=== PATIENT | female | born 1960 | race Caucasian/White ===

== ENCOUNTER 2017-10-30 13:15 | Emergency (ER) | payer SELFPAY ==
--- NOTE | 2017-10-30 13:58 | UC ---
Lower Extremity/Ankle HPI - HPI Summary HPI Summary: Patient fell about 2 weeks ago and several days later noticed left lower extremity pain and swelling. Since then pain, swelling and redness of the skin have worsened. She is no longer able to walk without significant pain. She denies fever, chest pain, shortness of breath, dizziness. 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 - History of Current Complaint Chief Complaint: UCLowerExtremity Stated Complaint: LEG SWELLING Time Seen by Provider: 10/30/17 13:43 Hx Obtained From: Patient Onset/Duration: Gradual Onset, Lasting Weeks, Still Present Severity Initially: Moderate Severity Currently: Moderate Pain Intensity: 5 Pain Scale Used: 0-10 Numeric Aggravating Factor(s): Standing, Ambulation Alleviating Factor(s): Rest Able to Bear Weight: Yes - with pain - Allergies/Home Medications Allergies/Adverse Reactions: Allergies Allergy/AdvReac Type Severity Reaction Status Date / Time shellfish derived Allergy Vomiting Verified 10/30/17 13:33 Home Medications: Home Medications NK [No Home Medications Reported] 10/30/17 [History Confirmed 10/30/17] PMH/Surg Hx/FS Hx/Imm Hx Previously Healthy: Yes - 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 None have received medical evaluations - Social History Alcohol Use: None Substance Use Type: None Smoking Status (MU): Never Smoked Tobacco Review of Systems Constitutional: Negative Skin: Other - Left lower extremity erythema Respiratory: Negative Cardiovascular: Negative Gastrointestinal: Negative Genitourinary: Negative Musculoskeletal: Calf Tenderness, Decreased ROM, Edema All Other Systems Reviewed And Are Negative: Yes Physical Exam Triage Information Reviewed: Yes Appearance: Well-Appearing, No Pain Distress, Obese Vital Signs: Initial Vital Signs Temp 96.6 F 10/30/17 13:27 Pulse 102 10/30/17 13:27 Resp 18 10/30/17 13:27 BP 210/113 10/30/17 13:27 Pulse Ox 98 10/30/17 13:27 Vital Signs Reviewed: Yes Eyes: Positive: Conjunctiva Clear ENT: Positive: Hearing grossly normal Neck: Positive: Supple Respiratory Exam: Normal Cardiovascular: Positive: Tachycardia Abdomen Description: Positive: Soft Musculoskeletal: Positive: ROM Limited @ - Left foot and ankle, Edema @ - 3+ pitting edema mid calf to left foot Neurological: Positive: Alert Psychological: Positive: Age Appropriate Behavior Skin: Positive: Other - Left lower extremity erythema from below the knee to foot Lower Extremity Course/Dx - Course Course Of Treatment: Patient advised to go to the [facility] for further evaluation of her left lower extremity redness and swelling. Concern for blood clot vs cellulitis vs fracture. Patient also has dangerously elevated blood pressure. 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 Unknown for how long her pressure has been this elevated. PT OFFERED TRANSPORT BY AMBULANCE BUT DECLINES. ADVISED THAT BY NOT TRAVELING IN A MONITORED SETTING SHE COULD BE RISKING WORSENING OF HER CONDITION THAT COULD POSE A THREAT TO HER LIFE, HEALTH AND MEDICAL SAFETY. SHE VERBALIZES UNDERSTANDING AND CONTINUES TO DECLINE AMBULANCE TRANSFER. - Differential Dx/Diagnosis Provider Diagnoses: 1. LLE EDEMA/ERYTHEMA. 2. UNCONTROLLED HYPERTENSION Discharge - Sign-Out/Discharge Documenting (check all that apply): Discharge - Discharge Plan Condition: Stable Disposition: HOME Patient Education Materials: Leg Edema (ED), Hypertension (ED) Referrals: No Primary Care Phys,NOPCP [Primary Care Provider] - Additional Instructions: Go directly to the [facility] from here for further evaluation of your left lower extremity redness/swelling and your significantly elevated blood pressure. YOU HAVE DECLINED AMBULANCE TRANSFER. BE ADVISED THAT BY NOT TRAVELING IN A MONITORED SETTING YOU COULD BE RISKING WORSENING OF YOUR CONDITION THAT COULD POSE A THREAT TO YOUR LIFE, HEALTH AND MEDICAL SAFETY. CALL THE NUMBER BELOW FOR ASSISTANCE IN ESTABLISHING WITH A PCP An additional resource available to assist in finding the appropriate physician for your health care needs is the [facility] ([facility]). You may contact them by calling [phone]. - Billing Disposition and Condition Condition: STABLE Disposition: HOME
[2017-10-30 14:16] VITALS: BP 210/90
== END 2017-10-30 14:10 | disposition home or self-care (01) ==
LOC: UCEAST 13:15
DX: R60.0 Localized edema (principal); I10 Essential (primary) hypertension; M79.605 Pain in left leg; R00.0 Tachycardia, unspecified
CPT/HCPCS: 99202; G0463

== ENCOUNTER 2017-10-30 14:39 | Inpatient (IN) | payer MEDICAID ==
[2017-10-30 16:47] LABS: EGFR Non-African American 73.4 (>60)
[2017-10-30 16:50] LABS: Hematocrit 38 % (35-47); Hemoglobin 12.8 g/dl (12.0-16.0); Mean Corpuscular HGB Conc 34 g/dl (31-36); Mean Corpuscular Hemoglobin 29 pg (27-31); Mean Corpuscular Volume 87 fL (80-97); Mean Platelet Volume 9.5 um3 (7.4-10.4); Platelet Count 442 10^3/ul (150-450); Red Blood Count 4.35 10^6/ul (4.0-5.4); Red Cell Distribution Width 14 % (10.5-15); White Blood Count 15.9 10^3/ul (3.5-10.8)
--- NOTE | 2017-10-30 16:52 | ED ---
Skin Complaint - HPI Summary HPI Summary: C/O LLE PAIN, SWELLING, REDNESS X 11 DAYS, WORSE IN PAST 3-4 DAYS. ALSO C/O "INCONTINENCE BECAUSE I CANT GET TO BATHROOM FAST ENOUGH BECAUSE OF LEG PAIN". HX OF FALL 2 WEEKS AGO, WITH NO APPARENT WOUNDS. DENIES PURULENT D/C, FEVER, CP , SOB, LOSS OF SENSATION OF FUNCTION IN LLE, N/V/D, ABDO PAIN, URINARY PAIN. MED HX UNKNOWN. 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 - History of Current Complaint Chief Complaint: EDRashSkinAbscess Time Seen by Provider: 10/30/17 15:11 Stated Complaint: LT LEG PROBLEM Hx Obtained From: Patient Onset/Duration: Started Days Ago, Started Weeks Ago Skin Exposure Onset/Duration: Days Ago Timing: Constant Onset Severity: Moderate Current Severity: Moderate Pain Intensity: 6 Pain Scale Used: 0-10 Numeric Skin Location: Discrete, Leg Character: Swelling, Pain, Redness, Painful Aggravating Symptom(s): Touch, Other: - WEIGHT BEARING Alleviating Symptom(s): Nothing Related History: Trauma - Allergy/Home Medications Allergies/Adverse Reactions: Allergies Allergy/AdvReac Type Severity Reaction Status Date / Time shellfish derived Allergy Vomiting Verified 10/30/17 13:33 PMH/Surg Hx/FS Hx/Imm Hx Endocrine/Hematology History: Denies: Hx Anticoagulant Therapy Infectious Disease History: No Infectious Disease History: Denies: Traveled Outside the [place] in Last 30 Days - Family History Known Family History: Positive: Unknown - [employer] scientists. None have received medical evaluations - Social History Alcohol Use: None Substance Use Type: Reports: None Smoking Status (MU): Never Smoked Tobacco Review of Systems Constitutional: Negative Eyes: Negative ENT: Negative Cardiovascular: Negative Respiratory: Negative Gastrointestinal: Negative Positive: incontinence Musculoskeletal: Negative Positive: Other Neurological: Negative Psychological: Normal All Other Systems Reviewed And Are Negative: No Physical Exam Triage Information Reviewed: Yes Vital Signs On Initial Exam: Initial Vitals Temp Pulse Resp BP Pulse Ox 98.7 F 104 16 197/99 99 10/30/17 14:40 10/30/17 14:40 10/30/17 14:40 10/30/17 14:40 10/30/17 14:40 Vital Signs Reviewed: Yes Appearance: Positive: Well-Appearing Skin: Positive: Warm, Tender, Erythema @. Negative: Weeping Skin/Lesions, Lymphangitis Head/Face: Positive: Normal Head/Face Inspection Eyes: Positive: Normal ENT: Positive: Normal ENT inspection Neck: Positive: Supple Respiratory/Lung Sounds: Positive: Clear to Auscultation Cardiovascular: Positive: Normal Abdomen Description: Positive: Nontender Musculoskeletal: Positive: Edema Left Neurological: Positive: Normal Psychiatric: Positive: Normal AVPU Assessment: Alert - Nahid Coma Scale Best Eye Response: 4 - Spontaneous Best Motor Response: 6 - Obeys Commands Best Verbal Response: 5 - Oriented Coma Scale Total: 15 Procedures - Incision and Drainage Site: left medial ankle Anesthesia: Other - none. pt opted for simple incision w/o anesthesia Instrument(s): Scalpel - superficial lancing. no purulent drainage. no indication of abscess per local US by dr salmeron Packing: Gauze Diagnostics - Vital Signs Vital Signs Temp Pulse Resp BP Pulse Ox 10/30/17 14:40 98.7 F 104 16 197/99 99 - Laboratory Result Diagrams: 10/30/17 16:18 10/30/17 16:18 Lab Statement: Any lab studies that have been ordered have been reviewed, and results considered in the medical decision making process. - Ultrasound No standard instances Ultrasound Interpretation: No Acute Changes Ultrasound Interpretation Completed By: Radiologist - EKG 1 Cardiac Rate: Tachycardia EKG Rhythm: Sinus Tachycardia ST Segment: Non-Specific Ectopy: None - Additional Comments Diagnostic Additional Comments: PT REFUSED PAIN MEDICATION. Course/Dx - Differential Diagnoses - Skin Complaint Differential Diagnoses: Cellulitis - Diagnoses Provider Diagnoses: Cellulitis, Hypertension, Diabetes mellitus, new onset, Inadequate healthcare resources, UTI (urinary tract infection) - Physician Notifications Instructed by Provider To: Admit As Inpatient Discharge - Sign-Out/Discharge Documenting (check all that apply): Discharge - ADMIT - Discharge Plan Condition: Stable Disposition: ADMITTED TO [facility] Billing Disposition and Condition Condition: STABLE Disposition: [facility]
--- NOTE | 2017-10-30 17:03 | RAD ---
INDICATION: Right wrist swelling left lower extremity. COMPARISON: There are no prior studies available for comparison. TECHNIQUE: Multiple real-time, color flow and Doppler tracings of the left lower extremity were obtained. FINDINGS: The common femoral, femoral, profunda femoral and popliteal veins all demonstrate normal compressibility, augmentation with compression and phasic response with respiration. The posterior tibial and peroneal veins demonstrate normal compressibility and augmentation with compression. IMPRESSION: NO EVIDENCE FOR DEEP VENOUS THROMBOSIS.
[2017-10-30] MEDS ORDERED: Insulin REGULAR(*) 1 UNITS UNIT SUBCUT ONE (18:14)
[2017-10-30] MEDS ORDERED: NS 0.9% 1000 ML* 1,000 ML IV ONE (18:15)
[2017-10-30] MEDS ORDERED: cefTRIAXone(*) 2 GM in NS 0.9% 100 ML* 100 ML IVPB ONE (19:58)
[2017-10-30] MEDS ORDERED: Vancomycin(*) 1,000 MG in NS 0.9% 250 ML* 250 ML IVPB ONE (19:58)
[2017-10-30] MEDS ORDERED: Al Hydrox/Mg Hydrox/Simet LIQ* 30 ML UDC PO PRN (19:59)
[2017-10-30] MEDS ORDERED: Docusate CAP* 100 MG PO PRN (19:59)
[2017-10-30] MEDS ORDERED: Senna TAB PO PRN (19:59)
[2017-10-30] MEDS ORDERED: Morphine VIAL* 4 MG/ML VIAL (1 ml vial) IV PRN (19:59)
[2017-10-30] MEDS ORDERED: Ondansetron INJ* 2 MG/ML VIAL IV PRN (19:59)
[2017-10-30] MEDS ORDERED: Vancomycin(*) 0 MG in NS 0.9% 250 ML* 250 ML IVPB SCH (20:00)
[2017-10-30] MEDS ORDERED: Iodixanol* (CONTRAST) 320 MG/ML 100 ML SDV IV ONE (20:07)
[2017-10-30] MEDS ORDERED: Dextrose 50% Syringe 50 ML* 25 GM/50 ML SYRINGE IV PUSH PRN ×2 (20:12→20:13)
[2017-10-30] MEDS ORDERED: Vancomycin(*) 1,500 MG in NS 0.9% 250 ML* 250 ML IVPB ONE (20:15)
[2017-10-30 20:19] LABS: Urine Appearance Cloudy; Urine Blood 2+ (Negative); Urine Color Yellow; Urine Ketones 1+ (Negative); Urine Protein 1+(30 mg/dL) (Negative); Urine Specific Gravity 1.032 (1.010-1.030); Urine Urobilinogen Negative (Negative)
[2017-10-30] MEDS ORDERED: Vancomycin per Pharmacy* NOTE FOLLOW UP PRN (20:45)
--- NOTE | 2017-10-30 20:52 | RAD ---
INDICATION: Left lower leg infection evaluate for abscess, concern for septic joint. COMPARISON: There are no prior studies available for comparison. TECHNIQUE: Contiguous axial sections were obtained of the left lower leg. Images were reconstructed in the sagittal and coronal planes. The exam was performed following intravenous injection of 100 mL of Visipaque 320 nonionic contrast. FINDINGS: There is diffuse soft tissue swelling present throughout the lower leg and extending into the ankle and foot. There is fluid tracking in the subcutaneous tissues which is more localized along the posterior medial aspect of the lower leg and most prominent approximately at the level of the medial malleolus. No discrete abscess or walled off collection is noted. No joint effusion is noted within the knee or ankle. No focal osseous abnormality, periosteal reaction or erosive changes are seen. IMPRESSION: FINDINGS MOST CONSISTENT WITH CELLULITIS DESCRIBED. THERE IS MORE LOCALIZED FLUID COLLECTING ALONG THE MEDIAL POSTERIOR ASPECT OF THE DISTAL LOWER LEG WHICH IS MOST PROMINENT AROUND THE LEVEL OF THE MEDIAL MALLEOLUS. NO DISCRETE WALLED OFF COLLECTION OR ABSCESS IS SEEN. IF THE PATIENT'S SYMPTOMS PERSIST AND THE SWELLING REMAINS IN THIS AREA RECOMMEND A ULTRASOUND FOLLOW-UP TO EXCLUDE A DEVELOPING ABSCESS.
[2017-10-30 21:49] LABS: Monocytes % 2 % (0-7)
[2017-10-30] MEDS ORDERED: Heparin VIAL(*) 5000 UNITS/ML VIAL (FIVE THOUSAND) SUBCUT SCH (22:00)
[2017-10-30] MEDS ORDERED: Insulin GLARGINE(*) 1 UNITS UNIT SUBCUT SCH (22:00)
--- NOTE | 2017-10-30 22:53 | HP ---
HISTORY AND PHYSICAL: DATE OF ADMISSION: 10/30/17 TIME OF EVALUATION: 1999. PRIMARY CARE PHYSICIAN: The patient does not have a primary care physician. CHIEF COMPLAINT: Left lower extremity redness and swelling. 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 She states about 2 weeks ago, she began developing left lower extremity redness. She states she had a flu-like illness and is feeling lightheaded and dizzy. She went to her basement to do her laundry and she fell in the bottom step. She thought she sprained her ankle and she denied any open wound or any bleeding or sores and shortly after that started with redness in her toes and then it spread up her leg. It has gotten significantly worse over the past few days. She has not really been able to walk on it. Limited mobility in her ankle. She denies any fevers or chills. No nausea, vomiting, diarrhea, no abdominal pain, no chest pain, no shortness of breath. She states that she has had some urinary incontinence because it is too hard for her to get to the bathroom. She states she urinates every 2 hours. She has had increase in thirst. She denies any headache, no blurry vision, no vision changes. As mentioned, she has not been evaluated for any medical problems, routine screening labs or routine preventative workup. The patient was initially seen in Urgent Care and they recommended her to come to the emergency room. In the emergency room, the patient had labs, imaging. She was given a liter of normal saline and 5 units of subcu insulin and was referred to the hospitalist service for further evaluation. The provider in the emergency room tried to franchesca the cellulitis and was not able to get any purulent fluid out. PAST MEDICAL HISTORY: Has not seen a physician. MEDICATIONS: None. ALLERGIES: Allergic to SHELLFISH. FAMILY HISTORY: Mother is alive. She has had a stroke and dementia. Father, she is estranged from. Her brother is healthy. No early coronary disease. SOCIAL HISTORY: She lives with her mother, who has dementia. She takes care of her. She works for a [employer] company with her brother. No history of tobacco, alcohol, or illicit drug use. Her friend, Denia Love, is her healthcare proxy, . REVIEW OF SYSTEMS: A 14-point review of systems mentioned in the HPI, otherwise negative. In addition, the patient has had weight loss over the past few days due to the inability to not feeling on getting around. PHYSICAL EXAMINATION GENERAL: No acute distress, resting comfortably. VITAL SIGNS: Temp is 98.7, pulse rate 97, respiratory rate 16, oxygen saturation 95% on room air, and blood pressure 172/92. HEENT: Head normocephalic. Pupils equal and reactive, anicteric. Oropharynx: Mucous membranes moist. NECK: Supple. No adenopathy. RESPIRATORY: Clear to auscultation. No wheezes, rhonchi, or rales. CARDIAC: Regular rate and rhythm. Soft systolic murmur heard throughout. ABDOMEN: Soft, nontender, nondistended. EXTREMITIES: The patient with left lower extremity distal to the knee with significant redness, edema, +1 DPs more pronounced over her ankle joint in her left calf region. She has very limited range of motion of the ankle joint due to severe pain. NEUROLOGIC: Alert and oriented x3. No focal neurologic deficits. LABORATORY DATA: White count 15.9, hemoglobin 12.8, hematocrit 38, platelets 442. Sodium 131, potassium 4.4, chloride 94, bicarb 27, BUN 17, creatinine 0.81 , glucose 442, lactic acid 1. Urine shows plus ketones, blood, leuks, white, glucose, bacteria. RADIOGRAPHIC DATA: Venous Doppler study, no evidence for DVT. 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 1. Left lower extremity erythema and edema. Assessment: The patient meeting sepsis criteria secondary to cellulitis. There is concern for possible deep abscess or possibly a septic joint with limited movement of her ankle and she also likely has underlying undiagnosed diabetes. Plan: We will obtain blood cultures, started on vancomycin. I talked to Dr. Parada to continue vanco and we will recommend contacting ortho in the morning to do joint aspiration. He will follow up in the morning. I am also going to get a CT of the leg to further identify if there is any underlying abscess. We will also check inflammatory markers as well. 2. Hyperglycemia. The patient does not have an anion gap. She does have trace ketones and glucose in her urine. I suspect she has an underlying diabetes. She did get some insulin in the emergency room. We will check a hemoglobin A1c. Started her on lispro sliding scale and started her on some Lantus. She will need teaching for insulin as that is the recommendation based on her glucose and hemoglobin A1c. 3. Hypertension. The patient with hypertension, asymptomatic. No findings of end- organ damage. I suspect this is also chronic. Plan: We will start on low dose metoprolol. She would probably benefit from hydrochlorothiazide. At discharge, we will hold off in the setting of her sepsis. We will also check a lipid panel in the morning as well as she likely has metabolic syndrome. 4. FEN. Placed the patient on a diabetic diet. 5. DVT prophylaxis. The patient scores moderate risk. We will place her on heparin subcu t.i.d. 6. Code status: Full code. PATIENT TIME: Greater than 60 minutes spent doing the history and physical, more than half the time was spent in direct patient contact. [id number]/[facility] #: [id number] WILLIAM
[2017-10-30] MEDS: Metoprolol Tartrate TAB* 25 MG PO SCH (23:25)
[2017-10-30] MEDS: Heparin VIAL(*) 5000 UNITS/ML VIAL (FIVE THOUSAND) SUBCUT SCH (23:26)
[2017-10-31] MEDS: Acetaminophen TAB* 325 MG PO PRN ×3 (03:34→22:12)
[2017-10-31] MEDS ORDERED: hydrALAZINE IV* 20 MG/ML VIAL IV SLOW PU PRN (03:41)
[2017-10-31] MEDS: Nystatin TOP POWDER* 15 GM BTL TOPICAL SCH ×3 (04:01→22:13)
[2017-10-31 05:37] LABS: Hematocrit 34 % (35-47); Hemoglobin 11.1 g/dl (12.0-16.0); Mean Corpuscular HGB Conc 33 g/dl (31-36); Mean Corpuscular Hemoglobin 29 pg (27-31); Mean Corpuscular Volume 88 fL (80-97); Mean Platelet Volume 9.4 um3 (7.4-10.4); Platelet Count 353 10^3/ul (150-450); Red Blood Count 3.88 10^6/ul (4.0-5.4); Red Cell Distribution Width 14 % (10.5-15); White Blood Count 14.1 10^3/ul (3.5-10.8)
[2017-10-31 05:47] LABS: ABS Basophils 0.1 10^3/ul (0-0.2); ABS Eosinophils 0.1 10^3/ul (0-0.6); ABS Monocytes 0.9 10^3/ul (0-0.8); ABS Neutrophils 12.1 10^3/ul (1.5-7.7); ABS Nucleated RBC 0 10^3/ul; Eosinophil % 0.5 % (0-6); Lymphocyte % 7.4 % (25-47); Nucleated Red Blood Cells % 0
[2017-10-31 05:58] LABS: EGFR Non-African American 85.5 (>60)
[2017-10-31] MEDS ORDERED: Vancomycin(*) 1,000 MG in NS 0.9% 250 ML* 250 ML IVPB SCH (06:00)
[2017-10-31] MEDS: Heparin VIAL(*) 5000 UNITS/ML VIAL (FIVE THOUSAND) SUBCUT SCH ×3 (06:21→22:11)
[2017-10-31] MEDS ORDERED: Insulin LISPRO* 1 UNITS UNIT SUBCUT SCH ×2 (07:30)
[2017-10-31] MEDS ORDERED: Insulin LISPRO* 1 UNITS UNIT SUBCUT ONE (08:27)
[2017-10-31] MEDS ORDERED: Dextrose 50% Syringe 50 ML* 25 GM/50 ML SYRINGE IV PUSH PRN (08:27)
[2017-10-31] MEDS ORDERED: NS 0.9% 1000 ML* 1,000 ML IV SCH (08:30)
[2017-10-31] MEDS ORDERED: amLODIPine TAB* 5 MG PO SCH (09:00)
[2017-10-31] MEDS: Metoprolol Tartrate TAB* 25 MG PO SCH ×2 (09:00→22:13)
[2017-10-31] MEDS: Insulin GLARGINE(*) 1 UNITS UNIT SUBCUT SCH (09:01)
[2017-10-31] MEDS: Insulin LISPRO* 1 UNITS UNIT SUBCUT SCH ×4 (10:42→22:12)
--- NOTE | 2017-10-31 10:45 | CONS ---
CONSULTATION REPORT: DATE OF CONSULT: 10/31/17 REQUESTING PHYSICIAN: Dr. Gutierrez. CONSULTING SERVICE: Infectious Disease. REASON FOR CONSULTATION: Left leg swelling and erythema. IMPRESSION: 1. Left lower extremity cellulitis likely due to group A streptococcus, she does have pain with weightbearing and range of motion of the ankle; however, because of the diffuse process and the degree of inflammation in the soft tissues around the ankle, I suspect this most likely is just due to the cellulitis. 2. Obesity. 3. Undiagnosed diabetes, hemoglobin A1c was 14.6. RECOMMENDATIONS: Stop vancomycin. Start clindamycin 600 mg IV every 8 hours. We will follow her leg exam closely, and I expect over the next 2 or 3 days, she is going to have ongoing significant improvement in the erythema throughout the leg and in ankle pain. If not, would have to reconsider the diagnosis of septic joint, which again at this point I think is less likely. HISTORY OF PRESENT ILLNESS: This 56-year-old woman does not have medical care since teenager who comes to the hospital with left leg swelling. About a week and a half ago, she banged her ankle when she fell down the stairs in her basement, had pain and swelling developed. She thought it was going to go away , but instead it got more and more red. The redness spread up her leg. She developed fevers and chills at home, so she came to the hospital yesterday. Initially, she was at urgent care and they recommended she come to the ER. Her white count was 15,000. She was started on vancomycin and ceftriaxone. She had a fever of 38 degrees overnight. Blood cultures were sent and are pending. She had a couple of bullae on her leg and they tried to open one up in the ER last night, got some serous fluid. This morning, she feels the redness and swelling in the leg is already receding and that her ankle is little less painful. She has not had an infection like this in the past. 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 PAST MEDICAL HISTORY: 1. Obesity. 2. Type 2 diabetes with neuropathy. MEDICATIONS: 1. Tylenol. 2. Amlodipine. 3. Dextrose. 4. Docusate. 5. Heparin subcutaneous injection. 6. Insulin glargine. 7. Insulin lispro. 8. Metoprolol. 9. Percocet as needed. 10. Vancomycin 1 g every 12 hours. ALLERGIES: SHELLFISH. FAMILY HISTORY: Mother is alive with dementia. Father, she is estranged, does not know his history. SOCIAL HISTORY: She lives in [place]. She is a nonsmoker. Lives with her mom. REVIEW OF SYSTEMS: A 14-point review of systems was all negative except as noted above in history of present illness. PHYSICAL EXAM: Vital Signs: Temperature is 36.3, heart rate 86, respiratory rate 16, blood pressure 160/70, oxygen saturation 95% on room air. In general, she is awake, not in distress. Neurologic: She is oriented x3. Follows all commands. HEENT: There is no conjunctival hemorrhage. Oropharynx is without lesions. Neck is supple without mass. Lymph Nodes: There is no inguinal, axillary, or epitrochlear lymphadenopathy. Heart has regular rate and rhythm without murmurs, rubs, or gallops. Lungs are clear to auscultation bilaterally. Abdomen: Soft, nontender, nondistended. There are bowel sounds present. Skin: There is diffuse erythema from 3-4 inches below the knee through the midfoot with diffuse edema in the same distribution. There is no crepitus or fluctuance. There are couple of small serous fluid-filled bullae along the way. Musculoskeletal: There is no spine tenderness to palpation. There is left ankle joint pain with passive and active range of motion. LABORATORY DATA: Blood cell count 14, down from 16. Hemoglobin 11, platelets 353. Creatinine is 0.7. CRP was 165. Please see impressions and recommendations outlined above. Thanks for asking me to see Ms. Butcher in consultation. [id number]/[facility] #: [id number] WILLIAM
--- NOTE | 2017-10-31 10:55 | PN ---
Subjective Date of Service: 10/31/17 Interval History: Pt feels better. left leg edema improved Objective Active Medications: Acetaminophen (Tylenol Tab*) 650 mg PO Q4H PRN PRN Reason: FEVER/PAIN Last Admin: 10/31/17 03:34 Dose: 650 mg Al Hydrox/Mg Hydrox/Simethicone (Maalox Plus*) 30 ml PO Q6H PRN PRN Reason: INDIGESTION Amlodipine Besylate (Norvasc Tab*) 10 mg PO DAILY [facility] Dextrose (D50w Syringe 50 Ml*) 12.5 gm IV PUSH .FOR FS < 60 - SS PRN PRN Reason: FS < 60 Docusate Sodium (Colace Cap*) 100 mg PO BID PRN PRN Reason: CONSTIPATION Heparin Sodium (Porcine) (Heparin Vial(*)) 5,000 units SUBCUT Q8HR [facility] Last Admin: 10/31/17 06:21 Dose: 5,000 units Hydralazine HCl (Apresoline Iv*) 5 mg IV SLOW PU Q6H PRN PRN Reason: BLOOD PRESSURE Last Admin: 10/31/17 04:01 Dose: 5 mg Sodium Chloride (Ns 0.9% 1000 Ml*) 1,000 mls @ 150 mls/hr IV PER RATE [facility] Clindamycin HCl/Dextrose (Cleocin 600 Mg Ivpremix(*) Sdv) 600 mg in 50 mls @ 100 mls/hr IV Q8H [facility] Insulin Glargine (Lantus(*)) 20 units SUBCUT Q24H [facility] Last Admin: 10/31/17 09:01 Dose: 20 units Insulin Human Lispro (Humalog*) 0 units SUBCUT Q4HR [facility] PRN Reason: Protocol Last Admin: 10/31/17 10:42 Dose: Not Given Metoprolol Tartrate (Lopressor Tab*) 25 mg PO BID [facility] Last Admin: 10/31/17 09:00 Dose: 25 mg Morphine Sulfate (Morphine Vial*) 2 mg IV Q4H PRN PRN Reason: PAIN Nystatin (Nystatin Top Powder*) 1 applic TOPICAL BID [facility] Last Admin: 10/31/17 09:03 Dose: 1 applic Ondansetron HCl (Zofran Inj*) 4 mg IV Q4H PRN PRN Reason: NAUSEA/VOMITING Oxycodone/Acetaminophen (Percocet 5/325 Tab*) 1 tab PO Q4H PRN PRN Reason: Pain Pharmacy Profile Note (Vancomycin Trough Check) 1 note FOLLOW UP 0600 ONE Stop: 11/01/17 06:01 Senna (Senokot Tab*) 1 tab PO BID PRN PRN Reason: CONSTIPATION Vital Signs - 8 hr 10/31/17 10/31/17 10/31/17 03:36 06:29 09:18 Temperature 98.2 F 97.3 F Pulse Rate 99 86 Respiratory 18 16 18 Rate Blood Pressure 213/91 161/73 (mmHg) O2 Sat by Pulse 95 95 Oximetry Oxygen Devices in Use Now: None Appearance: 56 yo F in nAD, AAOx3 Eyes: No Scleral Icterus, PERRLA Ears/Nose/Mouth/Throat: NL Teeth, Lips, Gums, Mucous Membranes Moist Neck: NL Appearance and Movements; NL JVP, Trachea Midline Respiratory: Symmetrical Chest Expansion and Respiratory Effort, Clear to Auscultation Cardiovascular: NL Sounds; No Murmurs; No JVD, RRR Abdominal: NL Sounds; No Tenderness; No Distention, No Hepatosplenomegaly Lymphatic: No Cervical Adenopathy Extremities: No Clubbing, Cyanosis, - - lef leg edema , cellulitis from the level of ankle to left knee. left medial malleolus skin is discolored, white, mid lesion small incision -not draining, no loculated fluid on palpation Skin: No Nodules or Sclerosis, - - see above Neurological: Alert and Oriented x 3, NL Muscle Strength and Tone Result Diagrams: 10/31/17 05:23 10/31/17 05:23 Assess/Plan/Problems-Billing Assessment: 56 yo F, obese, moved from [place] this year, no medical care since age of 19, now with left leg cellulitis - Patient Problems (1) Cellulitis and abscess of left leg Comment: CT showed possible organizing abscess, but incision in ED yielded no purulence Appreciate DR. Cabrera's consult-cont to treat cellulitis with clinda, no need for ortho consult for now. Pt has no problems with ROM in left ankle (2) HTN (hypertension) Comment: new dx. Cont lopressor, added Norvasc today (3) DM2 (diabetes mellitus, type 2) Comment: New dx. cont ISS with accucheks Q4 for the time being Lantus increased DM education ordered. Will start glipizide Hb a1C 14.6 (4) Hyponatremia Comment: spurious , due to high sugars (5) DVT prophylaxis Comment: HSQ Status and Disposition: inpatient
[2017-10-31] MEDS: Clindamycin 600 MG IVPREMIX(* 600 MG/50 ML SDV IV SCH ×2 (11:00→18:35)
--- NOTE | 2017-10-31 12:00 | CONS ---
CONSULTATION REPORT: DATE OF CONSULT: 10/31/17 ATTENDING PROVIDER: Dr. Jaxon Zavala. PRIMARY CARE PHYSICIAN: The patient does not have a primary care physician. She is a [employer], has not seen a medical doctor since age 19. CHIEF COMPLAINT: Left lower extremity cellulitis, rule out septic ankle. HISTORY OF PRESENT ILLNESS: The patient is a 56-year-old female with no known past medical history. She is a [employer], has not seen a medical doctor since age 19. She states that 3 weeks ago, she started to developing redness and pain of her left lower extremity, which started distally at the toes and has progressed up her leg. She did have a flu-like illness, feeling off balance and lightheaded for 1 day, which resolved. She reports that she did not have any known fever or chills. She has used prayer for treatment of condition, stating that she came into hospital after 3 weeks when she was having difficulty completing her activities of daily living including caring for her mother. She reports that she has very limited mobility of the left ankle as well as pain, thus ends being admitted to hospital and started on antibiotics, the redness and pain are much improved. She does not have good range of motion at the ankle due to swelling, stiffness, and pain. She denies any fever, chills, headache, nausea, vomiting, chest pain, shortness of breath, dizziness, and she does feel that the cellulitis of her left leg is improving since the arrival at the hospital. PAST MEDICAL HISTORY: Not available. MEDICATIONS: None. Additionally does not take any supplements or natural remedies. ALLERGIES: SHELLFISH. No known medication allergies. FAMILY HISTORY: Family reports unknown family history. SOCIAL HISTORY: Lives with and cares for mother. No alcohol, drug, or tobacco use. Healthcare proxy, Denia Love. REVIEW OF SYSTEMS: General: Denies fever or chills. Head: Denies headache. EENT: Denies any changes in vision. Cardiac: Denies known cardiac history. Denies chest pain. Respiratory: Denies any shortness of breath or cough. GI: Denies any abdominal pain, nausea, vomiting, diarrhea, or constipation. : Denies any urinary discomfort, states that she must wear Depend despite being continent as with her painful left ankle she has difficulty getting to the bathroom. Musculoskeletal: Left lower extremity, ankle and foot is painful, though pain is improving. No pain elsewhere. Skin: Redness, which has improved since admission into the hospital, formerly reporting that her left lower leg was deep red to purple. No other rashes noted. Hematology: No known blood clots. Endocrine: The patient has been diagnosed as a diabetic since admission to the hospital, but this was unknown to her previous to admission. PHYSICAL EXAM: General: In no acute distress, resting comfortably in bed. Vital Signs: Temperature 97.3, pulse rate 86, respiratory rate 16, oxygen saturation 95%, blood pressure 161/73. HEENT: Head is normocephalic. Eyes EOMI. Respiratory: Normal rate and effort of breathing. Extremities: Left lower extremity, red erythema from forefoot to three-quarters of the way up the calf. There is a demarcated line of previous cellulitis, which the erythema has regressed from. The patient is tender to palpation and indurated throughout the entirety of this erythematous area. She does have minimally painful active and passive dorsiflexion and plantarflexion, though both of these movements are quite limited seemingly by swelling. Due to swelling she cannot invert or shena the ankle. Over the medial malleolus there is a blister that has been lanced, there is no current drainage or fluctuance. Medial mid- calf, there is also roughly 2 x 2 pustule filled with serosanguineous fluid. She has good range of motion without pain at the left knee and the left hip. The patient is able to wiggle the toes. There is no streaking erythema. The patient is able to wiggle the toes. Capillary refill distally less than 2 seconds. DIAGNOSTIC STUDIES/LAB DATA: Left lower extremity CT scan: Impression suggests findings most consistent with cellulitis as described. There is more localized fluid collecting along the medial posterior aspect of the distal lower leg, which is most prominent on the level of medial malleolus. No discrete walled-off collection or abscess is seen. White blood cell count 14.1, hemoglobin 11.1, hematocrit 34. Sodium 129, chloride 97, glucose 497. ASSESSMENT: A 56-year-old female with left lower extremity cellulitis, rule out septic joint. PLAN: Continue antibiotics per Infectious Disease, unlikely septic joint, please feel free to consult orthopedics with further concern. NADEEN VIEIRA [id number]/[facility] #: [id number] [facility]
[2017-10-31] MEDS: amLODIPine TAB* 5 MG PO SCH (15:15)
--- NOTE | 2017-10-31 16:01 | CONSULT ---
Subjective Reason for Visit: Left lower extremity redness and swelling Admission Date: 10/30/17 Glucose Level On Admission: 442 History Of Present Illness: Ms. Butcher is a 56 year old female who reports that approximately 2 weeks ago she began feeling ill with what she describes as flu like symptoms. She had been feeling weak, dizzy, incontinent of urine, and had general malaise. She fell in her home and sustained injuries to her left lower leg, right knee, and right arm. At first, she ignored these injuries, but noted that the left ankle and leg became red, painful and swollen. After several days with worsening symptoms, she sought treatment in the emergency department at [facility]. 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 In the emergency room, she was diagnosed with cellulitis of the left lower extremity. Her blood glucose was noted to be 442, Hgb A1C 14.6% and she was diagnosed with type II diabetes. She plans to establish care with a primary care provider upon discharge. She hopes to be able to manage diabetes with lifestyle modification alone and prefers not to take medication at all but is especially adamant that she does not want to use insulin. Patient History Surgical History: None Past Family History: Mother-CVA Lives With: Family Marital Status: Single Preferred/Primary Language: Serbian Hx Tobacco Use: No Review Of Systems - Review of Systems Constant: - - Reports fatigue, weakness and dizziness Endocrine: - - reports polyuria Objective Allergies Allergy/AdvReac Type Severity Reaction Status Date / Time shellfish derived Allergy Vomiting Verified 10/30/17 13:33 Home Medications Medication Instructions Recorded Confirmed Type Cephalexin CAP* [Keflex CAP*] 500 mg PO QID 7 Days #28 cap 10/30/17 Rx Metformin HCl 500 mg PO BID 30 Days #60 tablet 10/30/17 Rx Sulfamethox/Trimethoprim DS* 1 tab PO BID 10 Days #20 tab 10/30/17 Rx [Bactrim DS 800/160 TAB*] Hospital Medications: Current Medications Acetaminophen (Tylenol Tab*) 650 mg PO Q4H PRN PRN Reason: FEVER/PAIN Last Admin: 10/31/17 15:15 Dose: 650 mg Al Hydrox/Mg Hydrox/Simethicone (Maalox Plus*) 30 ml PO Q6H PRN PRN Reason: INDIGESTION Amlodipine Besylate (Norvasc Tab*) 10 mg PO DAILY@1400 [facility] Last Admin: 10/31/17 15:15 Dose: 10 mg Dextrose (D50w Syringe 50 Ml*) 12.5 gm IV PUSH .FOR FS < 60 - SS PRN PRN Reason: FS < 60 Docusate Sodium (Colace Cap*) 100 mg PO BID PRN PRN Reason: CONSTIPATION Glipizide (Glucotrol Tab*) 5 mg PO 0800,1700 [facility] Heparin Sodium (Porcine) (Heparin Vial(*)) 5,000 units SUBCUT Q8HR [facility] Last Admin: 10/31/17 15:16 Dose: 5,000 units Hydralazine HCl (Apresoline Iv*) 5 mg IV SLOW PU Q6H PRN PRN Reason: BLOOD PRESSURE Last Admin: 10/31/17 04:01 Dose: 5 mg Sodium Chloride (Ns 0.9% 1000 Ml*) 1,000 mls @ 150 mls/hr IV PER RATE [facility] Last Admin: 10/31/17 11:00 Dose: 150 mls/hr Clindamycin HCl/Dextrose (Cleocin 600 Mg Ivpremix(*) Sdv) 600 mg in 50 mls @ 100 mls/hr IV Q8H [facility] Last Admin: 10/31/17 11:00 Dose: 100 mls/hr Insulin Glargine (Lantus(*)) 20 units SUBCUT Q24H [facility] Last Admin: 10/31/17 09:01 Dose: 20 units Insulin Human Lispro (Humalog*) 0 units SUBCUT Q4HR [facility] PRN Reason: Protocol Last Admin: 10/31/17 15:16 Dose: 6 unit Metoprolol Tartrate (Lopressor Tab*) 25 mg PO BID [facility] Last Admin: 10/31/17 09:00 Dose: 25 mg Morphine Sulfate (Morphine Vial*) 2 mg IV Q4H PRN PRN Reason: PAIN Nystatin (Nystatin Top Powder*) 1 applic TOPICAL BID [facility] Last Admin: 10/31/17 09:03 Dose: 1 applic Ondansetron HCl (Zofran Inj*) 4 mg IV Q4H PRN PRN Reason: NAUSEA/VOMITING Oxycodone/Acetaminophen (Percocet 5/325 Tab*) 1 tab PO Q4H PRN PRN Reason: Pain Senna (Senokot Tab*) 1 tab PO BID PRN PRN Reason: CONSTIPATION Lab Data: Sodium 129 mmol/L (139-145) L 10/31/17 05:23 Potassium 3.9 mmol/L (3.5-5.0) 10/31/17 05:23 BUN 14 mg/dL (6-24) 10/31/17 05:23 Creatinine 0.71 mg/dL (0.51-0.95) 10/31/17 05:23 Hemoglobin A1c 14.6 % (4.0-5.6) H 10/30/17 16:18 Calcium 8.3 mg/dL (8.6-10.3) L 10/31/17 05:23 AST 21 U/L (13-39) 10/30/17 16:18 ALT 29 U/L (7-52) 10/30/17 16:18 Triglycerides 100 mg/dL 10/31/17 05:23 Cholesterol 126 mg/dL 10/31/17 05:23 LDL Cholesterol 90 mg/dL 10/31/17 05:23 Vital Signs: Vital Signs 10/31/17 09:18 Respiratory 18 Rate Height: 5 ft 4 in Weight: 103.555 kg Body Mass Index (BMI): 39.2 Physical Exam General Appearance: Positive: Alert, Oriented x3, Obese, Lying In Bed Cardiovascular: Positive: RRR Skin: Wounds - Erythema and swelling LLE. Superficial abrasion R knee., Insulin Injection Sites - are benign Plan Of Care Diagnosis: 56 year old female with newly diagnosed type II diabetes. Pt accepts glucometer teaching today and provided return demonstration of it's use. We discussed the signs, symptoms, and treatment of hypoglycemia, and when to seek medical attention. She refused insulin pen teaching. Given the degree of hyperglycemia and Hgb A1C of 14%, insulin is recommended and this was discussed with the patient. Accepting this diagnosis and treatment plan is certainly challenging for this patient, and meeting with the [facility] may be helpful. She was given a glucometer and a prescription for test strips and lancets will be sent to her pharmacy. She is interested in lifestyle modification and would like to follow up at [facility] as an outpatient after she is discharged. Education Prior Diabetic Education: No Goals Goals: According to the [place] [employer], the following are your goals for Hemaglobin A1C, Blood Glucose. Hemaglobin A1C * <7.0% for most * <6.5% for "healthy" * <8.0% for "Less Healthy" Blood Glucose * Fasting Blood Glucose: 80-130 mg/dl * 2 Hour Post Prandial Glucose <180 mg/dl
[2017-10-31] MEDS: glipiZIDE TAB* 5 MG PO SCH (18:34)
[2017-11-01] MEDS: Clindamycin 600 MG IVPREMIX(* 600 MG/50 ML SDV IV SCH ×3 (02:00→18:20)
[2017-11-01] MEDS: oxyCODONE/Acetamin 5/325 MG* TAB PO PRN ×5 (03:05→22:19)
[2017-11-01] MEDS: Insulin LISPRO* 1 UNITS UNIT SUBCUT SCH ×6 (04:45→22:24)
[2017-11-01 05:46] LABS: ABS Basophils 0.1 10^3/ul (0-0.2); ABS Eosinophils 0.4 10^3/ul (0-0.6); ABS Lymphocytes 1.4 10^3/ul (1.0-4.8); ABS Monocytes 0.8 10^3/ul (0-0.8); ABS Neutrophils 10.1 10^3/ul (1.5-7.7); ABS Nucleated RBC 0 10^3/ul; Eosinophil % 2.9 % (0-6); Hematocrit 32 % (35-47); Hemoglobin 10.8 g/dl (12.0-16.0); Lymphocyte % 10.9 % (25-47); Mean Corpuscular HGB Conc 34 g/dl (31-36); Mean Corpuscular Hemoglobin 30 pg (27-31); Mean Corpuscular Volume 87 fL (80-97); Mean Platelet Volume 9.1 um3 (7.4-10.4); Nucleated Red Blood Cells % 0.1; Platelet Count 351 10^3/ul (150-450); Red Blood Count 3.64 10^6/ul (4.0-5.4); Red Cell Distribution Width 13 % (10.5-15); White Blood Count 12.7 10^3/ul (3.5-10.8)
[2017-11-01 06:00] LABS: EGFR Non-African American 94.6 (>60)
[2017-11-01] MEDS ORDERED: Vancomycin Trough Check NOTE FOLLOW UP ONE (06:00)
[2017-11-01] MEDS: Heparin VIAL(*) 5000 UNITS/ML VIAL (FIVE THOUSAND) SUBCUT SCH ×3 (06:09→22:24)
[2017-11-01] MEDS: Metoprolol Tartrate TAB* 25 MG PO SCH ×3 (08:15→22:19)
[2017-11-01] MEDS: glipiZIDE TAB* 5 MG PO SCH ×3 (08:20→16:59)
[2017-11-01] MEDS: Insulin GLARGINE(*) 1 UNITS UNIT SUBCUT SCH (08:21)
[2017-11-01] MEDS: Nystatin TOP POWDER* 15 GM BTL TOPICAL SCH ×2 (10:00→22:24)
--- NOTE | 2017-11-01 10:23 | PN ---
Progress Note - Progress Note Date of Service: 11/01/17 SOAP: Subjective: CC: cellulitis HPI: 56 year old with untreated diabetes and left leg redness, swelling, pain. All improving since antibiotics, fever resolved. Can move ankle more and put weight on leg with less pain. No rash or diarrhea. Objective: Vital Signs Temp 37.1 C 11/01/17 07:35 Pulse 83 11/01/17 08:04 Resp 18 11/01/17 08:20 BP 180/90 11/01/17 08:04 Pulse Ox 96 11/01/17 07:35 Intake & Output 10/31/17 11/01/17 11/01/17 18:59 06:59 18:59 Intake Total 1490 1590 180 Balance 1490 1590 180 Weight 228 lb 4.8 oz Intake: IV Fluids 20 NS (0.9%) 20 IVPB 1130 ABX - CLINDAMYCIN 130 NS (0.9%) 1000 Oral 1490 440 180 Other: Estimated Void Medium Large # Bowel Movements 1 0 Estimated Stool Amount Medium # Voids 3 1 Gen:awake, no distress Neck: no mass Heart:RRR no murmur Lungs:CTA BL Abd:+BS NTND soft Skin:left leg diffuse edema, mild erythema and warmth mid calf to mid foot; ruptured bullae lower leg MSK: decreased ROM flex/extension/eversion Laboratory Results - last 24 hr 10/31/17 10/31/17 10/31/17 13:35 18:26 21:31 WBC RBC Hgb Hct MCV MCH MCHC RDW Plt Count MPV Neut % (Auto) Lymph % (Auto) [place] % (Auto) Eos % (Auto) Baso % (Auto) Absolute Neuts (auto) Absolute Lymphs (auto) Absolute Monos (auto) Absolute Eos (auto) Absolute Basos (auto) Absolute Nucleated RBC Nucleated RBC % Sodium Potassium Chloride Carbon Dioxide Anion Gap BUN Creatinine Est GFR ( Amer) Est GFR (Non-Af Amer) BUN/Creatinine Ratio Glucose POC Glucose (mg/dL) 285 H 332 H 265 H Calcium 11/01/17 11/01/17 11/01/17 02:14 05:34 05:34 WBC 12.7 H RBC 3.64 L Hgb 10.8 L Hct 32 L MCV 87 MCH 30 MCHC 34 RDW 13 Plt Count 351 MPV 9.1 Neut % (Auto) 79.3 Lymph % (Auto) 10.9 L [place] % (Auto) 6.4 Eos % (Auto) 2.9 Baso % (Auto) 0.5 Absolute Neuts (auto) 10.1 H Absolute Lymphs (auto) 1.4 Absolute Monos (auto) 0.8 Absolute Eos (auto) 0.4 Absolute Basos (auto) 0.1 Absolute Nucleated RBC 0 Nucleated RBC % 0.1 Sodium 133 L Potassium 3.6 Chloride 102 Carbon Dioxide 26 Anion Gap 5 BUN 14 Creatinine 0.65 Est GFR ( Amer) 121.7 Est GFR (Non-Af Amer) 94.6 BUN/Creatinine Ratio 21.5 H Glucose 189 H POC Glucose (mg/dL) 203 H Calcium 8.0 L 11/01/17 06:06 WBC RBC Hgb Hct MCV MCH MCHC RDW Plt Count MPV Neut % (Auto) Lymph % (Auto) [place] % (Auto) Eos % (Auto) Baso % (Auto) Absolute Neuts (auto) Absolute Lymphs (auto) Absolute Monos (auto) Absolute Eos (auto) Absolute Basos (auto) Absolute Nucleated RBC Nucleated RBC % Sodium Potassium Chloride Carbon Dioxide Anion Gap BUN Creatinine Est GFR ( Amer) Est GFR (Non-Af Amer) BUN/Creatinine Ratio Glucose POC Glucose (mg/dL) 91 Calcium Assessment: 1. left leg cellulitis 2. left ankle pain due to cellulitis, improving as is ROM. Diff dx less likely septic arthritis or tenosynovitis 3. T2DM, uncontrolled, with hyperglycemia 4. obesity Plan: 1. continue clindamycin, follow ankle exam, further evaluation if not continuing to improve 2. BG control per hospitalists Discussed with Dr Greenwood
[2017-11-01] MEDS: amLODIPine TAB* 5 MG PO SCH (14:28)
--- NOTE | 2017-11-01 15:07 | PN ---
Subjective Date of Service: 11/01/17 Interval History: Pt stated that she would prefer not to use insulin at discharge. Explained to pt that due to her uncontrolled sugars it may be very difficult to achieve. We are Unable to start metformin till tomorrow due to CT with contrast obtained at admission. Has been ambulating to b-room and back. Left leg is improving. Had some of the glucuometer teaching yesterday but did not use an insulin pen yet Objective Active Medications: Acetaminophen (Tylenol Tab*) 650 mg PO Q4H PRN PRN Reason: FEVER/PAIN Last Admin: 10/31/17 22:12 Dose: 650 mg Al Hydrox/Mg Hydrox/Simethicone (Maalox Plus*) 30 ml PO Q6H PRN PRN Reason: INDIGESTION Amlodipine Besylate (Norvasc Tab*) 10 mg PO DAILY@1400 [facility] Last Admin: 11/01/17 14:28 Dose: 10 mg Dextrose (D50w Syringe 50 Ml*) 12.5 gm IV PUSH .FOR FS < 60 - SS PRN PRN Reason: FS < 60 Docusate Sodium (Colace Cap*) 100 mg PO BID PRN PRN Reason: CONSTIPATION Glipizide (Glucotrol Tab*) 10 mg PO BID AC [facility] Last Admin: 11/01/17 12:42 Dose: 10 mg Heparin Sodium (Porcine) (Heparin Vial(*)) 5,000 units SUBCUT Q8HR [facility] Last Admin: 11/01/17 14:34 Dose: 5,000 units Hydralazine HCl (Apresoline Iv*) 5 mg IV SLOW PU Q6H PRN PRN Reason: BLOOD PRESSURE Last Admin: 10/31/17 04:01 Dose: 5 mg Sodium Chloride (Ns 0.9% 1000 Ml*) 1,000 mls @ 150 mls/hr IV PER RATE [facility] Last Admin: 10/31/17 11:00 Dose: 150 mls/hr Clindamycin HCl/Dextrose (Cleocin 600 Mg Ivpremix(*) Sdv) 600 mg in 50 mls @ 100 mls/hr IV Q8H [facility] Last Admin: 11/01/17 11:19 Dose: 100 mls/hr Insulin Glargine (Lantus(*)) 20 units SUBCUT Q24H [facility] Last Admin: 11/01/17 08:21 Dose: 20 units Insulin Human Lispro (Humalog*) 0 units SUBCUT Q4HR [facility] PRN Reason: Protocol Last Admin: 11/01/17 14:29 Dose: 4 unit Metoprolol Tartrate (Lopressor Tab*) 50 mg PO BID [facility] Last Admin: 11/01/17 08:15 Dose: 50 mg Morphine Sulfate (Morphine Vial*) 2 mg IV Q4H PRN PRN Reason: PAIN Nystatin (Nystatin Top Powder*) 1 applic TOPICAL BID [facility] Last Admin: 11/01/17 10:00 Dose: 1 applic Ondansetron HCl (Zofran Inj*) 4 mg IV Q4H PRN PRN Reason: NAUSEA/VOMITING Oxycodone/Acetaminophen (Percocet 5/325 Tab*) 1 tab PO Q4H PRN PRN Reason: Pain Last Admin: 11/01/17 12:42 Dose: 1 tab Senna (Senokot Tab*) 1 tab PO BID PRN PRN Reason: CONSTIPATION Vital Signs - 8 hr 11/01/17 11/01/17 11/01/17 07:35 08:00 08:04 Temperature 98.7 F Pulse Rate 86 83 Respiratory 18 18 Rate Blood Pressure 166/85 180/90 (mmHg) O2 Sat by Pulse 96 Oximetry 11/01/17 11/01/17 11/01/17 08:20 10:33 12:20 Temperature 98.1 F Pulse Rate 84 Respiratory 18 16 18 Rate Blood Pressure 151/77 (mmHg) O2 Sat by Pulse 94 Oximetry 11/01/17 11/01/17 11/01/17 12:42 13:01 14:57 Temperature 98.6 F Pulse Rate 88 Respiratory 18 18 20 Rate Blood Pressure 151/80 (mmHg) O2 Sat by Pulse 97 Oximetry Oxygen Devices in Use Now: None Appearance: 56 yo obese F in nAD, aAOx3 Eyes: No Scleral Icterus, PERRLA Ears/Nose/Mouth/Throat: NL Teeth, Lips, Gums, Mucous Membranes Moist Neck: NL Appearance and Movements; NL JVP, Trachea Midline Respiratory: Symmetrical Chest Expansion and Respiratory Effort, Clear to Auscultation Cardiovascular: NL Sounds; No Murmurs; No JVD, RRR Abdominal: NL Sounds; No Tenderness; No Distention Lymphatic: No Cervical Adenopathy Extremities: No Clubbing, Cyanosis, - - left leg edema slightly improved. Erythema is unchanged from prior. ROM in left ankle is fair. skin change overlying left medial malleolus is unchanged, no fluctulance noted Skin: No Nodules or Sclerosis, - - see above Neurological: Alert and Oriented x 3, NL Muscle Strength and Tone Result Diagrams: 11/01/17 05:34 11/01/17 05:34 Microbiology and Other Data: Microbiology 10/30/17 21:24 Aerobic Blood Culture - Preliminary Blood Venous No Growth Day 1 Anaerobic Blood Culture - Preliminary No Growth Day 1 Assess/Plan/Problems-Billing Assessment: 56 yo F, obese, moved from [place] this year, no medical care since age of 19, now with left leg cellulitis - Patient Problems (1) Cellulitis and abscess of left leg Comment: CT showed possible organizing abscess, but incision in ED yielded no purulence Appreciate Dr. Cabrera's consult-cont to treat cellulitis with clinda, no need for ortho consult for now. Pt has no problems with ROM in left ankle (2) HTN (hypertension) Comment: new dx. Cont Norvasc , lopressor's dose titrated up today (3) DM2 (diabetes mellitus, type 2) Comment: New dx. cont ISS . HbA1C >14 Lantus at 20 U daily. Can start metformin in AM. Glipizide increased from 5 to 10 mg BID today. Appreciate DM education. Pt was given glucometer and test strips. Reluctant to use insulin at discharge (4) Hyponatremia Comment: spurious , due to high sugars (5) DVT prophylaxis Comment: HSQ Status and Disposition: inpatient
[2017-11-02] MEDS: Clindamycin 600 MG IVPREMIX(* 600 MG/50 ML SDV IV SCH ×3 (02:41→18:36)
[2017-11-02] MEDS: oxyCODONE/Acetamin 5/325 MG* TAB PO PRN ×6 (02:41→23:08)
[2017-11-02] MEDS: Heparin VIAL(*) 5000 UNITS/ML VIAL (FIVE THOUSAND) SUBCUT SCH ×3 (08:19→21:20)
[2017-11-02] MEDS: metFORMIN* 500 MG TAB PO SCH ×2 (09:39→16:19)
[2017-11-02] MEDS: Metoprolol Tartrate TAB* 25 MG PO SCH ×2 (09:39→20:49)
[2017-11-02] MEDS: glipiZIDE TAB* 5 MG PO SCH ×2 (09:39→16:18)
[2017-11-02] MEDS: Insulin LISPRO* 1 UNITS UNIT SUBCUT SCH ×4 (09:40→20:51)
[2017-11-02] MEDS: Insulin GLARGINE(*) 1 UNITS UNIT SUBCUT SCH (09:41)
[2017-11-02] MEDS: Nystatin TOP POWDER* 15 GM BTL TOPICAL SCH ×2 (09:42→20:51)
[2017-11-02] MEDS: amLODIPine TAB* 5 MG PO SCH (14:06)
[2017-11-02] MEDS: Lisinopril TAB* 5 MG PO SCH (14:06)
--- NOTE | 2017-11-02 15:44 | PN ---
Subjective Date of Service: 11/02/17 Interval History: Pt is feeling much better currently. She states the bulla on her L medial ankle broke open when she was walking to the bathroom. She feels a tremendous amount less pressure. Her ankle overall feels better after this. No diarrhea. Objective Active Medications: Acetaminophen (Tylenol Tab*) 650 mg PO Q4H PRN PRN Reason: FEVER/PAIN Last Admin: 10/31/17 22:12 Dose: 650 mg Amlodipine Besylate (Norvasc Tab*) 10 mg PO DAILY@1400 [facility] Last Admin: 11/02/17 14:06 Dose: 10 mg Dextrose (D50w Syringe 50 Ml*) 12.5 gm IV PUSH .FOR FS < 60 - SS PRN PRN Reason: FS < 60 Glipizide (Glucotrol Tab*) 10 mg PO BID AC [facility] Last Admin: 11/02/17 09:39 Dose: 10 mg Heparin Sodium (Porcine) (Heparin Vial(*)) 5,000 units SUBCUT Q8HR [facility] Last Admin: 11/02/17 14:06 Dose: 5,000 units Clindamycin HCl/Dextrose (Cleocin 600 Mg Ivpremix(*) Sdv) 600 mg in 50 mls @ 100 mls/hr IV Q8H [facility] Last Admin: 11/02/17 09:40 Dose: 100 mls/hr Insulin Glargine (Lantus(*)) 20 units SUBCUT Q24H [facility] Last Admin: 11/02/17 09:41 Dose: 20 units Insulin Human Lispro (Humalog*) 0 units SUBCUT ACHS [facility] PRN Reason: Protocol Last Admin: 11/02/17 12:29 Dose: 4 units Lisinopril (Prinivil Tab*) 5 mg PO DAILY [facility] Last Admin: 11/02/17 14:06 Dose: 5 mg Metformin HCl (Glucophage*) 500 mg PO 0800,1700 [facility] Last Admin: 11/02/17 09:39 Dose: 500 mg Metoprolol Tartrate (Lopressor Tab*) 50 mg PO BID [facility] Last Admin: 11/02/17 09:39 Dose: 50 mg Nystatin (Nystatin Top Powder*) 1 applic TOPICAL BID [facility] Last Admin: 11/02/17 09:42 Dose: 1 applic Oxycodone/Acetaminophen (Percocet 5/325 Tab*) 1 tab PO Q4H PRN PRN Reason: Pain Last Admin: 11/02/17 14:05 Dose: 1 tab Vital Signs - 8 hr 11/02/17 11/02/17 11/02/17 08:00 09:39 10:58 Temperature 97.9 F Pulse Rate 79 Respiratory 18 18 18 Rate Blood Pressure 165/84 (mmHg) O2 Sat by Pulse 99 Oximetry 11/02/17 11/02/17 11:50 14:05 Temperature Pulse Rate Respiratory 18 18 Rate Blood Pressure (mmHg) O2 Sat by Pulse Oximetry Oxygen Devices in Use Now: None Appearance: Middle aged female sitting up in bed, NAD Eyes: No Scleral Icterus Ears/Nose/Mouth/Throat: Mucous Membranes Moist Respiratory: Symmetrical Chest Expansion and Respiratory Effort, Clear to Auscultation Cardiovascular: NL Sounds; No Murmurs; No JVD, RRR Abdominal: NL Sounds; No Tenderness; No Distention Extremities: No Clubbing, Cyanosis Skin: - - Marked erythema of the L lower leg/foot, improving per pt, large bulla noted on medial aspect of L ankle- pinkish purulent fluid expressed from bulla Neurological: Alert and Oriented x 3 Result Diagrams: 11/01/17 05:34 11/01/17 05:34 Microbiology and Other Data: Microbiology 10/30/17 21:24 Aerobic Blood Culture - Preliminary Blood Venous No Growth Day 1 Anaerobic Blood Culture - Preliminary No Growth Day 1 Assess/Plan/Problems-Billing Ms Butcher is a 56 yo F with no medical care since age of 19 who presented to the ER with now with left leg cellulitis. - Patient Problems (1) Cellulitis and abscess of left leg Current Visit: Yes Status: Acute Code(s): L03.116 - CELLULITIS OF LEFT LOWER LIMB; L02.416 - CUTANEOUS ABSCESS OF LEFT LOWER LIMB SNOMED Code(s): 452890380 Comment: This afternoon a very large tense bulla on the L medial ankle opened and pinkish purulent fluid is now leaking out. Continue clindamycin for presumed strep. Will follow discomfort in ankle (improved after rupture of bulla ) as there is concern for possible septic tenosynovitis. If pain does not improve over weekend, may need MRI. (2) Sepsis Current Visit: Yes Status: Acute Comment: The patient was septic by sepsis 2 criteria on admisson with leukocytosis/bandemia and tachycardia. Sepsis has now resolved. (3) DM2 (diabetes mellitus, type 2) Current Visit: Yes Status: Acute Comment: New diagnosis with HbA1c of 14.6% . Will continue metformin 500mg BID (will need to be increased to 1000mg BID) and glipizide 10mg BID. Pt is motivated to work on diet and exercise though I have expressed my concerns that she may not be completely successful in achieving goal A1c. Continue lantus while in the hospital but the patient will not use insulin after discharge. (4) HTN (hypertension) Current Visit: Yes Status: Acute Code(s): I10 - ESSENTIAL (PRIMARY) HYPERTENSION SNOMED Code(s): 37369068 Comment: Also new diagnosis, will add lisinopril to amlodipine and metoprolol given dx of diabetes as BP is not at goal. (5) DVT prophylaxis Current Visit: Yes Status: Acute Code(s): QRT4518 - SNOMED Code(s): 605743893 Comment: SQ heparin (6) Full code status Current Visit: Yes Status: Acute Code(s): Z78.9 - OTHER SPECIFIED HEALTH STATUS SNOMED Code(s): 727054201 Status and Disposition: .
[2017-11-03] MEDS: Clindamycin 600 MG IVPREMIX(* 600 MG/50 ML SDV IV SCH ×3 (02:22→17:45)
[2017-11-03] MEDS: oxyCODONE/Acetamin 5/325 MG* TAB PO PRN ×5 (04:07→20:46)
[2017-11-03] MEDS: Heparin VIAL(*) 5000 UNITS/ML VIAL (FIVE THOUSAND) SUBCUT SCH ×3 (06:05→22:56)
[2017-11-03 07:01] LABS: Hematocrit 31 % (35-47); Hemoglobin 10.3 g/dl (12.0-16.0); Mean Corpuscular HGB Conc 34 g/dl (31-36); Mean Corpuscular Hemoglobin 29 pg (27-31); Mean Corpuscular Volume 87 fL (80-97); Mean Platelet Volume 8.7 um3 (7.4-10.4); Platelet Count 391 10^3/ul (150-450); Red Blood Count 3.52 10^6/ul (4.0-5.4); Red Cell Distribution Width 14 % (10.5-15); White Blood Count 11.5 10^3/ul (3.5-10.8)
[2017-11-03 07:21] LABS: EGFR Non-African American 85.5 (>60)
[2017-11-03] MEDS: Insulin LISPRO* 1 UNITS UNIT SUBCUT SCH ×4 (07:29→20:40)
[2017-11-03] MEDS: Insulin GLARGINE(*) 1 UNITS UNIT SUBCUT SCH (08:24)
[2017-11-03] MEDS: metFORMIN* 500 MG TAB PO SCH ×2 (08:25→16:32)
[2017-11-03] MEDS: glipiZIDE TAB* 5 MG PO SCH ×2 (08:25→16:32)
[2017-11-03] MEDS: Lisinopril TAB* 5 MG PO SCH (08:25)
[2017-11-03] MEDS: Metoprolol Tartrate TAB* 25 MG PO SCH ×2 (08:25→20:47)
[2017-11-03] MEDS: Nystatin TOP POWDER* 15 GM BTL TOPICAL SCH ×2 (08:25→22:48)
--- NOTE | 2017-11-03 09:56 | PN ---
Subjective Date of Service: 11/03/17 Interval History: Pt is feeling well. She continues to have fluctuating pain in the L ankle- it fluctuates with the administration of the pain medication, overall however the pain is improved. Objective Active Medications: Acetaminophen (Tylenol Tab*) 650 mg PO Q4H PRN PRN Reason: FEVER/PAIN Last Admin: 10/31/17 22:12 Dose: 650 mg Amlodipine Besylate (Norvasc Tab*) 10 mg PO DAILY@1400 [facility] Last Admin: 11/02/17 14:06 Dose: 10 mg Dextrose (D50w Syringe 50 Ml*) 12.5 gm IV PUSH .FOR FS < 60 - SS PRN PRN Reason: FS < 60 Glipizide (Glucotrol Tab*) 10 mg PO BID AC [facility] Last Admin: 11/03/17 08:25 Dose: 10 mg Heparin Sodium (Porcine) (Heparin Vial(*)) 5,000 units SUBCUT Q8HR [facility] Last Admin: 11/03/17 06:05 Dose: 5,000 units Clindamycin HCl/Dextrose (Cleocin 600 Mg Ivpremix(*) Sdv) 600 mg in 50 mls @ 100 mls/hr IV Q8H [facility] Last Admin: 11/03/17 02:22 Dose: 100 mls/hr Insulin Glargine (Lantus(*)) 20 units SUBCUT Q24H [facility] Last Admin: 11/03/17 08:24 Dose: 20 units Insulin Human Lispro (Humalog*) 0 units SUBCUT ACHS [facility] PRN Reason: Protocol Last Admin: 11/03/17 07:29 Dose: Not Given Lisinopril (Prinivil Tab*) 5 mg PO DAILY [facility] Last Admin: 11/03/17 08:25 Dose: 5 mg Metformin HCl (Glucophage*) 500 mg PO 0800,1700 [facility] Last Admin: 11/03/17 08:25 Dose: 500 mg Metoprolol Tartrate (Lopressor Tab*) 50 mg PO BID [facility] Last Admin: 11/03/17 08:25 Dose: 50 mg Nystatin (Nystatin Top Powder*) 1 applic TOPICAL BID [facility] Last Admin: 11/03/17 08:25 Dose: 1 applic Oxycodone/Acetaminophen (Percocet 5/325 Tab*) 1 tab PO Q4H PRN PRN Reason: Pain Last Admin: 11/03/17 08:24 Dose: 1 tab Vital Signs - 8 hr 11/03/17 11/03/17 11/03/17 02:43 03:18 04:07 Temperature 97.8 F Pulse Rate 73 Respiratory 16 18 17 Rate Blood Pressure 137/68 (mmHg) O2 Sat by Pulse 97 Oximetry 11/03/17 11/03/17 11/03/17 06:49 07:49 08:00 Temperature 97.7 F Pulse Rate 76 Respiratory 16 18 18 Rate Blood Pressure 165/85 (mmHg) O2 Sat by Pulse 98 Oximetry 11/03/17 08:24 Temperature Pulse Rate Respiratory 18 Rate Blood Pressure (mmHg) O2 Sat by Pulse Oximetry Oxygen Devices in Use Now: None Appearance: Middle aged female sitting up in bed, NAD Eyes: No Scleral Icterus Ears/Nose/Mouth/Throat: Mucous Membranes Moist Respiratory: Symmetrical Chest Expansion and Respiratory Effort, Clear to Auscultation Cardiovascular: NL Sounds; No Murmurs; No JVD, RRR, - - no edema of R LE, moderate edema Abdominal: NL Sounds; No Tenderness; No Distention Extremities: No Clubbing, Cyanosis Skin: - - slightly decreased erythema at the superior aspect of the cellulitis ( appears to be receeding some from the line marked previously), in removing the dressing from the medial ankle, a copious amount of pinkish pus poured out, the roof of the blister has also been torn off Neurological: Alert and Oriented x 3 Result Diagrams: 11/03/17 06:43 11/03/17 06:43 Microbiology and Other Data: Microbiology 10/30/17 21:24 Aerobic Blood Culture - Preliminary Blood Venous No Growth Day 1 Anaerobic Blood Culture - Preliminary No Growth Day 1 Assess/Plan/Problems-Billing Ms Butcher is a 56 yo F with no medical care since age of 19 who presented to the ER with now with left leg cellulitis. - Patient Problems (1) Cellulitis and abscess of left leg Current Visit: Yes Status: Acute Code(s): L03.116 - CELLULITIS OF LEFT LOWER LIMB; L02.416 - CUTANEOUS ABSCESS OF LEFT LOWER LIMB SNOMED Code(s): 580815445 Comment: Will get ultrasound of L LE to eval for deeper abscess collection given the copious amount of pus coming from the leg currently. Will continue clindamycin. Wound consult Sunday as the roof of the blister has essentially been torn off. (2) Sepsis Current Visit: Yes Status: Acute Comment: The patient was septic by sepsis 2 criteria on admisson with leukocytosis/bandemia and tachycardia. Sepsis has now resolved. (3) DM2 (diabetes mellitus, type 2) Current Visit: Yes Status: Acute Comment: Blood sugars look good for the last 3 reads. Continue metformin 500mg BID, glipizide 10mg BID and lantus for now. She does not want to use insulin at home. (4) HTN (hypertension) Current Visit: Yes Status: Acute Code(s): I10 - ESSENTIAL (PRIMARY) HYPERTENSION SNOMED Code(s): 46557522 Comment: BP still elevated. Increase lisinopril to 10mg daily. Continue metoprolol and amlodipine at current doses. (5) DVT prophylaxis Current Visit: Yes Status: Acute Code(s): ANR6364 - SNOMED Code(s): 657648681 Comment: SQ heparin (6) Full code status Current Visit: Yes Status: Acute Code(s): Z78.9 - OTHER SPECIFIED HEALTH STATUS SNOMED Code(s): 652029814 Status and Disposition: .
[2017-11-03] MEDS: amLODIPine TAB* 5 MG PO SCH (14:13)
--- NOTE | 2017-11-03 21:45 | RAD ---
Indication: Evaluate for abscess of left lower leg. Real-time sonography of the calf was performed. In the medial ankle there is a collection measuring 9.6 x 6.6 x 1.3 cm. Additional distal calf collection measuring 5.2 x 5.4 x 1.3 cm. There is echogenic material consistent with abscess collection. IMPRESSION: Multiloculated collection in the distal calf and ankle as described above which is consistent with abscess collection.
[2017-11-04] MEDS: Clindamycin 600 MG IVPREMIX(* 600 MG/50 ML SDV IV SCH ×3 (03:01→17:21)
[2017-11-04] MEDS: oxyCODONE/Acetamin 5/325 MG* TAB PO PRN ×4 (03:21→21:57)
[2017-11-04] MEDS: Heparin VIAL(*) 5000 UNITS/ML VIAL (FIVE THOUSAND) SUBCUT SCH ×3 (05:27→21:55)
[2017-11-04] MEDS: Insulin LISPRO* 1 UNITS UNIT SUBCUT SCH ×4 (07:45→21:57)
[2017-11-04] MEDS: Metoprolol Tartrate TAB* 25 MG PO SCH ×2 (07:53→21:58)
[2017-11-04] MEDS: glipiZIDE TAB* 5 MG PO SCH ×2 (07:59→17:08)
[2017-11-04] MEDS: metFORMIN* 500 MG TAB PO SCH ×2 (08:01→17:08)
[2017-11-04] MEDS ORDERED: Lisinopril TAB* 5 MG PO SCH (09:00)
[2017-11-04] MEDS ORDERED: Insulin GLARGINE(*) 1 UNITS UNIT SUBCUT SCH (09:00)
[2017-11-04] MEDS: Nystatin TOP POWDER* 15 GM BTL TOPICAL SCH ×2 (10:12→21:58)
[2017-11-04] MEDS: amLODIPine TAB* 5 MG PO SCH (12:51)
--- NOTE | 2017-11-04 13:57 | PN ---
Subjective Date of Service: 11/04/17 Interval History: Pt is feeling ok. She continues to have significant discomfort in the posterior L calf and ankle. She is not able to flex or extend the ankle but not necessarily due to pain. She has had 2 mushy BMs today. Objective Active Medications: Acetaminophen (Tylenol Tab*) 650 mg PO Q4H PRN PRN Reason: FEVER/PAIN Last Admin: 10/31/17 22:12 Dose: 650 mg Amlodipine Besylate (Norvasc Tab*) 10 mg PO DAILY@1400 [facility] Last Admin: 11/04/17 12:51 Dose: 10 mg Dextrose (D50w Syringe 50 Ml*) 12.5 gm IV PUSH .FOR FS < 60 - SS PRN PRN Reason: FS < 60 Glipizide (Glucotrol Tab*) 10 mg PO BID AC [facility] Last Admin: 11/04/17 07:59 Dose: Not Given Heparin Sodium (Porcine) (Heparin Vial(*)) 5,000 units SUBCUT Q8HR [facility] Last Admin: 11/04/17 12:51 Dose: 5,000 units Clindamycin HCl/Dextrose (Cleocin 600 Mg Ivpremix(*) Sdv) 600 mg in 50 mls @ 100 mls/hr IV Q8H [facility] Last Admin: 11/04/17 10:12 Dose: 100 mls/hr Insulin Glargine (Lantus(*)) 15 units SUBCUT Q24H [facility] Last Admin: 11/04/17 10:12 Dose: 15 units Insulin Human Lispro (Humalog*) 0 units SUBCUT ACHS [facility] PRN Reason: Protocol Last Admin: 11/04/17 12:50 Dose: 1 units Lisinopril (Prinivil Tab*) 10 mg PO DAILY [facility] Last Admin: 11/04/17 07:53 Dose: 10 mg Metformin HCl (Glucophage*) 500 mg PO 0800,1700 [facility] Last Admin: 11/04/17 08:01 Dose: 500 mg Metoprolol Tartrate (Lopressor Tab*) 50 mg PO BID [facility] Last Admin: 11/04/17 07:53 Dose: 50 mg Nystatin (Nystatin Top Powder*) 1 applic TOPICAL BID [facility] Last Admin: 11/04/17 10:12 Dose: 1 applic Oxycodone/Acetaminophen (Percocet 5/325 Tab*) 1 tab PO Q4H PRN PRN Reason: Pain Last Admin: 11/04/17 12:51 Dose: 1 tab Vital Signs - 8 hr 11/04/17 11/04/17 11/04/17 05:54 07:29 07:53 Temperature 97.6 F Pulse Rate 76 Respiratory 18 16 18 Rate Blood Pressure 168/77 (mmHg) O2 Sat by Pulse 97 Oximetry 11/04/17 11/04/17 11/04/17 08:00 10:12 12:04 Temperature 97.8 F Pulse Rate 72 Respiratory 18 18 17 Rate Blood Pressure 153/73 (mmHg) O2 Sat by Pulse 97 Oximetry 11/04/17 12:51 Temperature Pulse Rate Respiratory 18 Rate Blood Pressure (mmHg) O2 Sat by Pulse Oximetry Oxygen Devices in Use Now: None Appearance: Middle aged female sitting up in bed, NAD Eyes: No Scleral Icterus Ears/Nose/Mouth/Throat: Mucous Membranes Moist Respiratory: Symmetrical Chest Expansion and Respiratory Effort, Clear to Auscultation Cardiovascular: NL Sounds; No Murmurs; No JVD, RRR, - - no edema of R LE Abdominal: NL Sounds; No Tenderness; No Distention Extremities: No Clubbing, Cyanosis Skin: - - continued erythema of the L lower leg/ankle; fluctuance noted overlying L medial malleolus, smaller fluctuant collection posterior L calf Neurological: Alert and Oriented x 3 Result Diagrams: 11/03/17 06:43 11/03/17 06:43 Microbiology and Other Data: Microbiology 10/30/17 21:24 Aerobic Blood Culture - Preliminary Blood Venous No Growth Day 1 Anaerobic Blood Culture - Preliminary No Growth Day 1 Assess/Plan/Problems-Billing Ms Butcher is a 56 yo F with no medical care since age of 19 who presented to the ER with now with left leg cellulitis. - Patient Problems (1) Cellulitis and abscess of left leg Current Visit: Yes Status: Acute Code(s): L03.116 - CELLULITIS OF LEFT LOWER LIMB; L02.416 - CUTANEOUS ABSCESS OF LEFT LOWER LIMB SNOMED Code(s): 229235180 Comment: Ultrasound of lower L leg does reveal abscess overlying medial L ankle and posterior calf. Continue clindamycin. Orthopedics vs general surgery consult for drainage of abscess collections. ? MRI ankle to eval for septic joint vs tenosynovitis. Repeat labs tomorrow including CRP. (2) Sepsis Current Visit: Yes Status: Acute Comment: The patient was septic by sepsis 2 criteria on admisson with leukocytosis/bandemia and tachycardia. Sepsis has now resolved. (3) DM2 (diabetes mellitus, type 2) Current Visit: Yes Status: Acute Comment: Blood sugars remain under decent control. Will reduce lantus further to 10 units SQ daily. Continue metformin and glipizide. Follow blood sugars. (4) HTN (hypertension) Current Visit: Yes Status: Acute Code(s): I10 - ESSENTIAL (PRIMARY) HYPERTENSION SNOMED Code(s): 80012734 Comment: BP still elevated. Increase lisinopril to 20mg daily. Continue metoprolol and amlodipine at current doses. (5) DVT prophylaxis Current Visit: Yes Status: Acute Code(s): [id number] - SNOMED Code(s): 595376023 Comment: SQ heparin (6) Full code status Current Visit: Yes Status: Acute Code(s): Z78.9 - OTHER SPECIFIED HEALTH STATUS SNOMED Code(s): 777122815 Status and Disposition: .
[2017-11-04] MEDS ORDERED: Gadoteridol* (CONTRAST) 279.3 MG/ML 10 ML IV ONE (16:09)
--- NOTE | 2017-11-04 17:18 | RAD ---
Indication: Septic ankle. Sagittal T1, STIR, coronal T1, STIR, axial T1 and STIR images were obtained. 20 mL of ProHance was injected and axial sagittal and coronal postcontrast images were obtained. There is multiloculated fluid collection in the posterior and medial aspect of the distal calf and ankle. This measures at least 12 cm in length x 6.7 cm in AP dimension x 5.7 cm in width. This is located predominantly in the subcutaneous tissue although an area of fluid surrounds the Achilles tendon. The ankle joint demonstrates no evidence of fluid or abnormal soft tissue swelling. IMPRESSION: Multiloculated fluid collection appears to be within the soft tissues of the knee medial posterior ankle although fluid also surrounds the Achilles tendon. No extension into the joint space is noted. No bone marrow edema or fluid in the joint space is noted.
[2017-11-04] MEDS: Morphine VIAL* 4 MG/ML VIAL (1 ml vial) IV PRN (17:22)
--- NOTE | 2017-11-04 18:30 | CONS ---
CONSULTATION REPORT: DATE OF CONSULT: 11/04/17 REASON FOR CONSULT: Left lower leg abscesses. HISTORY OF PRESENT ILLNESS: The patient is a 56-year-old woman, a [employer], whom had not seen a physician in 37 years until this current hospital admission. The patient was admitted to the hospitalist service on 10/30/17 with left lower extremity erythema and edema consistent with cellulitis, meeting sepsis criteria , with possible abscess. The patient was also diagnosed with hyperglycemia and hypertension. The patient's blood glucose has been controlled, Dr. Parada was consulted by telephone on 10/30/17. The patient had CT scan, eventually had ultrasound study done late yesterday. Hospitalist service found out today that the ultrasound diagnosed multiple abscesses and I was consulted at approximately 2 p.m. on 11/04/17 for abscesses in the left lower leg. The patient had just eaten a meal at 1 p.m., 1 hour previously. The patient's recent history, as described in detail to hospitalist attending, involved erythema development about the left lower leg approximately 2-1/2 weeks ago. One day, she was feeling lightheaded and dizzy. She went to her basement to do laundry and fell about the bottom step. She thought she might have sprained her ankle. She denied that there was any open wound, bleeding, or sores immediately. However, soon thereafter, she developed some erythema of the left toes. That erythema spread about the left ankle area and the lower leg. She noted stiffness in that left ankle and the patient reports that she has had left ankle stiffness similar to now for 2-1/2 weeks. For the last 2-1/2 weeks, she has had no fevers or chills. No nausea, vomiting , diarrhea, or abdominal pain. She had had some urinary incontinence and urinary frequency. The patient was initially seen in Urgent Care on 10/30/17. She was referred to the emergency room. In the emergency room, there was an attempt to franchesca an area of erythema about the ankle or lower leg. No fluid was obtained. The patient has been managed by the hospitalist service for the last 5 days. The patient was started on vancomycin. There was mention of consulting Orthopedics on the morning of 10/31/17. I do not know if one of my partners was consulted, but I have not been consulted and I have been on-call on through 11/04/17. The patient's hyperglycemia has been managed with Lantus and lispro sliding scale and the patient has been receiving antihypertensives. The patient was seen by Dr. Parada on 10/31/17. His note includes diagnosis of left lower extremity cellulitis likely secondary to group A streptococcus. He recommended stopping vancomycin and starting clindamycin and to follow physical exams of the lower leg. He mentioned if improvement did not occur that consideration of a septic joint should be made. Dr. Parada's note does indicate the patient had some fevers and chills at home just prior to her presentation on 10/30/17. She had a temperature of 38 degrees Fahrenheit on her first night in the hospital. On Dr. Parada's exam, she had some bullae on the left lower leg. Dr. Parada also saw the patient on 11/01/17. He noted improvement of the patient's cellulitis by exam. The patient corroborates this. The patient had had a CT exam, which was performed on 10/30/17 of the lower leg. That diagnosed the patient with cellulitis. However, there was localized fluid along the medial, posterior, distal lower leg and about the medial malleolus mentioned. However, the impression is of no abscess at the time. Ultrasound was ordered yesterday and indicated that there are multiple fluid collections consistent with abscesses. Orthopedic Surgery consult was called. PAST MEDICAL HISTORY: Obesity, diabetes mellitus; both diagnosed during this hospitalization. PAST SURGICAL HISTORY: None. MEDICATIONS: None as an outpatient prior to this hospitalization. Currently, the patient is receivin. Tylenol as needed. 2. Amlodipine. 3. Clindamycin IV. 4. Glipizide. 5. Heparin 5000 units subcu t.i.d. 6. Lantus. 7. Lispro. 8. Lisinopril. 9. Metformin. 10. Metoprolol. 11. Nystatin. 12. Percocet p.r.n. ALLERGIES: SHELLFISH. REVIEW OF SYSTEMS: The patient denies current nausea or vomiting. Headache. The patient denies numbness or tingling bilateral feet. The patient describes stiffness of left ankle for 2-1/2 weeks and some pain and tenderness of the left lower leg. PHYSICAL EXAM: Vitals: On 11/04/17 at 12:04 p.m., temperature 97.8 degrees Fahrenheit, heart rate 72, blood pressure 153/73, respiratory rate 17, and O2 saturation is 97% on room air. No acute distress. Alert and oriented. The patient is lying in supine in her hospital bed with her left ankle elevated on a pillow. Sensation intact to light touch in the foot and toes. The patient has a small area of several millimeters of skin defect about the skin overlying the medial malleolus. With some manipulation in that location, the patient had ludmila pus oozing out of the skin hole. The patient had tenderness to palpation in that area as well as more posteromedial and proximal still about the distal aspect of the lower leg. The patient has erythema that extends almost to the level of the knee. The patient's passive range of motion of the left ankle was approximately 3 to 20 degrees of flexion without any pain within that range of motion and with more stiffness than pain at the terminal ranges of that range of motion. The patient stated this was unchanged range of motion from the past 2.5 weeks. I limited my exam somewhat to minimize exposure to bacteria given impending surgeries later in the afternoon for me. DIAGNOSTIC STUDIES/LAB DATA: White blood cell count now down to 11.5 on . Neutrophil percentage last measured on 11/01/17 and is at 79.3%. ESR 113 on 10/30/17. Blood glucose most recently 143. UA on 10/30/17 positive for urinary tract infection, although urinary culture showing mixed lele consistent with possible contamination. By report, hemoglobin A1c was very elevated. Indeed, I see that it was 14.6 on 10/30/17. Imaging: Ultrasound report from 11/03/17 was reviewed by me. It details that about the medial left ankle, there is a collection measuring 9.6 x 6.6 x 1.3 cm. Also about the distal calf, a separate collection of fluid measuring 5.2 x 5.4 x 1.3 cm consistent with abscesses. CT scan report from 10/30/17 reviewed. Results of it were detailed above in the history section. ASSESSMENT: 1. Left lower leg abscesses, at least 2 with overlying cellulitis. 2. Uncontrolled diabetes with hemoglobin A1c of 14.6. 3. Possible, though less likely left ankle joint infection. PLAN: 1. The patient has not yet had an MRI scan of the left lower leg. I see the MRI is being much more vital for diagnosis as well as for preoperative planning than the ultrasound or CT scan. I recommended an MRI to confirm the diagnosis and to help with preoperative planning. 2. The patient needs an incision, irrigation and debridement of abscess or abscesses, left lower leg. I would have preferred to do the operation this afternoon but the patient ate just recently at 1 p.m. Therefore, surgical management would have to wait until 9 p.m. tonight. For that reason, we will delay surgery until at least tomorrow given the best use of hospital resources. 3. While there is a possibility of an ankle joint infection, especially given the closed proximity of that skin break with purulence compared to the tibiotalar joint, the patient did not have pain with passive range of motion of the ankle within a limited range of motion and describes that to be essentially unchanged for the last 2.5 weeks. The MRI will provide some more clarity as to the possible involvement of the ankle joint in the infection. 4. I told the patient to remain NPO just in case the MRI indicates high likelihood of ankle joint infection in which case we would consider doing an incision, irrigation, and debridement this afternoon or night despite the patient's NPO status. 5. Continue IV antibiotics. 6. I anticipate that the most likely scenario is that the patient will undergo an incision, irrigation, and debridement of abscesses, left lower leg, on either by myself in the late afternoon or by one of my partners earlier in the day. [id number]/[facility] #: [id number] WILLIAM
[2017-11-05] MEDS: Morphine VIAL* 4 MG/ML VIAL (1 ml vial) IV PRN ×3 (01:41→11:02)
[2017-11-05] MEDS: Clindamycin 600 MG IVPREMIX(* 600 MG/50 ML SDV IV SCH ×3 (01:41→18:45)
[2017-11-05] MEDS: Heparin VIAL(*) 5000 UNITS/ML VIAL (FIVE THOUSAND) SUBCUT SCH ×3 (06:16→22:19)
[2017-11-05 06:25] LABS: EGFR Non-African American 88.3 (>60)
[2017-11-05 07:16] LABS: Hematocrit 34 % (35-47); Hemoglobin 11.6 g/dl (12.0-16.0); Mean Corpuscular HGB Conc 34 g/dl (31-36); Mean Corpuscular Hemoglobin 29 pg (27-31); Mean Corpuscular Volume 87 fL (80-97); Red Blood Count 3.93 10^6/ul (4.0-5.4); Red Cell Distribution Width 14 % (10.5-15)
[2017-11-05 07:17] LABS: Mean Platelet Volume 9.8 um3 (7.4-10.4); Platelet Count 420 10^3/ul (150-450); White Blood Count 16.2 10^3/ul (3.5-10.8)
[2017-11-05 07:21] LABS: Monocytes % 11 % (0-7)
[2017-11-05] MEDS: glipiZIDE TAB* 5 MG PO SCH ×2 (08:12→17:02)
[2017-11-05] MEDS: metFORMIN* 500 MG TAB PO SCH ×2 (08:12→17:02)
[2017-11-05] MEDS: Metoprolol Tartrate TAB* 25 MG PO SCH ×2 (08:53→22:18)
[2017-11-05] MEDS: Insulin LISPRO* 1 UNITS UNIT SUBCUT SCH ×4 (08:55→22:18)
[2017-11-05] MEDS ORDERED: Lisinopril TAB* 5 MG PO SCH (09:00)
[2017-11-05] MEDS ORDERED: Insulin GLARGINE(*) 1 UNITS UNIT SUBCUT SCH (09:00)
--- NOTE | 2017-11-05 09:08 | PN ---
Progress Note - Progress Note Date of Service: 11/05/17 SOAP: Subjective: 56 y/o female with cellulitis, abscess L lower leg. Discussed surgery with patient who was aware and willing for OR today, explained I&D and possible closure vs Vac vs packing as well as MRI results. Objective: General- well appearing, resting in bed comfortably MSK- DRessing removed, multiple open areas over medial, posterior ankle with purulent/ bloody drainage, + erythema, improved from previous marked region. Vital Signs Temp 98.1 F 11/05/17 08:11 Pulse 79 11/05/17 08:11 Resp 18 11/05/17 11:02 BP 162/81 11/05/17 08:11 Pulse Ox 97 11/05/17 08:11 Intake & Output 11/04/17 11/05/17 11/05/17 18:59 06:59 18:59 Intake Total 1270 70 Output Total 0 Balance 1270 70 Weight 103.555 kg Intake: IV Fluids 70 ABX - CLINDAMYCIN 50 NS (0.9%) 20 IVPB 50 ABX - CLINDAMYCIN 50 Oral 1220 0 Output: Urine 0 Other: Estimated Void Medium Large Date of Last Bowel 11/04/2017 Movement # Bowel Movements 0 # Voids 3 1 Assessment: 56 y/o female with cellulitis, abscess L lower leg. Plan: - Or today w Dr. Alfonso for I&D L LE. - MRI- multiloculated fluid collection L posterior ankle, no osteo seen. - NPO since MN - DVT proph- Heparin Held - ABX- clindamycin Active Medications Generic Name Dose Route Start Last Admin Trade Name Adriel PRN Reason Stop Dose Admin Acetaminophen 650 mg 10/30/17 19:59 10/31/17 22:12 Tylenol Tab* PO 650 mg Q4H PRN Administration FEVER/PAIN Amlodipine Besylate 10 mg 10/31/17 14:00 11/04/17 12:51 Norvasc Tab* PO 10 mg DAILY@1400 SIOBHAN Administration Dextrose 12.5 gm 10/30/17 20:13 D50w Syringe 50 Ml* IV PUSH .FOR FS < 60 - SS PRN FS < 60 Glipizide 10 mg 11/01/17 11:58 11/05/17 08:12 Glucotrol Tab* PO Not Given BID AC [facility] Heparin Sodium (Porcine) 5,000 units 10/30/17 22:00 11/05/17 06:16 Heparin Vial(*) SUBCUT Not Given Q8HR [facility] Clindamycin HCl/Dextrose 600 mg in 50 mls @ 100 mls/hr 10/31/17 10:00 10:29 Cleocin 600 Mg Ivpremix(*) Sdv IV 100 mls/hr Q8H SIOBHAN Administration Insulin Glargine 10 units 11/05/17 09:00 11/05/17 08:53 Lantus(*) SUBCUT 10 units Q24H SIOBHAN Administration Insulin Human Lispro 0 units 11/01/17 16:30 11/05/17 08:55 Humalog* SUBCUT 2 units ACHS SIOBHAN Administration Protocol Lisinopril 20 mg 11/05/17 09:00 11/05/17 08:52 Prinivil Tab* PO 20 mg DAILY SIOBHAN Administration Metformin HCl 500 mg 11/02/17 09:00 11/05/17 08:12 Glucophage* PO Not Given 0800,1700 [facility] Metoprolol Tartrate 50 mg 11/01/17 08:36 11/05/17 08:53 Lopressor Tab* PO 50 mg BID SIOBHAN Administration Morphine Sulfate 4 mg 11/04/17 17:03 11/05/17 11:02 Morphine Vial* IV 4 mg Q4H PRN Administration PAIN Nystatin 1 applic 10/31/17 03:40 11/05/17 10:29 Nystatin Top Powder* TOPICAL 1 applic BID SIOBHAN Administration Oxycodone/Acetaminophen 1 tab 10/30/17 19:59 11/04/17 21:57 Percocet 5/325 Tab* PO 1 tab Q4H PRN Administration Pain
[2017-11-05] MEDS: Nystatin TOP POWDER* 15 GM BTL TOPICAL SCH ×2 (10:29→23:19)
--- NOTE | 2017-11-05 11:36 | PN ---
Subjective Date of Service: 11/05/17 Interval History: Pt feels well. C/o pain in left heel Objective Active Medications: Acetaminophen (Tylenol Tab*) 650 mg PO Q4H PRN PRN Reason: FEVER/PAIN Last Admin: 10/31/17 22:12 Dose: 650 mg Amlodipine Besylate (Norvasc Tab*) 10 mg PO DAILY@1400 [facility] Last Admin: 11/04/17 12:51 Dose: 10 mg Dextrose (D50w Syringe 50 Ml*) 12.5 gm IV PUSH .FOR FS < 60 - SS PRN PRN Reason: FS < 60 Glipizide (Glucotrol Tab*) 10 mg PO BID AC [facility] Last Admin: 11/05/17 08:12 Dose: Not Given Heparin Sodium (Porcine) (Heparin Vial(*)) 5,000 units SUBCUT Q8HR [facility] Last Admin: 11/05/17 06:16 Dose: Not Given Clindamycin HCl/Dextrose (Cleocin 600 Mg Ivpremix(*) Sdv) 600 mg in 50 mls @ 100 mls/hr IV Q8H [facility] Last Admin: 11/05/17 10:29 Dose: 100 mls/hr Insulin Glargine (Lantus(*)) 10 units SUBCUT Q24H [facility] Last Admin: 11/05/17 08:53 Dose: 10 units Insulin Human Lispro (Humalog*) 0 units SUBCUT ACHS [facility] PRN Reason: Protocol Last Admin: 11/05/17 08:55 Dose: 2 units Lisinopril (Prinivil Tab*) 20 mg PO DAILY [facility] Last Admin: 11/05/17 08:52 Dose: 20 mg Metformin HCl (Glucophage*) 500 mg PO 0800,1700 [facility] Last Admin: 11/05/17 08:12 Dose: Not Given Metoprolol Tartrate (Lopressor Tab*) 50 mg PO BID [facility] Last Admin: 11/05/17 08:53 Dose: 50 mg Morphine Sulfate (Morphine Vial*) 4 mg IV Q4H PRN PRN Reason: PAIN Last Admin: 11/05/17 11:02 Dose: 4 mg Nystatin (Nystatin Top Powder*) 1 applic TOPICAL BID [facility] Last Admin: 11/05/17 10:29 Dose: 1 applic Oxycodone/Acetaminophen (Percocet 5/325 Tab*) 1 tab PO Q4H PRN PRN Reason: Pain Last Admin: 11/04/17 21:57 Dose: 1 tab Vital Signs - 8 hr 11/05/17 11/05/17 11/05/17 05:53 08:11 11:02 Temperature 98.1 F Pulse Rate 79 Respiratory 14 16 18 Rate Blood Pressure 162/81 (mmHg) O2 Sat by Pulse 97 Oximetry Oxygen Devices in Use Now: None Appearance: 56 yo F in nAD, AAOx3 Eyes: No Scleral Icterus, PERRLA Ears/Nose/Mouth/Throat: NL Teeth, Lips, Gums, Mucous Membranes Moist Neck: NL Appearance and Movements; NL JVP, Trachea Midline Respiratory: Symmetrical Chest Expansion and Respiratory Effort, Clear to Auscultation Cardiovascular: NL Sounds; No Murmurs; No JVD, RRR Abdominal: NL Sounds; No Tenderness; No Distention Lymphatic: No Cervical Adenopathy Extremities: No Clubbing, Cyanosis, - - left ankle edema and cellulitis improving. Copious amounts of purulent discharge from left medial malleolus area noted Skin: No Nodules or Sclerosis Neurological: Alert and Oriented x 3, NL Muscle Strength and Tone Result Diagrams: 11/05/17 05:44 11/05/17 06:53 Microbiology and Other Data: Microbiology 10/30/17 21:24 Aerobic Blood Culture - Preliminary Blood Venous No Growth Day 1 Anaerobic Blood Culture - Preliminary No Growth Day 1 Assess/Plan/Problems-Billing Ms Butcher is a 56 yo F with no medical care since age of 19 who presented to the ER with now with left leg cellulitis. - Patient Problems (1) Cellulitis and abscess of left leg Comment: Ultrasound of lower L leg does reveal abscess overlying medial L ankle and posterior calf. Continue clindamycin. will take pt to OR for drainage of abscess today. MRI ankle negative for osteo. (2) HTN (hypertension) Comment: BP still elevated. Increased 20mg yesterday. Continue metoprolol and amlodipine at current doses. (3) DM2 (diabetes mellitus, type 2) Comment: Blood sugars remain under decent control. cont 10 units SQ daily. Continue metformin and glipizide. Follow blood sugars. (4) Hyponatremia Comment: spurious , due to high sugars (5) DVT prophylaxis Comment: SQ heparin Status and Disposition: .Inpatient
[2017-11-05] MEDS ORDERED: fentaNYL* 50 MCG/ML 2 ML VIAL (100 MCG VIAL) ONE (13:16)
[2017-11-05] MEDS ORDERED: Midazolam* 1 MG/ML 5 ML VIAL (5 MG) ONE (13:16)
[2017-11-05] MEDS ORDERED: Bupivacaine 0.25% SDV* 30 ML ONE (13:49)
[2017-11-05] MEDS ORDERED: PROCHLORPERAZINE INJ 5 MG/ML 2 ML VIAL ONE (14:22)
[2017-11-05] MEDS ORDERED: Ondansetron INJ* 2 MG/ML VIAL ONE (14:22)
[2017-11-05] MEDS ORDERED: hydrALAZINE IV* 20 MG/ML VIAL ONE (14:22)
[2017-11-05] MEDS ORDERED: Propofol* 10 MG/ML 20 ML BTL IV PUSH ONE (14:22)
[2017-11-05] MEDS ORDERED: Morphine INJ* 2 MG/ML 1 ML CARPUJECT IV PRN (14:27)
[2017-11-05] MEDS ORDERED: Naloxone* 0.4 MG/ML 1 ML VIAL IV PRN (14:27)
[2017-11-05] MEDS ORDERED: PROCHLORPERAZINE INJ 5 MG/ML 2 ML VIAL IV PRN (14:27)
[2017-11-05] MEDS ORDERED: DiMENhydriNATE IV* 50 MG/ML VIAL IV PUSH PRN (14:27)
[2017-11-05] MEDS ORDERED: oxyCODONE TAB* 5 MG TAB PO PRN (14:27)
[2017-11-05] MEDS ORDERED: Scopolamine 1.5 mg* PATCH TRANSDERM PRN (14:27)
[2017-11-05] MEDS ORDERED: Flumazenil* 0.1 MG/ML 5 ML MDV ONE (14:32)
[2017-11-05] MEDS ORDERED: fentaNYL* 50 MCG/ML 5 ML VIAL (250 MCG VIAL) ONE (14:43)
[2017-11-05] MEDS: fentaNYL* 50 MCG/ML 2 ML VIAL (100 MCG VIAL) IV PRN ×8 (14:46→15:50)
[2017-11-05] MEDS: oxyCODONE/Acetamin 5/325 MG* TAB PO PRN (16:54)
[2017-11-05] MEDS: amLODIPine TAB* 5 MG PO SCH (16:54)
[2017-11-05] MEDS: Acetaminophen TAB* 325 MG PO PRN (19:46)
--- NOTE | 2017-11-05 23:04 | OP ---
OPERATIVE REPORT: DATE OF OPERATION: 11/05/17 - Inpatient, room 414-01 DATE OF : 62 ATTENDING SURGEON: Jaxon Alfonso MD SNOW REMOVER: Bronwyn Li PA-C ANESTHESIOLOGIST: Simeon Nuenz MD ANESTHESIA: General. PRE-OP DIAGNOSES: Diabetic ulcer and abscess, left calf and medial hindfoot. POST-OP DIAGNOSES: Diabetic ulcer and abscess, left calf and medial hindfoot. OPERATIVE PROCEDURE: Debridement left calf and medial hindfoot packing, open. DESCRIPTION OF PROCEDURE: The patient was taken to the operating room where a tight tourniquet was applied. The patient had oozing free flowing pus from the medial calf area where there was a small ulcer with surrounding ecchymotic skin and then also at the medial hindfoot just below the malleolus. Both areas were connected easily with longitudinal incision which was probably at least 20 to 25 cm in length, 200 or 300 cc of grossly purulent material were obtained from the subcutaneous areas. There was some fat necrosis in the posterior flap at the calf, probably an area of 4 x 6 cm, was very thin, probably more or less denuded of any subcutaneous fat. Because of the infection, it may or may not viable going forward. A 3 L pulsatile lavage was performed of all these soft tissues. I could not detect any deep penetration into the ankle joint itself. I packed the wound open with dilute Betadine on a Kerlix sponge and then a compression dressing was applied. The plan will be re-exploration and debridement in a few days' time. [id number]/[facility] #: [id number] [facility]
[2017-11-06] MEDS: oxyCODONE/Acetamin 5/325 MG* TAB PO PRN ×6 (00:10→21:17)
[2017-11-06] MEDS: Clindamycin 600 MG IVPREMIX(* 600 MG/50 ML SDV IV SCH ×3 (02:38→17:13)
[2017-11-06] MEDS: Heparin VIAL(*) 5000 UNITS/ML VIAL (FIVE THOUSAND) SUBCUT SCH ×3 (04:14→20:41)
[2017-11-06 06:55] LABS: Hematocrit 33 % (35-47); Hemoglobin 10.9 g/dl (12.0-16.0); Mean Corpuscular HGB Conc 33 g/dl (31-36); Mean Corpuscular Hemoglobin 29 pg (27-31); Mean Corpuscular Volume 88 fL (80-97); Platelet Count 490 10^3/ul (150-450); Red Blood Count 3.78 10^6/ul (4.0-5.4); Red Cell Distribution Width 14 % (10.5-15); White Blood Count 11.5 10^3/ul (3.5-10.8)
[2017-11-06 07:14] LABS: EGFR Non-African American 86.9 (>60)
[2017-11-06] MEDS ORDERED: Lisinopril TAB* 10 MG PO SCH (07:42)
[2017-11-06 08:18] LABS: ABS Basophils 0.1 10^3/ul (0-0.2); ABS Eosinophils 0.4 10^3/ul (0-0.6); ABS Lymphocytes 2.4 10^3/ul (1.0-4.8); ABS Monocytes 0.8 10^3/ul (0-0.8); ABS Neutrophils 7.8 10^3/ul (1.5-7.7); ABS Nucleated RBC 0 10^3/ul; Eosinophil % 3.3 % (0-6); Nucleated Red Blood Cells % 0
[2017-11-06] MEDS: Metoprolol Tartrate TAB* 25 MG PO SCH ×2 (08:37→20:20)
[2017-11-06] MEDS: metFORMIN* 500 MG TAB PO SCH ×3 (08:37→17:12)
[2017-11-06] MEDS: Insulin LISPRO* 1 UNITS UNIT SUBCUT SCH ×4 (08:40→20:20)
[2017-11-06] MEDS: glipiZIDE TAB* 5 MG PO SCH ×2 (08:40→17:11)
[2017-11-06] MEDS: Nystatin TOP POWDER* 15 GM BTL TOPICAL SCH ×2 (08:43→20:22)
--- NOTE | 2017-11-06 10:50 | PN ---
Progress Note - Progress Note Date of Service: 11/06/13 SOAP: Subjective: Patient sitting in bed with minimal complaints of pain Objective: Vital Signs Temp Pulse Resp BP Pulse Ox 98.1 F 75 12 154/74 97 11/06/17 03:34 11/06/17 03:34 11/06/17 08:41 11/06/17 03:34 11/06/17 08:05 Laboratory Last Values WBC 11.5 10^3/ul (3.5-10.8) H 11/06/17 06:38 RBC 3.78 10^6/ul (4.0-5.4) L 11/06/17 06:38 Hgb 10.9 g/dl (12.0-16.0) L 11/06/17 06:38 Hct 33 % (35-47) L 11/06/17 06:38 MCV 88 fL (80-97) 11/06/17 06:38 MCH 29 pg (27-31) 11/06/17 06:38 MCHC 33 g/dl (31-36) 11/06/17 06:38 RDW 14 % (10.5-15) 11/06/17 06:38 Plt Count 490 10^3/ul (150-450) H D 11/06/17 06:38 MPV 8.0 um3 (7.4-10.4) 11/06/17 06:38 Neut % (Auto) 68.1 % (38-83) 11/06/17 06:38 Lymph % (Auto) 21.0 % (25-47) L 11/06/17 06:38 Creek % (Auto) 6.7 % (0-7) 11/06/17 06:38 Eos % (Auto) 3.3 % (0-6) 11/06/17 06:38 Baso % (Auto) 0.9 % (0-2) 11/06/17 06:38 Absolute Neuts (auto) 7.8 10^3/ul (1.5-7.7) H 11/06/17 06:38 Absolute Lymphs (auto) 2.4 10^3/ul (1.0-4.8) 11/06/17 06:38 Absolute Monos (auto) 0.8 10^3/ul (0-0.8) 11/06/17 06:38 Absolute Eos (auto) 0.4 10^3/ul (0-0.6) 11/06/17 06:38 Absolute Basos (auto) 0.1 10^3/ul (0-0.2) 11/06/17 06:38 Absolute Nucleated RBC 0 10^3/ul 11/06/17 06:38 Immature Gran % 4 % (0-9) 11/05/17 05:44 Neutrophils % 54 % (38-83) 11/05/17 05:44 Band Neutrophils % 2 % (0-8) 11/05/17 05:44 Lymphocytes % 30 % (25-47) 11/05/17 05:44 Monocytes % 11 % (0-7) H 11/05/17 05:44 Eosinophils % 1 % (0-6) 11/05/17 05:44 Basophils % 0 % (0-2) 11/05/17 05:44 Metamyelocytes % 1 % (0-2) 11/05/17 05:44 Myelocytes % 1 % (0-1) 11/05/17 05:44 Nucleated RBC % 0 11/06/17 06:38 Abs Neuts (Manual) 8.7 10^3/ul (1.5-7.7) H 11/05/17 05:44 Abs Lymphs (Manual) 4.9 10^3/ul (1.0-4.8) H 11/05/17 05:44 Abs Monocytes (Manual) 1.8 10^3/ul (0-0.8) H 11/05/17 05:44 Absolute Eos (Manual) 0.2 10^3/ul (0-0.6) 11/05/17 05:44 Abs Basophils (Manual) 0 10^3/ul (0-0.2) 11/05/17 05:44 Normal RBC Morphology Normal (Normal) 11/05/17 05:44 ESR 113 mm/Hr (0-30) H 10/30/17 16:18 Sodium 138 mmol/L (139-145) L 11/06/17 06:34 Potassium 3.9 mmol/L (3.5-5.0) 11/06/17 06:34 Chloride 101 mmol/L (101-111) 11/06/17 06:34 Carbon Dioxide 30 mmol/L (22-32) 11/06/17 06:34 Anion Gap 7 mmol/L (2-11) 11/06/17 06:34 BUN 8 mg/dL (6-24) 11/06/17 06:34 Creatinine 0.70 mg/dL (0.51-0.95) 11/06/17 06:34 Est GFR ( Amer) 111.7 (>60) 11/06/17 06:34 Est GFR (Non-Af Amer) 86.9 (>60) 11/06/17 06:34 BUN/Creatinine Ratio 11.4 (8-20) 11/06/17 06:34 Glucose 130 mg/dL (70-100) H 11/06/17 06:34 POC Glucose (mg/dL) 139 mg/dL (70-100) H 11/06/17 07:48 POC Glucose Confirm 454 mg/dL (70-100) H 10/31/17 07:53 Hemoglobin A1c 14.6 % (4.0-5.6) H 10/30/17 16:18 Lactic Acid 1.0 mmol/L (0.5-2.0) 10/30/17 16:18 Calcium 8.4 mg/dL (8.6-10.3) L 11/06/17 06:34 Total Bilirubin 0.60 mg/dL (0.2-1.0) 10/30/17 16:18 AST 21 U/L (13-39) 10/30/17 16:18 ALT 29 U/L (7-52) 10/30/17 16:18 Alkaline Phosphatase 123 U/L (34-104) H 10/30/17 16:18 C-Reactive Protein 48.27 mg/L (< 5.00) H 11/05/17 05:44 Total Protein 7.7 g/dL (6.4-8.9) 10/30/17 16:18 Albumin 2.9 g/dL (3.2-5.2) L 10/30/17 16:18 Globulin 4.8 g/dL (2-4) H 10/30/17 16:18 Albumin/Globulin Ratio 0.6 (1-3) L 10/30/17 16:18 Triglycerides 100 mg/dL 10/31/17 05:23 Cholesterol 126 mg/dL 10/31/17 05:23 LDL Cholesterol 90 mg/dL 10/31/17 05:23 HDL Cholesterol 15.6 mg/dL 10/31/17 05:23 TSH 0.46 mcIU/mL (0.34-5.60) 10/30/17 16:18 Urine Color Yellow 10/30/17 19:45 Urine Appearance Cloudy 10/30/17 19:45 Urine pH 6.0 (5-9) 10/30/17 19:45 Ur Specific [place] 1.032 (1.010-1.030) H 10/30/17 19:45 Urine Protein 1+(30 mg/dl) (Negative) A 10/30/17 19:45 Urine Ketones 1+ (Negative) A 10/30/17 19:45 Urine Blood 2+ (Negative) A 10/30/17 19:45 Urine Nitrate Negative (Negative) 10/30/17 19:45 Urine Bilirubin Negative (Negative) 10/30/17 19:45 Urine Urobilinogen Negative (Negative) 10/30/17 19:45 Ur Leukocyte Esterase 3+ (Negative) A 10/30/17 19:45 Urine WBC (Auto) 3+(>20/hpf) (Absent) A 10/30/17 19:45 Urine RBC (Auto) 3+(>10/hpf) (Absent) A 10/30/17 19:45 Ur Squamous Epith Cells Present (Absent) A 10/30/17 19:45 Urine Bacteria 2+ (Absent) A 10/30/17 19:45 Urine Yeast Present (Absent) A 10/30/17 19:45 Urine Glucose 3+(>=500 mg/dl) (Negative) A 10/30/17 19:45 dressing clean and intact PE: able to dorsi flex/plantar flex with intact sensation over left foot Assessment: s/p I&D LLE abscess Plan: 1) continue DVT prophylaxis 2) continue IV Abx 3) possible repeat I&D
[2017-11-06] MEDS: amLODIPine TAB* 5 MG PO SCH (13:33)
--- NOTE | 2017-11-06 15:39 | PN ---
Subjective Date of Service: 10/30/17 Interval History: Pt feels well. Feels bored. Objective Active Medications: Acetaminophen (Tylenol Tab*) 650 mg PO Q4H PRN PRN Reason: FEVER/PAIN Last Admin: 11/05/17 19:46 Dose: 650 mg Amlodipine Besylate (Norvasc Tab*) 10 mg PO DAILY@1400 [facility] Last Admin: 11/06/17 13:33 Dose: 10 mg Dextrose (D50w Syringe 50 Ml*) 12.5 gm IV PUSH .FOR FS < 60 - SS PRN PRN Reason: FS < 60 Glipizide (Glucotrol Tab*) 10 mg PO BID AC [facility] Last Admin: 11/06/17 08:40 Dose: 10 mg Heparin Sodium (Porcine) (Heparin Vial(*)) 5,000 units SUBCUT Q8HR [facility] Last Admin: 11/06/17 13:33 Dose: 5,000 units Clindamycin HCl/Dextrose (Cleocin 600 Mg Ivpremix(*) Sdv) 600 mg in 50 mls @ 100 mls/hr IV Q8H [facility] Last Admin: 11/06/17 10:18 Dose: 100 mls/hr Insulin Human Lispro (Humalog*) 0 units SUBCUT ACHS [facility] PRN Reason: Protocol Last Admin: 11/06/17 12:04 Dose: 2 units Metformin HCl (Glucophage*) 1,000 mg PO 0800,1700 [facility] Last Admin: 11/06/17 08:38 Dose: 500 mg Metoprolol Tartrate (Lopressor Tab*) 50 mg PO BID [facility] Last Admin: 11/06/17 08:37 Dose: 50 mg Morphine Sulfate (Morphine Vial*) 4 mg IV Q4H PRN PRN Reason: PAIN Last Admin: 11/05/17 11:02 Dose: 4 mg Nystatin (Nystatin Top Powder*) 1 applic TOPICAL BID [facility] Last Admin: 11/06/17 08:43 Dose: 1 applic Oxycodone/Acetaminophen (Percocet 5/325 Tab*) 1 tab PO Q4H PRN PRN Reason: Pain Last Admin: 11/06/17 12:22 Dose: 1 tab Pharmacy Profile Note (Scopolamine Patch Remove*) 1 note PATCH OFF Q72H ONE Stop: 11/08/17 14:29 Vital Signs - 8 hr 11/06/17 11/06/1711/06/18 08:00 08:05 08:41 Temperature Pulse Rate Respiratory 14 12 Rate Blood Pressure 183/110 (mmHg) O2 Sat by Pulse 97 97 Oximetry 11/06/17 11/06/17 11/06/17 11:15 11:37 12:22 Temperature 99.2 F Pulse Rate 71 Respiratory 14 18 14 Rate Blood Pressure 158/78 (mmHg) O2 Sat by Pulse 96 Oximetry 11/06/17 13:35 Temperature Pulse Rate 82 Respiratory Rate Blood Pressure 165/68 (mmHg) O2 Sat by Pulse Oximetry Oxygen Devices in Use Now: None Appearance: 56 yo f in NAD, AAOx3 Eyes: No Scleral Icterus, PERRLA Ears/Nose/Mouth/Throat: NL Teeth, Lips, Gums, Mucous Membranes Moist Neck: NL Appearance and Movements; NL JVP, Trachea Midline Respiratory: Symmetrical Chest Expansion and Respiratory Effort, Clear to Auscultation Cardiovascular: NL Sounds; No Murmurs; No JVD, RRR Abdominal: NL Sounds; No Tenderness; No Distention Lymphatic: No Cervical Adenopathy Extremities: No Clubbing, Cyanosis, - - left leg edema, post op wrap not removed Skin: No Nodules or Sclerosis, - - left ankle wound not examined today Neurological: Alert and Oriented x 3, NL Muscle Strength and Tone Result Diagrams: 11/06/17 06:38 11/06/17 06:34 Microbiology and Other Data: Microbiology 10/30/17 21:24 Aerobic Blood Culture - Preliminary Blood Venous No Growth Day 1 Anaerobic Blood Culture - Preliminary No Growth Day 1 Assess/Plan/Problems-Billing Ms Butcher is a 56 yo F with no medical care since age of 19 who presented to the ER with now with left leg cellulitis. - Patient Problems (1) Cellulitis and abscess of left leg Comment: Ultrasound of left leg revealed abscess overlying medial L ankle and posterior calf. MRI ankle negative for osteo. S/p I&D of left ankle by Dr. Alfonso on 11/05/17, may jonny to re-eval in OR on 09/10 cont clindamycin for now (2) HTN (hypertension) Comment: BP still elevated. Increased lisinopril to 40 mg today. Continue metoprolol and amlodipine at current doses. (3) DM2 (diabetes mellitus, type 2) Comment: Blood sugars remain under decent control. Continue glipizide, increase metformin to 1000 BID. D/c Lantus and monitor on ISS. Pt is not interested in insulin tx as outpatient and would rather not do it. (4) Hyponatremia Comment: spurious , due to high sugars (5) DVT prophylaxis Comment: SQ heparin Status and Disposition: .Inpatient
[2017-11-06] MEDS: Morphine VIAL* 4 MG/ML VIAL (1 ml vial) IV PRN (19:48)
[2017-11-07] MEDS: Clindamycin 600 MG IVPREMIX(* 600 MG/50 ML SDV IV SCH ×2 (02:16→10:19)
[2017-11-07] MEDS: Morphine VIAL* 4 MG/ML VIAL (1 ml vial) IV PRN ×3 (03:02→21:51)
[2017-11-07] MEDS: Heparin VIAL(*) 5000 UNITS/ML VIAL (FIVE THOUSAND) SUBCUT SCH ×3 (04:10→21:53)
[2017-11-07] MEDS: oxyCODONE/Acetamin 5/325 MG* TAB PO PRN ×4 (07:43→23:39)
[2017-11-07] MEDS: Insulin LISPRO* 1 UNITS UNIT SUBCUT SCH ×4 (07:50→21:04)
[2017-11-07] MEDS: Metoprolol Tartrate TAB* 25 MG PO SCH (07:50)
[2017-11-07] MEDS: metFORMIN* 500 MG TAB PO SCH ×2 (07:51→18:06)
[2017-11-07] MEDS: glipiZIDE TAB* 5 MG PO SCH ×2 (07:51→18:05)
[2017-11-07] MEDS: Nystatin TOP POWDER* 15 GM BTL TOPICAL SCH ×2 (07:51→21:06)
[2017-11-07] MEDS ORDERED: Metoprolol Tartrate TAB* 25 MG PO SCH ×2 (08:24→21:00)
[2017-11-07] MEDS ORDERED: Metoprolol Tartrate TAB* 25 MG PO ONE (08:58)
[2017-11-07] MEDS: hydrALAZINE IV* 20 MG/ML VIAL IV SLOW PU PRN ×2 (12:10→18:07)
[2017-11-07] MEDS ORDERED: Famotidine TAB* 20 MG PO ONE (12:20)
[2017-11-07] MEDS ORDERED: Buffered Lidocaine 0.9% SYRIN* 5 ML/SYR SYRINGE INTRADERM ONE (12:20)
[2017-11-07] MEDS ORDERED: Clindamycin 600 MG IVPREMIX(* 600 MG/50 ML SDV ONE (13:54)
[2017-11-07] MEDS ORDERED: HYDROmorphone INJ* 1 MG/ML CARPUJECT SYRINGE IV PRN (13:59)
[2017-11-07] MEDS ORDERED: Naloxone* 0.4 MG/ML 1 ML VIAL IV PRN (13:59)
[2017-11-07] MEDS ORDERED: DiMENhydriNATE IV* 50 MG/ML VIAL IV PUSH PRN (13:59)
[2017-11-07] MEDS ORDERED: Ondansetron INJ* 2 MG/ML VIAL IV PRN (13:59)
[2017-11-07] MEDS ORDERED: fentaNYL* 50 MCG/ML 2 ML VIAL (100 MCG VIAL) IV PRN (13:59)
[2017-11-07] MEDS ORDERED: Midazolam* 1 MG/ML 5 ML VIAL (5 MG) ONE (14:04)
[2017-11-07] MEDS ORDERED: fentaNYL* 50 MCG/ML 5 ML VIAL (250 MCG VIAL) ONE (14:04)
[2017-11-07] MEDS ORDERED: Ondansetron INJ* 2 MG/ML VIAL ONE (14:05)
[2017-11-07] MEDS ORDERED: Propofol* 10 MG/ML 20 ML BTL IV PUSH ONE (14:05)
[2017-11-07] MEDS ORDERED: Lidocaine 2% PF * 5 ML VIAL ONE (14:06)
[2017-11-07] MEDS ORDERED: Bupivacaine 0.25% SDV* 30 ML ONE (14:29)
[2017-11-07] MEDS ORDERED: Bacitracin IV* 50,000 UNITS INJ ONE (14:35)
[2017-11-07] MEDS ORDERED: ceFAZolin 1 GM VIAL(*) 1 GM in NS 0.9% 50 ML* 50 ML IVPB SCH (15:00)
[2017-11-07] MEDS ORDERED: HYDROmorphone INJ* 2 MG/ML CARPUJECT SYRINGE ONE (15:44)
[2017-11-07] MEDS: amLODIPine TAB* 5 MG PO SCH (16:55)
[2017-11-07] MEDS: ceFAZolin 1 GM VIAL(*) 1 GM in D5W 50 ML BAG* 50 ML IVPB SCH ×2 (16:56→21:01)
--- NOTE | 2017-11-07 17:25 | PN ---
Subjective Date of Service: 11/07/17 Interval History: Pt went to OR today and returned with wound vac in place. Feels tired. SBP had been elevated but her PO med had been held Objective Active Medications: Acetaminophen (Tylenol Tab*) 650 mg PO Q4H PRN PRN Reason: FEVER/PAIN Last Admin: 11/05/17 19:46 Dose: 650 mg Amlodipine Besylate (Norvasc Tab*) 10 mg PO DAILY@1400 [facility] Last Admin: 11/07/17 16:55 Dose: 10 mg Dextrose (D50w Syringe 50 Ml*) 12.5 gm IV PUSH .FOR FS < 60 - SS PRN PRN Reason: FS < 60 Dimenhydrinate (Dramamine Iv*) 25 mg IV PUSH ONCE PRN PRN Reason: NAUSEA/VOMITING Stop: 11/07/17 19:00 Fentanyl Citrate (Fentanyl*) 50 mcg IV Q2M PRN PRN Reason: PAIN - MODERATE Stop: 11/07/17 19:00 Glipizide (Glucotrol Tab*) 10 mg PO BID AC [facility] Last Admin: 11/07/17 07:51 Dose: Not Given Heparin Sodium (Porcine) (Heparin Vial(*)) 5,000 units SUBCUT Q8HR [facility] Last Admin: 11/07/17 14:51 Dose: Not Given Hydralazine HCl (Apresoline Iv*) 5 mg IV SLOW PU Q6H PRN PRN Reason: BLOOD PRESSURE Last Admin: 11/07/17 12:10 Dose: 5 mg Hydromorphone HCl (Dilaudid Injic*) 0.2 mg IV Q5M PRN PRN Reason: PAIN - SEVERE Stop: 11/07/17 19:00 Last Admin: 11/07/17 15:49 Dose: 0.2 mg Lactated Ringer's (Lactated Ringers 1000 Ml Bag*) 1,000 mls @ 125 mls/hr IV PER RATE [facility] Cefazolin Sodium 1 gm/ (Dextrose) 50 mls @ 200 mls/hr IVPB Q6H [facility] Last Admin: 11/07/17 16:56 Dose: 200 mls/hr Insulin Human Lispro (Humalog*) 0 units SUBCUT ACHS [facility] PRN Reason: Protocol Last Admin: 11/07/17 11:41 Dose: Not Given Metformin HCl (Glucophage*) 1,000 mg PO 0800,1700 [facility] Last Admin: 11/07/17 07:51 Dose: Not Given Metoprolol Tartrate (Lopressor Tab*) 75 mg PO BID [facility] Morphine Sulfate (Morphine Vial*) 4 mg IV Q4H PRN PRN Reason: PAIN Last Admin: 11/07/17 16:55 Dose: 4 mg Naloxone HCl (Narcan*) 0.08 mg IV Q2M PRN PRN Reason: severe induced resp depression Stop: 11/07/17 19:00 Nystatin (Nystatin Top Powder*) 1 applic TOPICAL BID [facility] Last Admin: 11/07/17 07:51 Dose: 1 applic Ondansetron HCl (Zofran Inj*) 4 mg IV ONCE PRN PRN Reason: NAUSEA/VOMITING Stop: 11/07/17 19:00 Oxycodone/Acetaminophen (Percocet 5/325 Tab*) 1 tab PO Q4H PRN PRN Reason: Pain Last Admin: 11/07/17 11:40 Dose: 1 tab Pharmacy Profile Note (Scopolamine Patch Remove*) 1 note PATCH OFF Q72H ONE Stop: 11/08/17 14:29 Vital Signs - 8 hr 11/07/17 11/07/17 11/07/17 11:40 11:48 15:25 Temperature 97.8 F 98.2 F Pulse Rate 70 85 Respiratory 14 18 16 Rate Blood Pressure 170/77 198/101 (mmHg) O2 Sat by Pulse 99 95 Oximetry 11/07/17 11/07/17 11/07/17 15:30 15:35 15:45 Temperature Pulse Rate 84 83 81 Respiratory 16 16 20 Rate Blood Pressure 188/101 211/108 198/104 (mmHg) O2 Sat by Pulse 95 94 94 Oximetry 11/07/17 11/07/17 11/07/17 15:49 16:10 16:55 Temperature 99.9 F Pulse Rate 72 Respiratory 16 16 18 Rate Blood Pressure 188/102 (mmHg) O2 Sat by Pulse 95 Oximetry Oxygen Devices in Use Now: Nasal Cannula Appearance: 56 yo F in nAD, aAOx3 Eyes: No Scleral Icterus, PERRLA Ears/Nose/Mouth/Throat: NL Teeth, Lips, Gums, Mucous Membranes Moist Neck: NL Appearance and Movements; NL JVP, Trachea Midline Respiratory: Symmetrical Chest Expansion and Respiratory Effort, Clear to Auscultation Cardiovascular: NL Sounds; No Murmurs; No JVD, RRR Abdominal: NL Sounds; No Tenderness; No Distention Lymphatic: No Cervical Adenopathy Extremities: No Clubbing, Cyanosis, - - left ankle in post op dressings and vac in place not unwrapped Result Diagrams: 11/06/17 06:38 11/06/17 06:34 Microbiology and Other Data: Microbiology 10/30/17 21:24 Aerobic Blood Culture - Preliminary Blood Venous No Growth Day 1 Anaerobic Blood Culture - Preliminary No Growth Day 1 Assess/Plan/Problems-Billing Ms Butcher is a 56 yo F with no medical care since age of 19 who presented to the ER with now with left leg cellulitis. - Patient Problems (1) Cellulitis and abscess of left leg Comment: Ultrasound of left leg revealed abscess overlying medial L ankle and posterior calf. MRI ankle negative for osteo. S/p I&D of left ankle by Dr. Alfonso on 11/05/17, and on 11/07/17, now with wound vac. Strep group B growing from wound cx is resistant to Clindamycin, will start Ancef-OK'ed by ID (2) HTN (hypertension) Comment: BP still elevated. Increased lisinopril to 40 mg today. Continue metoprolol and amlodipine at current doses. (3) DM2 (diabetes mellitus, type 2) Comment: Blood sugars remain under decent control. Continue glipizide, increase metformin to 1000 BID. D/c Lantus and monitor on ISS. Pt is not interested in insulin tx as outpatient and would rather not do it. (4) Hyponatremia Comment: spurious , due to high sugars (5) DVT prophylaxis Comment: SQ heparin Status and Disposition: .Inpatient
[2017-11-08] MEDS: ceFAZolin 1 GM VIAL(*) 1 GM in D5W 50 ML BAG* 50 ML IVPB SCH ×4 (03:42→20:50)
[2017-11-08] MEDS: hydrALAZINE IV* 20 MG/ML VIAL IV SLOW PU PRN (04:23)
[2017-11-08] MEDS: Morphine VIAL* 4 MG/ML VIAL (1 ml vial) IV PRN ×2 (04:28→16:57)
[2017-11-08] MEDS: Heparin VIAL(*) 5000 UNITS/ML VIAL (FIVE THOUSAND) SUBCUT SCH ×3 (05:46→21:30)
[2017-11-08 07:30] LABS: ABS Basophils 0.1 10^3/ul (0-0.2); ABS Eosinophils 0.3 10^3/ul (0-0.6); ABS Lymphocytes 2.1 10^3/ul (1.0-4.8); ABS Monocytes 0.7 10^3/ul (0-0.8); ABS Neutrophils 8.8 10^3/ul (1.5-7.7); ABS Nucleated RBC 0 10^3/ul; Eosinophil % 2.5 % (0-6); Hematocrit 32 % (35-47); Hemoglobin 10.5 g/dl (12.0-16.0); Lymphocyte % 17.5 % (25-47); Mean Corpuscular HGB Conc 33 g/dl (31-36); Mean Corpuscular Hemoglobin 29 pg (27-31); Mean Corpuscular Volume 88 fL (80-97); Mean Platelet Volume 8.1 um3 (7.4-10.4); Nucleated Red Blood Cells % 0; Platelet Count 446 10^3/ul (150-450); Red Cell Distribution Width 14 % (10.5-15); White Blood Count 12.1 10^3/ul (3.5-10.8)
[2017-11-08 07:40] LABS: EGFR Non-African American 86.9 (>60)
[2017-11-08] MEDS: oxyCODONE/Acetamin 5/325 MG* TAB PO PRN ×3 (09:06→20:49)
[2017-11-08] MEDS: metFORMIN* 500 MG TAB PO SCH ×2 (09:07→16:25)
[2017-11-08] MEDS: Metoprolol Tartrate TAB* 100 MG TAB PO SCH ×2 (09:07→20:49)
[2017-11-08] MEDS: glipiZIDE TAB* 5 MG PO SCH ×2 (09:07→16:26)
[2017-11-08] MEDS: Nystatin TOP POWDER* 15 GM BTL TOPICAL SCH ×2 (09:08→20:54)
[2017-11-08] MEDS: Insulin LISPRO* 1 UNITS UNIT SUBCUT SCH ×4 (09:08→20:41)
--- NOTE | 2017-11-08 13:40 | PN ---
Progress Note - Progress Note Date of Service: 11/08/17 SOAP: Subjective: []Patient seen at bedside. She feels well without fever, chills, nausea, dizziness, chest pain, shortness of breath. She has 4/10 of her LLE at site of infection. Objective: [] Vital Signs Temp 98.2 F 11/08/17 07:21 Pulse 76 11/08/17 07:21 Resp 22 11/08/17 09:06 BP 155/69 11/08/17 07:21 Pulse Ox 97 11/08/17 07:21 Intake & Output 11/07/17 11/08/17 11/08/17 18:59 06:59 18:59 Intake Total 410 1362 778 Output Total 300 Balance 410 1062 778 Weight 228 lb 4.8 oz Intake: IV Fluids 50 242 CLINDAMYCIN 600MG IV 50 LR 242 Oral 360 1120 778 Output: Urine 300 Other: Estimated Void Medium Large # Bowel Movements 0 0 # Voids 1 5 Laboratory Last Values WBC 12.1 10^3/ul (3.5-10.8) H 11/08/17 06:35 RBC 3.60 10^6/ul (4.0-5.4) L 11/08/17 06:35 Hgb 10.5 g/dl (12.0-16.0) L 11/08/17 06:35 Hct 32 % (35-47) L 11/08/17 06:35 MCV 88 fL (80-97) 11/08/17 06:35 MCH 29 pg (27-31) 11/08/17 06:35 MCHC 33 g/dl (31-36) 11/08/17 06:35 RDW 14 % (10.5-15) 11/08/17 06:35 Plt Count 446 10^3/ul (150-450) 11/08/17 06:35 MPV 8.1 um3 (7.4-10.4) 11/08/17 06:35 Neut % (Auto) 73.1 % (38-83) 11/08/17 06:35 Lymph % (Auto) 17.5 % (25-47) L 11/08/17 06:35 [place] % (Auto) 6.1 % (0-7) 11/08/17 06:35 Eos % (Auto) 2.5 % (0-6) 11/08/17 06:35 Baso % (Auto) 0.8 % (0-2) 11/08/17 06:35 Absolute Neuts (auto) 8.8 10^3/ul (1.5-7.7) H 11/08/17 06:35 Absolute Lymphs (auto) 2.1 10^3/ul (1.0-4.8) 11/08/17 06:35 Absolute Monos (auto) 0.7 10^3/ul (0-0.8) 11/08/17 06:35 Absolute Eos (auto) 0.3 10^3/ul (0-0.6) 11/08/17 06:35 Absolute Basos (auto) 0.1 10^3/ul (0-0.2) 11/08/17 06:35 Absolute Nucleated RBC 0 10^3/ul 11/08/17 06:35 Immature Gran % 4 % (0-9) 11/05/17 05:44 Neutrophils % 54 % (38-83) 11/05/17 05:44 Band Neutrophils % 2 % (0-8) 11/05/17 05:44 Lymphocytes % 30 % (25-47) 11/05/17 05:44 Monocytes % 11 % (0-7) H 11/05/17 05:44 Eosinophils % 1 % (0-6) 11/05/17 05:44 Basophils % 0 % (0-2) 11/05/17 05:44 Metamyelocytes % 1 % (0-2) 11/05/17 05:44 Myelocytes % 1 % (0-1) 11/05/17 05:44 Nucleated RBC % 0 11/08/17 06:35 Abs Neuts (Manual) 8.7 10^3/ul (1.5-7.7) H 11/05/17 05:44 Abs Lymphs (Manual) 4.9 10^3/ul (1.0-4.8) H 11/05/17 05:44 Abs Monocytes (Manual) 1.8 10^3/ul (0-0.8) H 11/05/17 05:44 Absolute Eos (Manual) 0.2 10^3/ul (0-0.6) 11/05/17 05:44 Abs Basophils (Manual) 0 10^3/ul (0-0.2) 11/05/17 05:44 Normal RBC Morphology Normal (Normal) 11/05/17 05:44 ESR 113 mm/Hr (0-30) H 10/30/17 16:18 Sodium 139 mmol/L (139-145) 11/08/17 06:35 Potassium 3.6 mmol/L (3.5-5.0) 11/08/17 06:35 Chloride 102 mmol/L (101-111) 11/08/17 06:35 Carbon Dioxide 30 mmol/L (22-32) 11/08/17 06:35 Anion Gap 7 mmol/L (2-11) 11/08/17 06:35 BUN 7 mg/dL (6-24) 11/08/17 06:35 Creatinine 0.70 mg/dL (0.51-0.95) 11/08/17 06:35 Est GFR ( Amer) 111.7 (>60) 11/08/17 06:35 Est GFR (Non-Af Amer) 86.9 (>60) 11/08/17 06:35 BUN/Creatinine Ratio 10.0 (8-20) 11/08/17 06:35 Glucose 109 mg/dL (70-100) H 11/08/17 06:35 POC Glucose (mg/dL) 125 mg/dL (70-100) H 11/08/17 07:55 POC Glucose Confirm 454 mg/dL (70-100) H 10/31/17 07:53 Hemoglobin A1c 14.6 % (4.0-5.6) H 10/30/17 16:18 Lactic Acid 1.0 mmol/L (0.5-2.0) 10/30/17 16:18 Calcium 8.5 mg/dL (8.6-10.3) L 11/08/17 06:35 Magnesium 1.8 mg/dL (1.9-2.7) L 11/08/17 06:35 Total Bilirubin 0.60 mg/dL (0.2-1.0) 10/30/17 16:18 AST 21 U/L (13-39) 10/30/17 16:18 ALT 29 U/L (7-52) 10/30/17 16:18 Alkaline Phosphatase 123 U/L (34-104) H 10/30/17 16:18 C-Reactive Protein 48.27 mg/L (< 5.00) H 11/05/17 05:44 Total Protein 7.7 g/dL (6.4-8.9) 10/30/17 16:18 Albumin 2.9 g/dL (3.2-5.2) L 10/30/17 16:18 Globulin 4.8 g/dL (2-4) H 10/30/17 16:18 Albumin/Globulin Ratio 0.6 (1-3) L 10/30/17 16:18 Triglycerides 100 mg/dL 10/31/17 05:23 Cholesterol 126 mg/dL 10/31/17 05:23 LDL Cholesterol 90 mg/dL 10/31/17 05:23 HDL Cholesterol 15.6 mg/dL 10/31/17 05:23 TSH 0.46 mcIU/mL (0.34-5.60) 10/30/17 16:18 Urine Color Yellow 10/30/17 19:45 Urine Appearance Cloudy 10/30/17 19:45 Urine pH 6.0 (5-9) 10/30/17 19:45 Ur Specific [place] 1.032 (1.010-1.030) H 10/30/17 19:45 Urine Protein 1+(30 mg/dl) (Negative) A 10/30/17 19:45 Urine Ketones 1+ (Negative) A 10/30/17 19:45 Urine Blood 2+ (Negative) A 10/30/17 19:45 Urine Nitrate Negative (Negative) 10/30/17 19:45 Urine Bilirubin Negative (Negative) 10/30/17 19:45 Urine Urobilinogen Negative (Negative) 10/30/17 19:45 Ur Leukocyte Esterase 3+ (Negative) A 10/30/17 19:45 Urine WBC (Auto) 3+(>20/hpf) (Absent) A 10/30/17 19:45 Urine RBC (Auto) 3+(>10/hpf) (Absent) A 10/30/17 19:45 Ur Squamous Epith Cells Present (Absent) A 10/30/17 19:45 Urine Bacteria 2+ (Absent) A 10/30/17 19:45 Urine Yeast Present (Absent) A 10/30/17 19:45 Urine Glucose 3+(>=500 mg/dl) (Negative) A 10/30/17 19:45 General: Well appearing, NAD LLE: Wound vac in place and functioning. Dressing CDI with minimal erythema proximal and distal to dressing which does not span outside of demarcated lines. Capillary refill is less than two seconds and sensation is intact to light touch distally. DF/PF intact but limited. Assessment: []Left leg cellulitis with abscess SP washout and wound vac placement Plan: []Dressing and vac to remain in place PT/OT for ROM ankle Will continue to follow <Sara Manley - Last Filed: 11/08/17 13:43> - Progress Note SOAP: A: 1. s/p 2nd I&D left lower leg abscess yesterday with wound VAC placement 2. L ankle stiffness 3. L lower leg skin defect P: 1. VAC 2. IV abx 3. PT for ROM exercises left ankle. Given patient's exam, ankle joint infection is unlikely. It is likely that 3 weeks of soft tissue swelling of the lower leg led to limited ROM ankle and resultant stiffness. 4. There are 2 central issues- a) infection that has clearly improved with 2 I& Ds and b) remaining skin defect. Once infection is well debulked and skin viability has declared itself, skin defect can be addresses via continued VAC versus STSG. 5. I will examine the VAC and wound tomorrow on VAC plan. Patient will need a wound VAC change sometime between Sunday and Sunday in the OR or on the floor. I'm making her NPO p midnight just in case, although unlikely to take to OR tomorrow. <Camilo Richmond - Last Filed: 11/08/17 17:00>
--- NOTE | 2017-11-08 14:09 | CONSULT ---
IIsak Gabriel, scribed for Roger Blake MD on 10/30/17 at 1610 . Consult Consult: I performed an emergency bedside US on the patient. Which showed no drainable fluid collection The documentation as recorded by the scribeIsak Gabriel accurately reflects the service I personally performed and the decisions made by , Roger Blake MD.
[2017-11-08] MEDS ORDERED: Scopolamine PATCH Remove* 1 NOTE MISC PATCH OFF ONE (14:28)
[2017-11-08] MEDS: amLODIPine TAB* 5 MG PO SCH (14:30)
--- NOTE | 2017-11-08 15:42 | PN ---
Subjective Date of Service: 11/08/17 Interval History: feels well, no new complaints. Objective Active Medications: Acetaminophen (Tylenol Tab*) 650 mg PO Q4H PRN PRN Reason: FEVER/PAIN Last Admin: 11/05/17 19:46 Dose: 650 mg Amlodipine Besylate (Norvasc Tab*) 10 mg PO DAILY@1400 [facility] Last Admin: 11/08/17 14:30 Dose: 10 mg Dextrose (D50w Syringe 50 Ml*) 12.5 gm IV PUSH .FOR FS < 60 - SS PRN PRN Reason: FS < 60 Glipizide (Glucotrol Tab*) 10 mg PO BID AC [facility] Last Admin: 11/08/17 09:07 Dose: 10 mg Heparin Sodium (Porcine) (Heparin Vial(*)) 5,000 units SUBCUT Q8HR [facility] Last Admin: 11/08/17 14:31 Dose: 5,000 units Hydralazine HCl (Apresoline Iv*) 5 mg IV SLOW PU Q6H PRN PRN Reason: BLOOD PRESSURE Last Admin: 11/08/17 04:23 Dose: 5 mg Cefazolin Sodium 1 gm/ (Dextrose) 50 mls @ 200 mls/hr IVPB Q6H [facility] Last Admin: 11/08/17 09:08 Dose: 200 mls/hr Insulin Human Lispro (Humalog*) 0 units SUBCUT ACHS [facility] PRN Reason: Protocol Last Admin: 11/08/17 14:08 Dose: 2 units Metformin HCl (Glucophage*) 1,000 mg PO 0800,1700 [facility] Last Admin: 11/08/17 09:07 Dose: 1,000 mg Metoprolol Tartrate (Lopressor Tab*) 100 mg PO BID [facility] Last Admin: 11/08/17 09:07 Dose: 100 mg Morphine Sulfate (Morphine Vial*) 4 mg IV Q4H PRN PRN Reason: PAIN Last Admin: 11/08/17 04:28 Dose: 4 mg Nystatin (Nystatin Top Powder*) 1 applic TOPICAL BID [facility] Last Admin: 11/08/17 09:08 Dose: 1 applic Oxycodone/Acetaminophen (Percocet 5/325 Tab*) 1 tab PO Q4H PRN PRN Reason: Pain Last Admin: 11/08/17 14:29 Dose: 1 tab Vital Signs - 8 hr 11/08/17 11/08/17 09:06 14:29 Respiratory 22 18 Rate Oxygen Devices in Use Now: Nasal Cannula Appearance: 56 yo f in nAD, aAOx3 Eyes: No Scleral Icterus, PERRLA Ears/Nose/Mouth/Throat: NL Teeth, Lips, Gums, Mucous Membranes Moist Neck: NL Appearance and Movements; NL JVP, Trachea Midline Respiratory: Symmetrical Chest Expansion and Respiratory Effort, Clear to Auscultation Cardiovascular: NL Sounds; No Murmurs; No JVD, RRR Abdominal: NL Sounds; No Tenderness; No Distention Lymphatic: No Cervical Adenopathy Extremities: No Clubbing, Cyanosis, - - left lower leg edema. Ankle in post op dressings and wound vac in place. Skin: No Nodules or Sclerosis, - - left ankle wound with wound vac in place Neurological: Alert and Oriented x 3, NL Muscle Strength and Tone Result Diagrams: 11/08/17 06:35 11/08/17 06:35 Microbiology and Other Data: Microbiology 10/30/17 21:24 Aerobic Blood Culture - Preliminary Blood Venous No Growth Day 1 Anaerobic Blood Culture - Preliminary No Growth Day 1 Assess/Plan/Problems-Billing Ms Butcher is a 56 yo F with no medical care since age of 19 who presented to the ER with now with left leg cellulitis. - Patient Problems (1) Cellulitis and abscess of left leg Comment: Ultrasound of left leg revealed abscess overlying medial L ankle and posterior calf. MRI ankle negative for osteo. S/p I&D of left ankle by Dr. Alfonso on 11/05/17, and on 11/07/17, now with wound vac. Strep group B growing from wound cx is resistant to Clindamycin, Ancef started om 09/10/17 (2) HTN (hypertension) Comment: BP still elevated. Increased lopressor to 100 mg BID today. Continue lisinopril and amlodipine at current doses. (3) DM2 (diabetes mellitus, type 2) Comment: Blood sugars remain under decent control. Continue glipizide, metformin . monitor on ISS. Pt is not interested in insulin tx as outpatient and would rather not do it. (4) Hyponatremia Comment: spurious , due to high sugars (5) DVT prophylaxis Comment: SQ heparin Status and Disposition: .Inpatient
--- NOTE | 2017-11-09 | OP ---
OPERATIVE REPORT: DATE OF OPERATION: 11/07/17 - Inpatient, room 414-01. DATE OF : 62 SURGEON: Camilo Richmond MD STENCIL MACHINE OPERATOR: NADEEN Alcaraz A physician wet process miller head assistant was required for the length of the procedure for positioning, retraction, and closure. ANESTHESIOLOGIST: Dr. Maged Thakkar. ANESTHESIA: General anesthesia. PRE-OP DIAGNOSES: 1. Left lower leg abscess and cellulitis. 2. Left lower leg skin defect. 3. Status post incision, irrigation and debridement on 11/05/[address] Jaxon Alfonso. POST-OP DIAGNOSES: 1. Left lower leg abscess and cellulitis. 2. Left lower leg skin defect. 3. Status post incision, irrigation and debridement on 11/05/[address] Jaxon Alfonso. OPERATIVE PROCEDURE: 1. Open debridement left lower leg, skin, subcutaneous tissue, muscle. 2. Placement of a negative pressure wound therapy device, a vacuum-assisted closure of greater than 50 cm sq. IV FLUIDS: 700 cc crystalloid. ANTIBIOTICS: Clindamycin 600 mg IV. [id number] INCISION TIME: 31 minutes. IRRIGANT USED FOR IRRIGATION: 6 L. SPECIMEN: None. IMPLANTS: Vacuum-assisted closure, VAC device. COMPLICATIONS: None. ESTIMATED BLOOD LOSS: Minimal. 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 The patient approximately 2-1/2 weeks prior had fallen about the bottom step of the stairs to her basement. She thought she might have sprained her ankle. While there was no open wound, bleeding or sores, the patient developed some erythema of her foot and then lower leg. She then developed stiffness in the left ankle and that persisted for approximately 2-1/2 weeks. The patient was seen in urgent care on 10/30/17 and was [place] [facility] [place] was diagnosed with left lower extremity cellulitis, about the lower leg and foot and ankle. The patient was managed by the hospitalist and ID services. Her antibiotics started with vancomycin and eventually it would change to a clindamycin. She was noted upon admission to have uncontrolled diabetes with a hemoglobin A1c of 14.6 and very high serum glucoses. She was started on diabetes medications. I was consulted on 11/04/17, in the afternoon, after an ultrasound, that has been ordered by the hospitalist service, demonstrated likely abscesses in the lower leg. I ordered an MRI immediately, stat, to better define these. The patient had just eaten a full meal, but I made the patient n.p.o. after midnight , and I had one of my partners, Dr. Jaxon Alfonso, performed an incision, irrigation and debridement on 11/05/17. Dr. Alfonso's operative note indicates that he appreciated 2 areas of collection on exam and that a skin incision was made connecting these 2. He debrided much purulence and irrigated this 3 L of normal saline. He packed the wound. He noted some poor quality of skin posteriorly about the posterior aspect of his skin incision. The patient has had improved blood glucoses as well as improved white blood cell counts since the first procedure. A second irrigation and debridement procedure was deemed appropriate by both Dr. Alfonso and myself because of the gross pus and purulence present at the time of the first procedure. The patient noted that the night prior to this surgery, her packing and dressing were soaked through and that it was very painful for her to undergo a dressing change on the floor. That had been much more painful than any other part like this experience to date. I booked the patient for a repeat irrigation and debridement with possible packing or possible wound VAC placement. My preoperative preference was for a wound VAC so that a dressing change would not need to be performed other than when a wound VAC would need to be changed. With much fluid drainage, this would be particularly helpful and less painful for the patient. However, I went into the operation thinking that if there were still significant purulence , I would pack the wound again and hold off on the wound VAC placement. The patient signed a written consent for irrigation, debridement, and possible wound VAC placement. I have discussed briefly risks and potential complications. DESCRIPTION OF PROCEDURE: The patient had signed a written consent. Operative extremity was marked in preoperative holding. The patient was taken to the operating room and placed supine on the operating room table. The patient was sedated and general anesthesia was applied. A tourniquet was placed about the left thigh. This was never inflated. The dressing was removed. The left lower extremity was prepped with Betadine. Draping was performed. Surgical time-out was performed. Examination of the wound was first performed. There was some blackened skin about the posterior aspect of the incision, at the mid point from proximal to distal. The surgical incision was much longer than it was wide. There was present some yellow tissue, necrotic versus a small amount of purulence, about the wound. However, there was no large amount of pus or purulence. I started my irrigation with pulse lavage device. I pulse lavaged with approximately 1 L of fluid. I next assessed the wound. I used a curette, large and rongeur to remove any clearing necrotic tissue or any yellow pocket of something that looked like infectious purulence material. The wound had exposed much muscle. Achilles tendon visible at the bottom of the incision. While the fat about the retrocalcaneal space was visible, no clear connection with the posterior aspect of the tibiotalar ankle joint. The saphenous nerve visible under the anterior skin flap, but not exposed to air that was deep to the anterior skin, but visible under that anterior skin. I removed some skin and subcutaneous tissue mostly posterior, but a small amount anterior back to healthier bleeding skin and subcutaneous edges. Continued irrigation with pulse lavage. I used a total of 6 L for my irrigation. I decided to place a wound VAC. I cut a sponge to the appropriate size, making it slightly smaller than the wound, hoping that this would allow for more contraction at the skin opening defect site. Appropriate plastic placed. No leak detected. The patient's drapes were removed. General anesthesia was undone and the patient was transferred to PACU. DISPOSITION: The patient was readmitted to the medicine service. Her diabetes mellitus will continue to be managed appropriately. She will be continued on IV antibiotics, that may be subsequently changed based on prior cultures, obtained by Dr. Alfonso on Sunday in the index procedure. The patient now has a sizeable skin defect that will need to be managed along with her infection. Depending on the quality of the wound, the patient will undergo a wound VAC change in the operating room or on 11/16/17 in 2 to 5 days. When infection is cleared, some type of wound closure procedure may be required. [id number]/CPS #: [id number] WILLIAM
[2017-11-09] MEDS: ceFAZolin 1 GM VIAL(*) 1 GM in D5W 50 ML BAG* 50 ML IVPB SCH ×4 (03:16→21:14)
[2017-11-09] MEDS: Heparin VIAL(*) 5000 UNITS/ML VIAL (FIVE THOUSAND) SUBCUT SCH ×3 (05:38→21:15)
[2017-11-09] MEDS: glipiZIDE TAB* 5 MG PO SCH ×2 (10:55→18:18)
[2017-11-09] MEDS: metFORMIN* 500 MG TAB PO SCH ×2 (10:56→18:18)
[2017-11-09] MEDS: Insulin LISPRO* 1 UNITS UNIT SUBCUT SCH ×4 (10:56→21:14)
[2017-11-09] MEDS: Metoprolol Tartrate TAB* 100 MG TAB PO SCH ×2 (10:57→21:14)
[2017-11-09] MEDS: Hydrochlorothiazide TAB* 25 MG PO SCH (10:57)
[2017-11-09] MEDS: Nystatin TOP POWDER* 15 GM BTL TOPICAL SCH ×2 (10:58→21:20)
--- NOTE | 2017-11-09 11:08 | PN ---
Progress Note - Progress Note Date of Service: 11/09/17 SOAP: Subjective: CC: cellulitis HPI: 56 year old with untreated diabetes and left leg redness, swelling, pain. Improved then developed abscess while on clindamycin; had I&D x2. No fever, rash, or diarrhea; pain in ankle improved. Objective: Vital Signs Temp 36.8 C 11/09/17 07:37 Pulse 84 11/09/17 07:37 Resp 20 11/09/17 07:37 BP 157/80 11/09/17 08:00 Pulse Ox 92 11/09/17 07:37 Intake & Output 11/08/17 11/09/17 11/09/17 18:59 06:59 18:59 Intake Total 1218 480 Balance 1218 480 Intake: Oral 1218 480 Other: Estimated Void Medium # Bowel Movements 0 1 Estimated Stool Amount Large # Voids 4 2 Gen:awake, no distress Neck: no mass Heart:RRR no murmur Lungs:CTA BL Abd:+BS NTND soft Skin:no rash MSK: wrapped; improved ROM with flexion/extension Assessment: 1. left leg cellulitis/abscess due to Grp B Strep that developed clinda resistance while on treatment 2. left ankle pain due to cellulitis, improving as is ROM. 3. T2DM, uncontrolled, with hyperglycemia 4. obesity Plan: 1. continue ancef day 7 while here then keflex as outpatient. Vac dressing changes per ortho. Discussed with Dr Greenwood
[2017-11-09] MEDS: amLODIPine TAB* 5 MG PO SCH (13:05)
[2017-11-09] MEDS: oxyCODONE/Acetamin 5/325 MG* TAB PO PRN ×2 (13:48→22:36)
--- NOTE | 2017-11-09 13:59 | PN ---
Subjective Date of Service: 11/09/17 Interval History: Pt feels well. Surgery just changed her wound dressings SBP's had been in 170's Objective Active Medications: Acetaminophen (Tylenol Tab*) 650 mg PO Q4H PRN PRN Reason: FEVER/PAIN Last Admin: 11/05/17 19:46 Dose: 650 mg Amlodipine Besylate (Norvasc Tab*) 10 mg PO DAILY@1400 [facility] Last Admin: 11/09/17 13:05 Dose: 10 mg Dextrose (D50w Syringe 50 Ml*) 12.5 gm IV PUSH .FOR FS < 60 - SS PRN PRN Reason: FS < 60 Glipizide (Glucotrol Tab*) 10 mg PO BID AC [facility] Last Admin: 11/09/17 10:55 Dose: Not Given Heparin Sodium (Porcine) (Heparin Vial(*)) 5,000 units SUBCUT Q8HR [facility] Last Admin: 11/09/17 13:04 Dose: 5,000 units Hydralazine HCl (Apresoline Iv*) 5 mg IV SLOW PU Q6H PRN PRN Reason: BLOOD PRESSURE Last Admin: 11/08/17 04:23 Dose: 5 mg Hydrochlorothiazide (Hydrodiuril Tab*) 25 mg PO DAILY [facility] Last Admin: 11/09/17 10:57 Dose: 25 mg Cefazolin Sodium 1 gm/ (Dextrose) 50 mls @ 200 mls/hr IVPB Q6H [facility] Last Admin: 11/09/17 11:00 Dose: 200 mls/hr Insulin Human Lispro (Humalog*) 0 units SUBCUT ACHS [facility] PRN Reason: Protocol Last Admin: 11/09/17 13:04 Dose: 1 units Metformin HCl (Glucophage*) 1,000 mg PO 0800,1700 [facility] Last Admin: 11/09/17 10:56 Dose: Not Given Metoprolol Tartrate (Lopressor Tab*) 100 mg PO BID [facility] Last Admin: 11/09/17 10:57 Dose: 100 mg Morphine Sulfate (Morphine Vial*) 4 mg IV Q4H PRN PRN Reason: PAIN Last Admin: 11/08/17 16:57 Dose: 4 mg Nystatin (Nystatin Top Powder*) 1 applic TOPICAL BID [facility] Last Admin: 11/09/17 10:58 Dose: 1 applic Oxycodone/Acetaminophen (Percocet 5/325 Tab*) 1 tab PO Q4H PRN PRN Reason: Pain Last Admin: 11/09/17 13:48 Dose: 1 tab Vital Signs - 8 hr 11/09/17 11/09/17 11/09/17 07:37 08:00 08:32 Temperature 98.3 F Pulse Rate 84 85 Respiratory 20 Rate Blood Pressure 171/75 157/80 173/73 (mmHg) O2 Sat by Pulse 92 87 Oximetry 11/09/17 11/09/17 11:11 13:48 Temperature 98.8 F Pulse Rate 86 Respiratory 20 16 Rate Blood Pressure 173/79 (mmHg) O2 Sat by Pulse 97 Oximetry Oxygen Devices in Use Now: Nasal Cannula Appearance: 56 yo F in NAD, aAOx4 Eyes: No Scleral Icterus, PERRLA Ears/Nose/Mouth/Throat: NL Teeth, Lips, Gums, Mucous Membranes Moist Neck: NL Appearance and Movements; NL JVP, Trachea Midline Respiratory: Symmetrical Chest Expansion and Respiratory Effort, Clear to Auscultation Cardiovascular: NL Sounds; No Murmurs; No JVD, RRR Abdominal: NL Sounds; No Tenderness; No Distention Lymphatic: No Cervical Adenopathy Extremities: No Clubbing, Cyanosis, - - left leg edema and cellultis resolving. Post op dressings and vac not removed Skin: No Nodules or Sclerosis Neurological: Alert and Oriented x 3, NL Muscle Strength and Tone Result Diagrams: 11/08/17 06:35 11/08/17 06:35 Microbiology and Other Data: Microbiology 10/30/17 21:24 Aerobic Blood Culture - Preliminary Blood Venous No Growth Day 1 Anaerobic Blood Culture - Preliminary No Growth Day 1 Assess/Plan/Problems-Billing Ms Butcher is a 56 yo F with no medical care since age of 19 who presented to the ER with now with left leg cellulitis. - Patient Problems (1) Cellulitis and abscess of left leg Comment: Ultrasound of left leg revealed abscess overlying medial L ankle and posterior calf. MRI ankle negative for osteo. S/p I&D of left ankle by Dr. Alfonso on 11/05/17, and on 11/07/17, now with wound vac. Strep group B growing from wound cx is resistant to Clindamycin, Ancef started om 09/10/17. Appreciate Dr. Parada's consult (2) HTN (hypertension) Comment: BP still elevated. starting HCTZ.Continue lisinopril, lopressor and amlodipine at current doses. (3) DM2 (diabetes mellitus, type 2) Comment: Blood sugars remain under fair control. Continue glipizide, metformin . monitor on ISS. Pt is not interested in insulin tx as outpatient and would rather not do it. (4) Hyponatremia Comment: spurious , due to high sugars (5) DVT prophylaxis Comment: SQ heparin Status and Disposition: .Inpatient
--- NOTE | 2017-11-09 16:41 | PN ---
Progress Note - Progress Note Date of Service: 11/09/17 SOAP: Subjective: 56 y/o female s/p muliple I&D for L wound, last 11/[address] Henson. Patient overall feeling well, no questions re: procedure. VSS, afebrile overnight. Objective: General- Well appearing, NAD, AO MSK- LLE- DF/PF +, negative homans sign, WOudn vac in place, bloody drainge noted, no sign of skin deterioration/ break down, modeate edema. Vital Signs Temp 98.1 F 11/09/17 15:08 Pulse 73 11/09/17 15:08 Resp 16 11/09/17 15:19 BP 154/72 11/09/17 15:08 Pulse Ox 91 11/09/17 16:00 Intake & Output 11/08/17 11/09/17 11/09/17 18:59 06:59 18:59 Intake Total 2934 590 2232 Balance 8516 923 0294 Intake: Oral 1858 025 1299 Other: Estimated Void Medium Large # Bowel Movements 0 1 2 Estimated Stool Amount Large Medium # Voids 4 2 1 Assessment: Stable s/p I&D 11/08 Plan: - DVT prophylaxis- heparin - Continue PT/ OT - H&H - stable - ABX - ID following, IV while in house - NPO tonight for wound vac change in AM, hold heparin tomorrow AM Acetaminophen (Tylenol Tab*) 650 mg PO Q4H PRN PRN Reason: FEVER/PAIN Last Admin: 11/05/17 19:46 Dose: 650 mg Amlodipine Besylate (Norvasc Tab*) 10 mg PO DAILY@1400 [facility] Last Admin: 11/09/17 13:05 Dose: 10 mg Dextrose (D50w Syringe 50 Ml*) 12.5 gm IV PUSH .FOR FS < 60 - SS PRN PRN Reason: FS < 60 Glipizide (Glucotrol Tab*) 10 mg PO BID [facility] Last Admin: 11/09/17 10:55 Dose: Not Given Heparin Sodium (Porcine) (Heparin Vial(*)) 5,000 units SUBCUT Q8HR [facility] Last Admin: 11/09/17 13:04 Dose: 5,000 units Hydralazine HCl (Apresoline Iv*) 5 mg IV SLOW PU Q6H PRN PRN Reason: BLOOD PRESSURE Last Admin: 11/08/17 04:23 Dose: 5 mg Hydrochlorothiazide (Hydrodiuril Tab*) 25 mg PO DAILY [facility] Last Admin: 11/09/17 10:57 Dose: 25 mg Cefazolin Sodium 1 gm/ (Dextrose) 50 mls @ 200 mls/hr IVPB Q6H [facility] Last Admin: 11/09/17 15:16 Dose: 200 mls/hr Insulin Human Lispro (Humalog*) 0 units SUBCUT ACHS [facility] PRN Reason: Protocol Last Admin: 11/09/17 13:04 Dose: 1 units Metformin HCl (Glucophage*) 1,000 mg PO 0800,1700 [facility] Last Admin: 11/09/17 10:56 Dose: Not Given Metoprolol Tartrate (Lopressor Tab*) 100 mg PO BID [facility] Last Admin: 11/09/17 10:57 Dose: 100 mg Morphine Sulfate (Morphine Vial*) 4 mg IV Q4H PRN PRN Reason: PAIN Last Admin: 11/08/17 16:57 Dose: 4 mg Nystatin (Nystatin Top Powder*) 1 applic TOPICAL BID [facility] Last Admin: 11/09/17 10:58 Dose: 1 applic Oxycodone/Acetaminophen (Percocet 5/325 Tab*) 1 tab PO Q4H PRN PRN Reason: Pain Last Admin: 11/09/17 13:48 Dose: 1 tab
[2017-11-10] MEDS: ceFAZolin 1 GM VIAL(*) 1 GM in D5W 50 ML BAG* 50 ML IVPB SCH ×4 (03:13→21:27)
[2017-11-10] MEDS: Heparin VIAL(*) 5000 UNITS/ML VIAL (FIVE THOUSAND) SUBCUT SCH ×3 (04:33→21:27)
[2017-11-10] MEDS: oxyCODONE/Acetamin 5/325 MG* TAB PO PRN ×2 (05:21→21:34)
[2017-11-10] MEDS: Insulin LISPRO* 1 UNITS UNIT SUBCUT SCH ×4 (08:25→21:41)
[2017-11-10] MEDS: Hydrochlorothiazide TAB* 25 MG PO SCH (08:55)
[2017-11-10] MEDS: Metoprolol Tartrate TAB* 100 MG TAB PO SCH ×2 (08:55→21:28)
[2017-11-10] MEDS: Nystatin TOP POWDER* 15 GM BTL TOPICAL SCH ×2 (09:00→21:28)
--- NOTE | 2017-11-10 10:38 | PN ---
Progress Note - Progress Note Date of Service: 11/10/17 SOAP: Subjective: Decreased pain lower leg, improved ability to walk with PT and on own. Hospitalist working hard to manage HTN & DM. Objective: LLE: - Decreased swelling left lower leg. Decreased size of area of erythema. - No tenderness to palpation of calf, which is improvement from last exam. - VAC in place. Good seal. - Blood in VAC cannister without purulence. - NVID - PROM -63 plantar flexion Selected Entries 11/10/17 07:31 Temperature 97.8 F Pulse Rate 78 Respiratory 20 Rate Blood Pressure 163/76 (mmHg) O2 Sat by Pulse 90 Oximetry Laboratory Tests 11/05/17 11/06/17 11/08/17 05:44 06:38 06:35 WBC 16.2 H 11.5 H 12.1 H Hct 33 L 32 L Neut % (Auto) 68.1 73.1 POC Glucose (mg/dL) 11/09/17 11/09/17 11/09/17 12:43 17:08 20:12 WBC Hct Neut % (Auto) POC Glucose (mg/dL) 143 H 211 H 221 H 11/10/17 08:15 WBC Hct Neut % (Auto) POC Glucose (mg/dL) 130 H Assessment: POD 5 and POD 3 from I&Ds left lower leg chronic abscess & placement VAC (in 2nd procedure) Plan: - I let the patient eat now. OR not currently available at a reasonable time today. - NPO post midnight for repeat (and final) I&D and change of wound VAC tomorrow. Tentative time is 1pm. - Discussed with Dr. Greenwood who discussed with case management dispo planning. Likely for discharge Sunday or early this week on oral antibiotics with outpatient wound VAC changes by [facility]. We will try to find a clinically appropriate as well as affordable solution for the patient. - Appreciate Karma input. We will continue IV abx until hospital discharge and then transition to PO.
[2017-11-10] MEDS: glipiZIDE TAB* 5 MG PO SCH ×2 (11:00→17:15)
[2017-11-10] MEDS: metFORMIN* 500 MG TAB PO SCH ×2 (11:00→17:15)
--- NOTE | 2017-11-10 11:37 | PN ---
Subjective Date of Service: 11/10/17 Interval History: Pt feels well.Left leg is less swollen and painful Objective Active Medications: Acetaminophen (Tylenol Tab*) 650 mg PO Q4H PRN PRN Reason: FEVER/PAIN Last Admin: 11/05/17 19:46 Dose: 650 mg Amlodipine Besylate (Norvasc Tab*) 10 mg PO DAILY@1400 [facility] Last Admin: 11/09/17 13:05 Dose: 10 mg Dextrose (D50w Syringe 50 Ml*) 12.5 gm IV PUSH .FOR FS < 60 - SS PRN PRN Reason: FS < 60 Glipizide (Glucotrol Tab*) 10 mg PO BID AC [facility] Last Admin: 11/10/17 11:00 Dose: 10 mg Heparin Sodium (Porcine) (Heparin Vial(*)) 5,000 units SUBCUT Q8HR [facility] Last Admin: 11/10/17 04:33 Dose: Not Given Hydralazine HCl (Apresoline Iv*) 5 mg IV SLOW PU Q6H PRN PRN Reason: BLOOD PRESSURE Last Admin: 11/08/17 04:23 Dose: 5 mg Hydrochlorothiazide (Hydrodiuril Tab*) 25 mg PO DAILY [facility] Last Admin: 11/10/17 08:55 Dose: 25 mg Cefazolin Sodium 1 gm/ (Dextrose) 50 mls @ 200 mls/hr IVPB Q6H [facility] Last Admin: 11/10/17 08:54 Dose: 200 mls/hr Insulin Human Lispro (Humalog*) 0 units SUBCUT ACHS [facility] PRN Reason: Protocol Last Admin: 11/10/17 08:25 Dose: Not Given Metformin HCl (Glucophage*) 1,000 mg PO 0800,1700 [facility] Last Admin: 11/10/17 11:00 Dose: 1,000 mg Metoprolol Tartrate (Lopressor Tab*) 100 mg PO BID [facility] Last Admin: 11/10/17 08:55 Dose: 100 mg Morphine Sulfate (Morphine Vial*) 4 mg IV Q4H PRN PRN Reason: PAIN Last Admin: 11/08/17 16:57 Dose: 4 mg Nystatin (Nystatin Top Powder*) 1 applic TOPICAL BID [facility] Last Admin: 11/10/17 09:00 Dose: 1 applic Oxycodone/Acetaminophen (Percocet 5/325 Tab*) 1 tab PO Q4H PRN PRN Reason: Pain Last Admin: 11/10/17 05:21 Dose: 1 tab Vital Signs - 8 hr 11/10/17 11/10/17 11/10/17 05:21 07:21 07:31 Temperature 97.8 F Pulse Rate 78 Respiratory 18 17 20 Rate Blood Pressure 163/76 (mmHg) O2 Sat by Pulse 90 Oximetry Oxygen Devices in Use Now: Nasal Cannula Appearance: 56 yo f in nAD, aAOx3 Eyes: No Scleral Icterus, PERRLA Ears/Nose/Mouth/Throat: NL Teeth, Lips, Gums, Mucous Membranes Moist Neck: NL Appearance and Movements; NL JVP, Trachea Midline Respiratory: Symmetrical Chest Expansion and Respiratory Effort, Clear to Auscultation Cardiovascular: NL Sounds; No Murmurs; No JVD, RRR Abdominal: NL Sounds; No Tenderness; No Distention Lymphatic: No Cervical Adenopathy Extremities: No Clubbing, Cyanosis, - - left caldf edema resolved. Vac dressing to applied to a banana shape and size skin defect in medial aspect left calf Skin: No Nodules or Sclerosis Neurological: Alert and Oriented x 3, NL Muscle Strength and Tone Result Diagrams: 11/08/17 06:35 11/08/17 06:35 Microbiology and Other Data: Microbiology 10/30/17 21:24 Aerobic Blood Culture - Preliminary Blood Venous No Growth Day 1 Anaerobic Blood Culture - Preliminary No Growth Day 1 Assess/Plan/Problems-Billing Ms Butcher is a 56 yo F with no medical care since age of 19 who presented to the ER with now with left leg cellulitis. - Patient Problems (1) Cellulitis and abscess of left leg Comment: Ultrasound of left leg revealed abscess overlying medial L ankle and posterior calf. MRI ankle negative for osteo. S/p I&D of left ankle by Dr. Alfonso on 11/05/17, and on 11/07/17, now with wound vac. Strep group B growing from wound cx is resistant to Clindamycin, Ancef started on 09/10/17. Appreciate Dr. Parada's consult As per d/w ortho, pt will have one more vac change in OR prior to d/c that potentially can happen on Sunday11/12/17. Pt is able to pay for the vac dressing device . (2) HTN (hypertension) Comment: BP still elevated with SBP in 160's. For now cont to monitor.Continue lisinopril, lopressor , HCTZ and amlodipine at current doses. (3) DM2 (diabetes mellitus, type 2) Comment: Blood sugars remain under fair control. Continue glipizide, metformin . monitor on ISS. Pt is not interested in insulin tx as outpatient and would rather not do it. (4) Hyponatremia Comment: spurious , due to high sugars (5) DVT prophylaxis Comment: SQ heparin Status and Disposition: .Inpatient
[2017-11-10] MEDS: amLODIPine TAB* 5 MG PO SCH (15:04)
[2017-11-11] MEDS: ceFAZolin 1 GM VIAL(*) 1 GM in D5W 50 ML BAG* 50 ML IVPB SCH ×4 (03:31→20:58)
[2017-11-11] MEDS: Heparin VIAL(*) 5000 UNITS/ML VIAL (FIVE THOUSAND) SUBCUT SCH ×3 (05:42→20:58)
[2017-11-11] MEDS: glipiZIDE TAB* 5 MG PO SCH ×2 (07:42→17:13)
[2017-11-11] MEDS: metFORMIN* 500 MG TAB PO SCH ×2 (07:42→17:13)
[2017-11-11] MEDS: Insulin LISPRO* 1 UNITS UNIT SUBCUT SCH ×4 (07:55→20:57)
[2017-11-11] MEDS: Hydrochlorothiazide TAB* 25 MG PO SCH (07:56)
[2017-11-11] MEDS: Metoprolol Tartrate TAB* 100 MG TAB PO SCH ×2 (08:16→20:57)
[2017-11-11] MEDS: Nystatin TOP POWDER* 15 GM BTL TOPICAL SCH ×2 (08:16→20:59)
[2017-11-11] MEDS ORDERED: Ketorolac INJ* 15 MG/ML 1 ML VIAL IV PUSH ONE (10:21)
[2017-11-11] MEDS ORDERED: Dexamethasone IV* 4 MG/ML 1 ML (4 MG) ONE (11:23)
[2017-11-11] MEDS ORDERED: Ondansetron INJ* 2 MG/ML VIAL ONE (11:23)
[2017-11-11] MEDS ORDERED: Propofol* 10 MG/ML 20 ML BTL IV PUSH ONE (11:23)
[2017-11-11] MEDS ORDERED: Lidocaine 2% PF * 5 ML VIAL ONE (11:23)
[2017-11-11] MEDS ORDERED: Midazolam* 1 MG/ML 5 ML VIAL (5 MG) ONE (11:24)
[2017-11-11] MEDS ORDERED: fentaNYL* 50 MCG/ML 2 ML VIAL (100 MCG VIAL) ONE ×4 (11:24→14:03)
--- NOTE | 2017-11-11 11:46 | PN ---
Progress Note - Progress Note Date of Service: 11/11/17 SOAP: Subjective: Improved comfort. Walked yesterday with PT. NPO past midnight. Objective: LLE: - Mild TTP about VAC site - PROM ankle now 0-40 - NVID Selected Entries 11/11/17 11/11/17 02:53 07:57 Temperature 98.5 F 98.5 F Pulse Rate 69 Respiratory 22 Rate Blood Pressure 171/71 (mmHg) Blood Pressure 98 Mean O2 Sat by Pulse 93 Oximetry Laboratory Tests 11/05/17 11/06/17 11/08/17 05:44 06:38 06:35 WBC 16.2 H 11.5 H 12.1 H Neut % (Auto) 68.1 73.1 POC Glucose (mg/dL) 11/10/17 11/10/17 11/10/17 17:00 20:31 22:39 WBC Neut % (Auto) POC Glucose (mg/dL) 87 69 L 94 11/11/17 07:46 WBC Neut % (Auto) POC Glucose (mg/dL) 114 H Assessment: POD 6 and 4 from I&D L lower leg abscess Plan: - to OR for I&D and VAC change today - continue IV abx - Dispo planning tomorrow morning with wound clinic VAc changes q 3-4 days and then follow up with me November 19- in clinic
[2017-11-11] MEDS ORDERED: ceFAZolin 1 GM in Dextrose (*) 1 GM/50 ML BAG IVPB ONE (11:48)
[2017-11-11] MEDS ORDERED: Bupivacaine 0.25% SDV* 30 ML ONE (11:58)
[2017-11-11] MEDS ORDERED: Ondansetron INJ* 2 MG/ML VIAL IV PRN (13:15)
[2017-11-11] MEDS ORDERED: Naloxone* 0.4 MG/ML 1 ML VIAL IV PRN (13:15)
[2017-11-11] MEDS: fentaNYL* 50 MCG/ML 2 ML VIAL (100 MCG VIAL) IV PRN ×5 (13:23→14:22)
[2017-11-11] MEDS ORDERED: oxyCODONE/Acetamin 5/325 MG* TAB ONE (14:03)
[2017-11-11] MEDS: oxyCODONE/Acetamin 5/325 MG* TAB PO PRN ×2 (14:04→20:56)
[2017-11-11] MEDS: amLODIPine TAB* 5 MG PO SCH (15:18)
--- NOTE | 2017-11-11 16:32 | PN ---
Subjective Date of Service: 11/11/17 Interval History: s/p wound vac change. on 3L. wants to go home on pills but not injectables for DM. Objective Active Medications: Acetaminophen (Tylenol Tab*) 650 mg PO Q4H PRN PRN Reason: FEVER/PAIN Last Admin: 11/05/17 19:46 Dose: 650 mg Amlodipine Besylate (Norvasc Tab*) 10 mg PO DAILY@1400 [facility] Last Admin: 11/11/17 15:18 Dose: 10 mg Dextrose (D50w Syringe 50 Ml*) 12.5 gm IV PUSH .FOR FS < 60 - SS PRN PRN Reason: FS < 60 Fentanyl Citrate (Fentanyl*) 25 mcg IV Q5M PRN PRN Reason: PAIN - MODERATE Last Admin: 11/11/17 14:22 Dose: 25 mcg Glipizide (Glucotrol Tab*) 10 mg PO BID [facility] Last Admin: 11/11/17 07:42 Dose: Not Given Heparin Sodium (Porcine) (Heparin Vial(*)) 5,000 units SUBCUT Q8HR [facility] Last Admin: 11/11/17 13:58 Dose: Not Given Hydralazine HCl (Apresoline Iv*) 5 mg IV SLOW PU Q6H PRN PRN Reason: BLOOD PRESSURE Last Admin: 11/08/17 04:23 Dose: 5 mg Hydrochlorothiazide (Hydrodiuril Tab*) 25 mg PO DAILY [facility] Last Admin: 11/11/17 07:56 Dose: Not Given Cefazolin Sodium 1 gm/ (Dextrose) 50 mls @ 200 mls/hr IVPB Q6H [facility] Last Admin: 11/11/17 15:18 Dose: 200 mls/hr Insulin Human Lispro (Humalog*) 0 units SUBCUT ACHS [facility] PRN Reason: Protocol Last Admin: 11/11/17 11:39 Dose: Not Given Metformin HCl (Glucophage*) 1,000 mg PO 0800,1700 [facility] Last Admin: 11/11/17 07:42 Dose: Not Given Metoprolol Tartrate (Lopressor Tab*) 100 mg PO BID [facility] Last Admin: 11/11/17 08:16 Dose: 100 mg Morphine Sulfate (Morphine Vial*) 4 mg IV Q4H PRN PRN Reason: PAIN Last Admin: 11/08/17 16:57 Dose: 4 mg Naloxone HCl (Narcan*) 0.08 mg IV Q2M PRN PRN Reason: severe induced resp depression Stop: 11/12/17 13:14 Nystatin (Nystatin Top Powder*) 1 applic TOPICAL BID [facility] Last Admin: 11/11/17 08:16 Dose: 1 applic Ondansetron HCl (Zofran Inj*) 4 mg IV ONCE PRN PRN Reason: NAUSEA/VOMITING Oxycodone/Acetaminophen (Percocet 5/325 Tab*) 1 tab PO Q4H PRN PRN Reason: Pain Last Admin: 11/11/17 14:04 Dose: 1 tab Vital Signs - 8 hr 11/11/17 11/11/17 11/11/17 13:13 13:15 13:23 Temperature 97.2 F Pulse Rate 70 73 Respiratory 20 16 Rate Blood Pressure 164/89 172/92 (mmHg) O2 Sat by Pulse 95 93 Oximetry 11/11/17 11/11/17 11/11/17 13:25 13:30 13:31 Temperature Pulse Rate 70 68 Respiratory 18 19 18 Rate Blood Pressure 170/98 180/89 (mmHg) O2 Sat by Pulse 94 93 Oximetry 11/11/17 11/11/17 11/11/17 13:38 13:45 14:00 Temperature 98.1 F Pulse Rate 67 64 Respiratory 18 19 19 Rate Blood Pressure 170/87 170/88 (mmHg) O2 Sat by Pulse 96 92 Oximetry 11/11/17 11/11/17 11/11/17 14:04 14:15 14:22 Temperature Pulse Rate 64 Respiratory 18 18 12 Rate Blood Pressure 173/77 (mmHg) O2 Sat by Pulse 96 Oximetry 11/11/17 11/11/17 11/11/17 14:30 14:45 15:00 Temperature Pulse Rate 61 56 Respiratory 15 13 16 Rate Blood Pressure 162/82 156/79 (mmHg) O2 Sat by Pulse 82 98 96 Oximetry 11/11/17 11/11/17 15:18 16:15 Temperature 97.6 F 97.6 F Pulse Rate 60 60 Respiratory 16 16 Rate Blood Pressure 168/71 168/71 (mmHg) O2 Sat by Pulse 98 99 Oximetry Oxygen Devices in Use Now: Nasal Cannula Appearance: NAD Eyes: No Scleral Icterus Ears/Nose/Mouth/Throat: NL Teeth, Lips, Gums, Mucous Membranes Moist Neck: NL Appearance and Movements; NL JVP Respiratory: - - rales b/l bases Cardiovascular: NL Sounds; No Murmurs; No JVD, RRR Abdominal: No Hepatosplenomegaly, - - obese, soft, nontender. Extremities: No Edema, No Clubbing, Cyanosis, - - left ankle/calf wrapped in BAM with wound vac. serosanguinous drainage. Skin: No Rash or Ulcers, No Nodules or Sclerosis Neurological: Alert and Oriented x 3, NL Sensation, NL Muscle Strength and Tone Result Diagrams: 11/08/17 06:35 11/08/17 06:35 Additional Lab and Data: Laboratory Results - last 24 hr 11/10/17 11/10/17 11/10/17 17:00 20:31 22:39 POC Glucose (mg/dL) 87 69 L 94 11/11/17 11/11/17 11/11/17 07:46 11:22 13:35 POC Glucose (mg/dL) 114 H 111 H 115 H Microbiology and Other Data: Microbiology 11/05/17 14:30 Wound - Left Leg Anaerobic Culture - Final 11/05/17 14:30 Leg Left Skin and Soft Tissue MRSA/MSSA (PCR - Final Mrsa Negative S.aureus Negative 11/05/17 14:30 Leg Left Gram Stain - Final 11/05/17 14:30 Leg Left Wound Culture - Final Strep Agalactiae - (Group B) 10/30/17 21:24 Blood Venous Aerobic Blood Culture - Final No Growth Day 5 10/30/17 21:24 Blood Venous Anaerobic Blood Culture - Final No Growth Day 5 10/30/17 19:45 Urine Urine Culture - Final Assess/Plan/Problems-Billing 56 yo F with no medical care since age of 19 who presented to the ER with now with left leg cellulitis, hypertension, morbid obesity and uncontrolled diabetes mellitus (A1C 14.6). s/p multiple I&D x3 w/ wound vac. - Patient Problems (1) Cellulitis and abscess of left leg Current Visit: Yes Status: Acute Code(s): L03.116 - CELLULITIS OF LEFT LOWER LIMB; L02.416 - CUTANEOUS ABSCESS OF LEFT LOWER LIMB SNOMED Code(s): 418335973 Comment: Ultrasound of left leg revealed abscess overlying medial L ankle and posterior calf. MRI ankle negative for osteo. S/p I&D of left ankle by Dr. Alfonso on 11/05/17, and on 11/07/17, now with wound vac. Strep group B growing from wound cx is resistant to Clindamycin, Ancef started on 09/10/17. Appreciate Dr. Parada's consult ally can happen on Sunday11/12/17. Pt is able to pay for the vac dressing device . (2) DM2 (diabetes mellitus, type 2) Current Visit: Yes Status: Acute Comment: Blood sugars remain under fair control. Continue glipizide, metformin . monitor on ISS. Pt is not interested in insulin tx as outpatient and would rather not do it. (3) DVT prophylaxis Current Visit: Yes Status: Acute Code(s): AIT4328 - SNOMED Code(s): 946517327 Comment: SQ heparin (4) Full code status Current Visit: Yes Status: Acute Code(s): Z78.9 - OTHER SPECIFIED HEALTH STATUS SNOMED Code(s): 829347610 (5) HTN (hypertension) Current Visit: Yes Status: Acute Code(s): I10 - ESSENTIAL (PRIMARY) HYPERTENSION SNOMED Code(s): 00530808 Comment: BP still elevated with SBP in 160-170's. Continue lopressor 100mg BID , HCTZ 25mg and amlodipine 10mg restart lisionpril at 20mg (last 11/06) Adding lasix 20mg po daily given suspicion for volume overload. (6) Hyponatremia Current Visit: Yes Status: Acute Code(s): E87.1 - HYPO-OSMOLALITY AND HYPONATREMIA SNOMED Code(s): 10122363 Comment: psuedohyponatremia, due to high sugars, which has corrected. (7) Sepsis Current Visit: Yes Status: Acute Comment: The patient was septic by sepsis 2 criteria on admisson with leukocytosis/bandemia and tachycardia. Sepsis has now resolved. (8) Acute respiratory failure with hypoxia Current Visit: Yes Status: Acute Code(s): J96.01 - ACUTE RESPIRATORY FAILURE WITH HYPOXIA SNOMED Code(s): 72297519 Comment: get BNP in AM reweigh patient. rales at bases. starting lasix 20mg po daily. consider CXR and ECHO Status and Disposition: medicine Inpatient
[2017-11-11] MEDS: Furosemide TAB* 20 MG PO SCH (17:13)
[2017-11-11] MEDS: Lisinopril TAB* 10 MG PO SCH (17:13)
[2017-11-11] MEDS ORDERED: Morphine VIAL* 4 MG/ML VIAL (1 ml vial) IV ONE ×2 (23:40→23:42)
--- NOTE | 2017-11-12 00:46 | OP ---
DATE OF OPERATION: 11/11/17 - ROOM #414 DATE OF : 62 SURGEON: Camilo Richmond MD DIE FINISHER: None. ANESTHESIOLOGIST: Dr. Jose G Ahn. ANESTHESIA: General anesthesia with LMA. PRE-OP DIAGNOSES: 1. Left lower leg abscess. 2. Left lower leg skin defect. 3. Status post incision, irrigation and debridement, left lower leg on and 11/07/17. POST-OP DIAGNOSES: 1. Left lower leg abscess. 2. Left lower leg skin defect. 3. Status post incision, irrigation and debridement, left lower leg on and 11/07/17. OPERATIVE PROCEDURE: 1. Open incision, irrigation and debridement, left lower leg. 2. Placement of a negative pressure wound therapy device, vacuum-assisted closure, VAC, over an area of greater than 50 cm sq, left lower leg. ANTIBIOTICS: Ancef 1 g IV. IV FLUIDS: 800 cc crystalloid. [id number] TIME: Including application of VAC device, 27 minutes. IRRIGANT: 3 L of irrigation used to the wound. SPECIMEN: None. IMPLANTS: VAC sponge, blue vessel loop used on the skin. COMPLICATIONS: None. ESTIMATED BLOOD LOSS: Minimal. INDICATIONS FOR PROCEDURE: The patient is a 56-year-old woman, [employer], who had not seen a physician in many years, who presented to [facility] with an infection of the left lower leg. Orthopedic Surgery was eventually consulted and advanced imaging was ordered demonstrating abscesses about the left lower leg with overlying cellulitis. I did a consult on the patient in the afternoon of 11/04/17. I had my partner, Dr. Alfonso do an incision, irrigation, and debridement on 11/05/17. He left the wound open with packing. We returned the patient to the operating room on 11/07/17. I removed some additional skin and subcutaneous tissue and debrided some additional infected material. I placed a wound VAC. The patient has noted improved comfort, improved range of motion of the left ankle. Hospital service has been managing her hypertension and diabetes. There was a question of skin about the posterior aspect of the incision being viable or not. The patient was thought to be close to being appropriate for discharge on oral antibiotics. I thought an additional surgical procedure would be prudent. This would allow me to debride any additional skin and subcutaneous tissue that did not seem viable, now 6 days after the index procedure. We will allow additional irrigation, high volume additional removal of purulence. I also wanted to close down the volume of the wound defect over the area of the skin defect by applying a Elliot sandal technique vessel loop closure, now that the skin and soft tissues were of improved quality. I discussed with the patient, risks and potential complications of procedure. DESCRIPTION OF PROCEDURE: Preoperatively, the patient signed a written consent. Operative extremity was marked in preop holding. The patient was taken back to the operating room and placed supine on the operating room table. The patient was sedated and general anesthesia was induced with an LMA. Tourniquet was placed about the left side, but was never inflated. A bump was placed under the contralateral right hemipelvis. The wound VAC was removed. The left lower extremity was prepped with Betadine. Draping was performed. A surgical time-out was performed. I manipulated the left lower leg extensively. This produced some blood, but no purulence out the open wound. There were a couple of small areas of some yellow infected looking material. I debrided this with rongeur and curette and scissors and pickups. I removed tiny bit of skin and subcutaneous tissue. It appeared nonviable about the anterior and posterior edge of the wound. I irrigated the wound with 3 L of normal saline using pulsatile lavage. I was happy with my debridement and that the wound bed, consistent of muscle and fascia, should be feasible for healing by secondary intention, granulation tissue. I next sized a VAC sponge to fit the wound, slightly under sizing it intentionally. I reduced the thickness of the sponge to fit the tissues. I next, using a blue vessel loop and geni, partially closed the incision, using a Elliot sandal technique with a vessel loop of going over the VAC sponge. This successfully closed the area of the skin defect. I next applied the VAC plastic device. I hooked it up to the VAC device. There was no leak. An Alex bandage was used to overwrap the VAC and ankle in the lower leg, which is the patient's preference. The patient was lightened of sedation and LMA was removed. DISPOSITION: The patient was readmitted to the hospitalist service postoperatively. My instructions were for the patient's VAC to continue at 125 mmHg. The patient will continue on Ancef 1 g q.6 hours while an inpatient. I think the patient is appropriate for discharge to home on Keflex 500 mg p.o. 4 times a day. If Infectious Disease Service, Dr. Parada feels otherwise, I deferred his judgment on appropriate antibiotics. I think the patient should undergo a wound VAC change approximately every 4 days, performed at the [facility]. If possible, it would be best if they left the Elliot sandal in place and we are able to slide a VAC sponge underneath this, but I do not know if that would be feasible. I would like to see the patient in my clinic some time between 11/19/17 and 11/22/17 to check the healing of her skin defect. The hospitalist will continue with medical management of hypertension and diabetes as an inpatient and will come up with an appropriate outpatient regimen of medications and followup. I put the patient in for a CRP for tomorrow morning, 11/12/17 labs, just to have a reference point. [id number]/CPS #: [id number] MTDD
[2017-11-12] MEDS: ceFAZolin 1 GM VIAL(*) 1 GM in D5W 50 ML BAG* 50 ML IVPB SCH ×4 (03:05→21:12)
[2017-11-12] MEDS: oxyCODONE/Acetamin 5/325 MG* TAB PO PRN ×4 (03:05→21:11)
[2017-11-12] MEDS: Heparin VIAL(*) 5000 UNITS/ML VIAL (FIVE THOUSAND) SUBCUT SCH ×3 (06:01→21:55)
[2017-11-12 07:12] LABS: ABS Basophils 0.1 10^3/ul (0-0.2); ABS Eosinophils 0.3 10^3/ul (0-0.6); ABS Lymphocytes 2.6 10^3/ul (1.0-4.8); ABS Monocytes 0.5 10^3/ul (0-0.8); ABS Neutrophils 6.4 10^3/ul (1.5-7.7); ABS Nucleated RBC 0 10^3/ul; Eosinophil % 2.7 % (0-6); Hematocrit 33 % (35-47); Hemoglobin 11.1 g/dl (12.0-16.0); Lymphocyte % 26.2 % (25-47); Mean Corpuscular HGB Conc 34 g/dl (31-36); Mean Corpuscular Hemoglobin 30 pg (27-31); Mean Corpuscular Volume 87 fL (80-97); Mean Platelet Volume 7.5 um3 (7.4-10.4); Nucleated Red Blood Cells % 0; Platelet Count 443 10^3/ul (150-450); Red Blood Count 3.76 10^6/ul (4.0-5.4); Red Cell Distribution Width 14 % (10.5-15); White Blood Count 9.8 10^3/ul (3.5-10.8)
[2017-11-12 07:25] LABS: EGFR Non-African American 69.4 (>60)
[2017-11-12] MEDS ORDERED: Magnesium Sulfate 2 GM IV* 2 GM/50 ML BAG IVPB ONE (08:11)
[2017-11-12] MEDS: Lisinopril TAB* 10 MG PO SCH (09:13)
[2017-11-12] MEDS: Furosemide TAB* 20 MG PO SCH (09:13)
[2017-11-12] MEDS: metFORMIN* 500 MG TAB PO SCH ×2 (09:14→17:29)
[2017-11-12] MEDS: glipiZIDE TAB* 5 MG PO SCH ×2 (09:14→17:29)
[2017-11-12] MEDS: Hydrochlorothiazide TAB* 25 MG PO SCH (09:14)
[2017-11-12] MEDS: Insulin LISPRO* 1 UNITS UNIT SUBCUT SCH ×4 (09:15→21:54)
[2017-11-12] MEDS: Metoprolol Tartrate TAB* 100 MG TAB PO SCH ×2 (09:16→21:11)
[2017-11-12] MEDS ORDERED: Potassium Chlor TAB* 20 MEQ TAB.ER PO ONE (10:00)
[2017-11-12] MEDS: Nystatin TOP POWDER* 15 GM BTL TOPICAL SCH ×2 (11:01→22:09)
[2017-11-12] MEDS: amLODIPine TAB* 5 MG PO SCH (13:27)
--- NOTE | 2017-11-12 16:51 | PN ---
Progress Note - Progress Note Date of Service: 11/12/17 SOAP: Subjective: []Patient seen at bedside. She feels well without complaints. Her LLE is painful but tolerable. Objective: []General: Well appearing, NAD LLE: Dressing CDI without surrounding erythema. Sensation intact of exposed toes , and capillary refill less than two seconds. Proximal to dressing without erythema or tenderness. Assessment: []POD 7 and 5 from I&D L lower leg abscess Plan: - to OR for I&D and VAC change today - continue IV abx - Vac form completed today. wound clinic vac changes q 3-4 days and then follow up with Dr Richmond November 19- in clinic <Sara Manley - Last Filed: 11/12/17 16:48> - Progress Note SOAP: Clarification/correction: Patient went to OR yesterday 11/11/17 for repeat I&D and VAC change <Camilo Richmond - Last Filed: 11/12/17 19:56>
--- NOTE | 2017-11-12 20:16 | PN ---
Subjective Date of Service: 11/12/17 Interval History: frustrated with delays getting wound vacc arranged pain and itching near left foot. Started on lasix 20mg po yest, in AM BNP 219. Now on Room Air Objective Active Medications: Acetaminophen (Tylenol Tab*) 650 mg PO Q4H PRN PRN Reason: FEVER/PAIN Last Admin: 11/05/17 19:46 Dose: 650 mg Amlodipine Besylate (Norvasc Tab*) 10 mg PO DAILY@1400 [facility] Last Admin: 11/12/17 13:27 Dose: 10 mg Dextrose (D50w Syringe 50 Ml*) 12.5 gm IV PUSH .FOR FS < 60 - SS PRN PRN Reason: FS < 60 Furosemide (Lasix Tab*) 20 mg PO DAILY [facility] Last Admin: 11/12/17 09:13 Dose: 20 mg Glipizide (Glucotrol Tab*) 10 mg PO BID AC [facility] Last Admin: 11/12/17 17:29 Dose: 10 mg Heparin Sodium (Porcine) (Heparin Vial(*)) 5,000 units SUBCUT Q8HR [facility] Last Admin: 11/12/17 13:27 Dose: 5,000 units Hydralazine HCl (Apresoline Iv*) 5 mg IV SLOW PU Q6H PRN PRN Reason: BLOOD PRESSURE Last Admin: 11/08/17 04:23 Dose: 5 mg Hydrochlorothiazide (Hydrodiuril Tab*) 25 mg PO DAILY [facility] Last Admin: 11/12/17 09:14 Dose: 25 mg Cefazolin Sodium 1 gm/ (Dextrose) 50 mls @ 200 mls/hr IVPB Q6H [facility] Last Admin: 11/12/17 15:12 Dose: 200 mls/hr Insulin Human Lispro (Humalog*) 0 units SUBCUT ACHS [facility] PRN Reason: Protocol Last Admin: 11/12/17 17:30 Dose: Not Given Lisinopril (Prinivil Tab*) 20 mg PO DAILY [facility] Last Admin: 11/12/17 09:13 Dose: 20 mg Metformin HCl (Glucophage*) 1,000 mg PO 0800,1700 [facility] Last Admin: 11/12/17 17:29 Dose: 1,000 mg Metoprolol Tartrate (Lopressor Tab*) 100 mg PO BID [facility] Last Admin: 11/12/17 09:16 Dose: 100 mg Nystatin (Nystatin Top Powder*) 1 applic TOPICAL BID [facility] Last Admin: 11/12/17 11:01 Dose: 1 applic Oxycodone/Acetaminophen (Percocet 5/325 Tab*) 1 tab PO Q4H PRN PRN Reason: Pain Last Admin: 11/12/17 14:36 Dose: 1 tab Vital Signs - 8 hr 11/12/17 11/12/17 11/12/17 14:36 16:00 16:06 Temperature 98.2 F Pulse Rate 75 Respiratory 20 20 Rate Blood Pressure 156/66 (mmHg) O2 Sat by Pulse 93 94 Oximetry 11/12/17 11/12/17 16:36 18:53 Temperature 98.1 F Pulse Rate 76 Respiratory 18 20 Rate Blood Pressure 154/66 (mmHg) O2 Sat by Pulse 93 Oximetry Oxygen Devices in Use Now: None Appearance: NAD Eyes: No Scleral Icterus, PERRLA Ears/Nose/Mouth/Throat: NL Teeth, Lips, Gums Neck: NL Appearance and Movements; NL JVP, Trachea Midline Respiratory: Symmetrical Chest Expansion and Respiratory Effort, Clear to Auscultation Cardiovascular: NL Sounds; No Murmurs; No JVD, RRR Abdominal: NL Sounds; No Tenderness; No Distention, - - obese Extremities: No Edema Skin: - - left leg wrapped w/o strikethru, serosanguinous drainage in wound vac. Neurological: Alert and Oriented x 3, NL Sensation, NL Muscle Strength and Tone Nutrition: Taking PO's, TEN Result Diagrams: 11/12/17 06:49 11/12/17 06:49 Additional Lab and Data: Laboratory Results - last 24 hr 11/12/17 11/12/17 11/12/17 06:49 06:49 06:49 WBC 9.8 RBC 3.76 L Hgb 11.1 L Hct 33 L MCV 87 MCH 30 MCHC 34 RDW 14 Plt Count 443 MPV 7.5 Neut % (Auto) 64.8 Lymph % (Auto) 26.2 [place] % (Auto) 5.2 Eos % (Auto) 2.7 Baso % (Auto) 1.1 Absolute Neuts (auto) 6.4 Absolute Lymphs (auto) 2.6 Absolute Monos (auto) 0.5 Absolute Eos (auto) 0.3 Absolute Basos (auto) 0.1 Absolute Nucleated RBC 0 Nucleated RBC % 0 Sodium 139 Potassium 3.5 Chloride 101 Carbon Dioxide 31 Anion Gap 7 BUN 11 Creatinine 0.85 Est GFR ( Amer) 89.3 Est GFR (Non-Af Amer) 69.4 BUN/Creatinine Ratio 12.9 Glucose 126 H POC Glucose (mg/dL) Calcium 8.5 L Magnesium 1.8 L C-Reactive Protein 16.50 H B-Natriuretic Peptide 219 H 11/12/17 11/12/17 11/12/17 07:53 11:48 17:04 WBC RBC Hgb Hct MCV MCH MCHC RDW Plt Count MPV Neut % (Auto) Lymph % (Auto) [place] % (Auto) Eos % (Auto) Baso % (Auto) Absolute Neuts (auto) Absolute Lymphs (auto) Absolute Monos (auto) Absolute Eos (auto) Absolute Basos (auto) Absolute Nucleated RBC Nucleated RBC % Sodium Potassium Chloride Carbon Dioxide Anion Gap BUN Creatinine Est GFR ( Amer) Est GFR (Non-Af Amer) BUN/Creatinine Ratio Glucose POC Glucose (mg/dL) 134 H 250 H 90 Calcium Magnesium C-Reactive Protein B-Natriuretic Peptide Microbiology and Other Data: Microbiology 11/05/17 14:30 Wound - Left Leg Anaerobic Culture - Final 11/05/17 14:30 Leg Left Skin and Soft Tissue MRSA/MSSA (PCR - Final Mrsa Negative S.aureus Negative 11/05/17 14:30 Leg Left Gram Stain - Final 11/05/17 14:30 Leg Left Wound Culture - Final Strep Agalactiae - (Group B) 10/30/17 21:24 Blood Venous Aerobic Blood Culture - Final No Growth Day 5 10/30/17 21:24 Blood Venous Anaerobic Blood Culture - Final No Growth Day 5 10/30/17 19:45 Urine Urine Culture - Final Assess/Plan/Problems-Billing 56 yo F with no medical care since age of 19 who presented to the ER with now with left leg cellulitis, hypertension, morbid obesity and uncontrolled diabetes mellitus (A1C 14.6). s/p multiple I&D x3 w/ wound vac. - Patient Problems (1) Cellulitis and abscess of left leg Current Visit: Yes Status: Acute Code(s): L03.116 - CELLULITIS OF LEFT LOWER LIMB; L02.416 - CUTANEOUS ABSCESS OF LEFT LOWER LIMB SNOMED Code(s): 956255175 Comment: Ultrasound of left leg revealed abscess overlying medial L ankle and posterior calf. MRI ankle negative for osteo. S/p I&D of left ankle by Dr. Alfonso on 11/05/17, and on 11/07/17, now with wound vac. Strep group B growing from wound cx is resistant to Clindamycin, Ancef started on 09/10/17. Appreciate Dr. Parada's consult Waiting to get wound vac arranged. (2) DM2 (diabetes mellitus, type 2) Current Visit: Yes Status: Acute Comment: Blood sugars remain under fair control. Continue glipizide, metformin . monitor on SSI. Pt is not interested in insulin tx as outpatient and would rather not do it. A1C 14.6 (3) DVT prophylaxis Current Visit: Yes Status: Acute Code(s): TGB3578 - SNOMED Code(s): 481007595 Comment: SQ heparin (4) Full code status Current Visit: Yes Status: Acute Code(s): Z78.9 - OTHER SPECIFIED HEALTH STATUS SNOMED Code(s): 220519175 (5) HTN (hypertension) Current Visit: Yes Status: Acute Code(s): I10 - ESSENTIAL (PRIMARY) HYPERTENSION SNOMED Code(s): 82853127 Comment: BP improved SBP in 130-150's. Continue lopressor 100mg BID , HCTZ 25mg, amlodipine 10mg, lisionpril at 20mg ( last 11/06), lasix 20mg po daily (6) Hyponatremia Current Visit: Yes Status: Acute Code(s): E87.1 - HYPO-OSMOLALITY AND HYPONATREMIA SNOMED Code(s): 93763969 Comment: psuedohyponatremia, due to high sugars, which has corrected. (7) Sepsis Current Visit: Yes Status: Acute Comment: The patient was septic by sepsis 2 criteria on admisson with leukocytosis/bandemia and tachycardia. Sepsis has now resolved. (8) Acute respiratory failure with hypoxia Current Visit: Yes Status: Acute Code(s): J96.01 - ACUTE RESPIRATORY FAILURE WITH HYPOXIA SNOMED Code(s): 59259595 Comment: BNP 210 continue lasix 20mg po daily. now to Room Air. Status and Disposition: medicine Inpatient, waiting on wound vacc arrangments.
[2017-11-13] MEDS: ceFAZolin 1 GM VIAL(*) 1 GM in D5W 50 ML BAG* 50 ML IVPB SCH ×4 (03:09→20:34)
[2017-11-13] MEDS: hydrALAZINE IV* 20 MG/ML VIAL IV SLOW PU PRN (03:39)
[2017-11-13] MEDS: oxyCODONE/Acetamin 5/325 MG* TAB PO PRN (04:11)
[2017-11-13] MEDS: Heparin VIAL(*) 5000 UNITS/ML VIAL (FIVE THOUSAND) SUBCUT SCH ×3 (05:57→22:36)
[2017-11-13] MEDS: Insulin LISPRO* 1 UNITS UNIT SUBCUT SCH ×4 (07:51→20:35)
[2017-11-13] MEDS: Furosemide TAB* 20 MG PO SCH (07:55)
[2017-11-13] MEDS: Hydrochlorothiazide TAB* 25 MG PO SCH (07:55)
[2017-11-13] MEDS: glipiZIDE TAB* 5 MG PO SCH ×2 (07:56→16:37)
[2017-11-13] MEDS: Lisinopril TAB* 10 MG PO SCH (07:56)
[2017-11-13] MEDS: metFORMIN* 500 MG TAB PO SCH ×2 (07:56→16:37)
[2017-11-13] MEDS: Metoprolol Tartrate TAB* 100 MG TAB PO SCH ×2 (07:56→20:35)
[2017-11-13] MEDS ORDERED: oxyCODONE/Acetamin 5/325 MG* TAB PO PRN (11:18)
[2017-11-13] MEDS: Nystatin TOP POWDER* 15 GM BTL TOPICAL SCH ×2 (11:39→23:37)
[2017-11-13] MEDS: amLODIPine TAB* 5 MG PO SCH (13:32)
--- NOTE | 2017-11-13 21:58 | PN ---
Subjective Date of Service: 11/13/17 Interval History: pain better controlled. waiting on wound vac. patient educated at bedside about outpatient diabetic management plan. nystatin Objective Active Medications: Acetaminophen (Tylenol Tab*) 650 mg PO Q4H PRN PRN Reason: FEVER/PAIN Last Admin: 11/05/17 19:46 Dose: 650 mg Amlodipine Besylate (Norvasc Tab*) 10 mg PO DAILY@1400 [facility] Last Admin: 11/13/17 13:32 Dose: 10 mg Dextrose (D50w Syringe 50 Ml*) 12.5 gm IV PUSH .FOR FS < 60 - SS PRN PRN Reason: FS < 60 Furosemide (Lasix Tab*) 20 mg PO DAILY [facility] Last Admin: 11/13/17 07:55 Dose: 20 mg Glipizide (Glucotrol Tab*) 10 mg PO BID AC [facility] Last Admin: 11/13/17 16:37 Dose: 10 mg Heparin Sodium (Porcine) (Heparin Vial(*)) 5,000 units SUBCUT Q8HR [facility] Last Admin: 11/13/17 13:32 Dose: 5,000 units Hydralazine HCl (Apresoline Iv*) 5 mg IV SLOW PU Q6H PRN PRN Reason: BLOOD PRESSURE Last Admin: 11/13/17 03:39 Dose: 5 mg Hydrochlorothiazide (Hydrodiuril Tab*) 25 mg PO DAILY [facility] Last Admin: 11/13/17 07:55 Dose: 25 mg Cefazolin Sodium 1 gm/ (Dextrose) 50 mls @ 200 mls/hr IVPB Q6H [facility] Last Admin: 11/13/17 20:34 Dose: 200 mls/hr Insulin Human Lispro (Humalog*) 0 units SUBCUT ACHS [facility] PRN Reason: Protocol Last Admin: 11/13/17 20:35 Dose: Not Given Lisinopril (Prinivil Tab*) 20 mg PO DAILY [facility] Last Admin: 11/13/17 07:56 Dose: 20 mg Metformin HCl (Glucophage*) 1,000 mg PO 0800,1700 [facility] Last Admin: 11/13/17 16:37 Dose: 1,000 mg Metoprolol Tartrate (Lopressor Tab*) 100 mg PO BID [facility] Last Admin: 11/13/17 20:35 Dose: 100 mg Nystatin (Nystatin Top Powder*) 1 applic TOPICAL BID [facility] Last Admin: 11/13/17 11:39 Dose: Not Given Oxycodone/Acetaminophen (Percocet 5/325 Tab*) 1 tab PO Q4H PRN PRN Reason: PAIN Vital Signs - 8 hr 11/13/17 11/13/17 16:40 18:50 Temperature 97.6 F 97.7 F Pulse Rate 76 82 Respiratory 20 22 Rate Blood Pressure 160/68 160/72 (mmHg) O2 Sat by Pulse 95 97 Oximetry Oxygen Devices in Use Now: None Appearance: NAD. Eyes: No Scleral Icterus, PERRLA Ears/Nose/Mouth/Throat: NL Teeth, Lips, Gums Neck: NL Appearance and Movements; NL JVP Respiratory: Symmetrical Chest Expansion and Respiratory Effort, Clear to Auscultation Cardiovascular: NL Sounds; No Murmurs; No JVD, RRR Abdominal: NL Sounds; No Tenderness; No Distention, - - obese. Extremities: No Edema, - - left ankle/leg with wound vac draining serosanguinus fluid. Neurological: Alert and Oriented x 3, NL Sensation, NL Muscle Strength and Tone Nutrition: Taking PO's Result Diagrams: 11/12/17 06:49 11/12/17 06:49 Additional Lab and Data: Laboratory Results - last 24 hr 11/13/17 11/13/17 11/13/17 07:49 11:29 16:29 POC Glucose (mg/dL) 89 109 H 108 H 11/13/17 20:16 POC Glucose (mg/dL) 67 L Microbiology and Other Data: Microbiology 11/05/17 14:30 Wound - Left Leg Anaerobic Culture - Final 11/05/17 14:30 Leg Left Skin and Soft Tissue MRSA/MSSA (PCR - Final Mrsa Negative S.aureus Negative 11/05/17 14:30 Leg Left Gram Stain - Final 11/05/17 14:30 Leg Left Wound Culture - Final Strep Agalactiae - (Group B) 10/30/17 21:24 Blood Venous Aerobic Blood Culture - Final No Growth Day 5 10/30/17 21:24 Blood Venous Anaerobic Blood Culture - Final No Growth Day 5 10/30/17 19:45 Urine Urine Culture - Final Assess/Plan/Problems-Billing 56 yo F with no medical care since age of 19 who presented to the ER with now with left leg cellulitis, hypertension, morbid obesity and uncontrolled diabetes mellitus (A1C 14.6). s/p multiple I&D x3 w/ wound vac. - Patient Problems (1) Cellulitis and abscess of left leg Current Visit: Yes Status: Acute Code(s): L03.116 - CELLULITIS OF LEFT LOWER LIMB; L02.416 - CUTANEOUS ABSCESS OF LEFT LOWER LIMB SNOMED Code(s): 270497244 Comment: Ultrasound of left leg revealed abscess overlying medial L ankle and posterior calf. MRI ankle negative for osteo. S/p I&D of left ankle by Dr. Alfonso on 11/05/17, and on 11/07/17, now with wound vac. Strep group B growing from wound cx is resistant to Clindamycin, Ancef started on 09/10/17. Appreciate Dr. Parada's consult. Plan keflex as outpatient. Waiting to get wound vac arranged. (2) DM2 (diabetes mellitus, type 2) Current Visit: Yes Status: Acute Comment: Blood sugars remain under fair control. Continue glipizide, metformin . monitor on SSI. Pt is not interested in insulin tx as outpatient and would rather not do it. A1C 14.6 (3) DVT prophylaxis Current Visit: Yes Status: Acute Code(s): XLH3336 - SNOMED Code(s): 517562012 Comment: SQ heparin (4) Full code status Current Visit: Yes Status: Acute Code(s): Z78.9 - OTHER SPECIFIED HEALTH STATUS SNOMED Code(s): 766552224 (5) HTN (hypertension) Current Visit: Yes Status: Acute Code(s): I10 - ESSENTIAL (PRIMARY) HYPERTENSION SNOMED Code(s): 86981166 Comment: SBP in 140-160's. Continue lopressor 100mg BID , HCTZ 25mg, amlodipine 10mg, increase lisionpril to 40mg, lasix 20mg po daily (6) Hyponatremia Current Visit: Yes Status: Acute Code(s): E87.1 - HYPO-OSMOLALITY AND HYPONATREMIA SNOMED Code(s): 40079215 Comment: psuedohyponatremia, due to high sugars, which has corrected. (7) Sepsis Current Visit: Yes Status: Acute Comment: The patient was septic by sepsis 2 criteria on admisson with leukocytosis/bandemia and tachycardia. Sepsis has now resolved. (8) Acute respiratory failure with hypoxia Current Visit: Yes Status: Acute Code(s): J96.01 - ACUTE RESPIRATORY FAILURE WITH HYPOXIA SNOMED Code(s): 93909635 Comment: Required oxygen intermittently during admission, most likely 2/2 volume overload. up to 8L O2 at max. BNP 210 on 11/12 with e/o of rales 11/11. continue lasix 20mg po daily. recommend ECHO as oupatient, none here. Status and Disposition: medicine Inpatient, waiting on wound vacc arrangments.
[2017-11-14] MEDS: ceFAZolin 1 GM VIAL(*) 1 GM in D5W 50 ML BAG* 50 ML IVPB SCH ×3 (03:15→16:14)
[2017-11-14] MEDS: Heparin VIAL(*) 5000 UNITS/ML VIAL (FIVE THOUSAND) SUBCUT SCH ×2 (05:55→14:19)
[2017-11-14] MEDS ORDERED: Lisinopril TAB* 10 MG PO SCH (09:00)
[2017-11-14] MEDS: Insulin LISPRO* 1 UNITS UNIT SUBCUT SCH ×3 (09:15→16:22)
[2017-11-14] MEDS: Hydrochlorothiazide TAB* 25 MG PO SCH (09:28)
[2017-11-14] MEDS: Metoprolol Tartrate TAB* 100 MG TAB PO SCH (09:28)
[2017-11-14] MEDS: Furosemide TAB* 20 MG PO SCH (09:28)
[2017-11-14] MEDS: glipiZIDE TAB* 5 MG PO SCH ×2 (09:28→16:13)
[2017-11-14] MEDS: metFORMIN* 500 MG TAB PO SCH ×2 (09:28→16:12)
[2017-11-14] MEDS: Nystatin TOP POWDER* 15 GM BTL TOPICAL SCH (09:29)
--- NOTE | 2017-11-14 12:17 | PN ---
Progress Note - Progress Note Date of Service: 11/14/17 SOAP: Subjective: []Patient seen at bedside. She feels well without complaints. Her LLE pain is much improved. Denies CP, SOB, dizziness, fever. Objective: [] Vital Signs Temp 97.6 F 11/14/17 11:26 Pulse 66 11/14/17 11:26 Resp 18 11/14/17 11:26 BP 154/72 11/14/17 11:26 Pulse Ox 97 11/14/17 11:26 Intake & Output 11/13/17 11/14/17 11/14/17 18:59 06:59 18:59 Intake Total 1470 480 360 Balance 1470 480 360 Intake: IV Fluids 60 30 ABX - CEFAZOLIN 50 NS (0.9%) 10 30 IVPB 50 ABX - CEFAZOLIN 50 Oral 1410 400 360 Other: Estimated Void Medium Large # Bowel Movements 0 Estimated Stool Amount Small # Voids 3 1 General: Well appearing, NAD LLE: Dressing CDI without surrounding erythema. Sensation intact of exposed toes , and capillary refill less than two seconds. Proximal to dressing without erythema or tenderness. Assessment: []s/p I&D L lower leg abscess Plan: - continue abx per ID/ medicine - DC when medically ready - wound clinic for vac changes q 4 days and then follow up with Dr Richmond November 19 - in clinic <Sara Manley - Last Filed: 11/14/17 12:14> - Progress Note SOAP: Patient and I changed f/u with me in clinic to November 26-. <Camilo Richmond - Last Filed: 11/14/17 18:37>
[2017-11-14] MEDS: amLODIPine TAB* 5 MG PO SCH (14:20)
[2017-11-14 17:26] VITALS: BP 142/66
--- NOTE | 2017-11-15 13:08 | DS ---
DISCHARGE SUMMARY: DATE OF ADMISSION: 10/30/17 DATE OF DISCHARGE: 11/14/17 ADMITTING PROVIDER: Kendra Gutierrez DO ATTENDING PHYSICIAN ON DISCHARGE: Ayden Carl MD CONSULTING ORTHOPEDIC SURGEONS: 1. Dr. Richmond. 2. Dr. Alfonso. PRIMARY CARE PHYSICIAN: None prior to admission, but was referred to establish care with Dr. Roel Vences. CONSULTING INFECTIOUS DISEASE PHYSICIAN: Dr. Ovi Parada. CHIEF COMPLAINT: Left lower extremity redness and swelling. PRINCIPAL DIAGNOSES: 1. Multiple abscesses and cellulitis of the left lower extremity, status post incision and drainage. 2. Sepsis 3. Severely poorly uncontrolled diabetes mellitus. 4. Hypertension. HISTORY OF PRESENT ILLNESS AND HOSPITAL COURSE: Kenyatta Butcher is a 56-year- old female with past medical history of nonmedical care since the age of 19 given her christianity of [employer]. Two weeks prior to admission, she began having left lower extremity redness, felt like she had flu-like illness with lightheadedness and dizziness. She fell into the bottom of a step. She sprained her ankle and shortly thereafter redness in her toes began and then spread up her leg. She has been unable to walk on it and had reduce mobility in the ankle. She was seen in Urgent Care and then referred to the emergency room. Initial workup was significant for glucose of 442, A1c of 14.6, BNP of 165. She was initially started on IV vancomycin and ID consultation with Dr. Parada resulted in change to initially IV clindamycin; however; strep group B growing from the wound culture showed resistance to clindamycin and Ancef was started on 11/08/17. She had I and D with Dr. Alfonso on 11/05/17, repeat procedure with Dr. Richmond on 11/07/17 and 11/11/17, which included placement of a wound VAC. This was after ultrasound and ankle MRI, both showed concerns for multiple abscesses. The patient was quite resistant to the idea of starting insulin despite meeting with religious educator. She was started on metformin 1000 mg p.o. b.i.d. as well as glipizide 10 mg p.o. b.i.d. a.c. She attests to wanting to try diet and exercise, lifestyle modifications first. Her blood pressure was also poorly controlled and eventually improved on multiple medications including metoprolol tartrate 100 mg p.o. b.i.d., lisinopril 40 mg daily, hydrochlorothiazide 25 mg daily, and amlodipine 10 mg daily. She had some perioperative hypoxia, weight gain, and had modestly elevated BNP of 219 on 11/12/17. She was given a few days of p.o. Lasix after she also had rales on exam and was able to be weaned off oxygen. She is being discharged with a course of cephalexin for additional 7 days. She is going to follow up with the wound care clinic on 11/16/17, Dr. Richmond between 11/26/17 and 11/29/17, and also follow up with Dr. Ovi Parada. She was set up with primary care doctor. She did not have medical insurance and desires to be self-pay at this time. Wound VAC was eventually arranged through [facility]. DISCHARGE MEDICATIONS: Include: 1. Amlodipine 10 mg p.o. daily. 2. Keflex 500 mg p.o. four times a day for 7 days. 3. Glipizide 10 mg p.o. b.i.d. 4. Hydrochlorothiazide 25 mg p.o. daily. 5. Lisinopril 40 mg p.o. daily. 6. Metformin 1000 mg p.o. b.i.d. 7. Metoprolol tartrate 100 mg p.o. b.i.d. 8. Nystatin topical powder b.i.d. 9. Oxycodone/acetaminophen 5/325 mg 1 tab p.o. q.4 hours p.r.n. DISCHARGE DIET: Heart healthy, carbohydrate consistent. ACTIVITY LEVEL: No restrictions. FOLLOWUP: The patient has appointment with Dr. Roel Vences on 11/19/17, at 10 a.m.; wound care clinic on 11/16/17 at 9:30 a.m.; Dr. Richmond should be seen between 11/26/17 and 11/29/17; should follow up with Dr. Parada within 1 to 2 weeks as well. She will need to have close monitoring of her blood sugars and blood pressure. Consideration for outpatient echocardiogram given her volume overload transiently in the hospital with hypoxic respiratory failure and risk factors of poorly controlled hypertension and diabetes. TIME SPENT: On this discharge 45 minutes. [id number]/[facility] #: [id number] WILLIAM
== END 2017-11-14 17:00 | disposition home or self-care (01) | DRG 853 ==
LOC: ED 14:39 → MED 19:59
PROVIDERS: ADMIT Pediatrics; ATTEND Internal Medicine
PROC: 0JDP0ZZ Extraction of Left Lower Leg Subcutaneous Tissue and Fascia, Open Approach (ICD-10-PCS; principal; 2017-11-05 14:00)
PROC: 0JBP0ZZ Excision of Left Lower Leg Subcutaneous Tissue and Fascia, Open Approach (ICD-10-PCS; 2017-11-07)
PROC: 0JBP0ZZ Excision of Left Lower Leg Subcutaneous Tissue and Fascia, Open Approach (ICD-10-PCS; 2017-11-11)
DX: A41.9 Sepsis, unspecified organism (principal); J96.01 Acute respiratory failure with hypoxia; L97.429 Non-pressure chronic ulcer of left heel and midfoot with unspecified severity; L03.116 Cellulitis of left lower limb; N39.0 Urinary tract infection, site not specified; E87.1 Hypo-osmolality and hyponatremia; L02.416 Cutaneous abscess of left lower limb; E11.621 Type 2 diabetes mellitus with foot ulcer; Z82.3 Family history of stroke; Z81.8 Family history of other mental and behavioral disorders; I10 Essential (primary) hypertension; E11.65 Type 2 diabetes mellitus with hyperglycemia; B95.1 Streptococcus, group B, as the cause of diseases classified elsewhere; E66.01 Morbid (severe) obesity due to excess calories; Z91.81 History of falling; Z91.013 Allergy to seafood; R40.2362 Coma scale, best motor response, obeys commands, at arrival to emergency department; R40.2142 Coma scale, eyes open, spontaneous, at arrival to emergency department; R40.2252 Coma scale, best verbal response, oriented, at arrival to emergency department; Z68.37 Body mass index [BMI] 37.0-37.9, adult; Z79.84 Long term (current) use of oral hypoglycemic drugs; R09.02 Hypoxemia
CPT/HCPCS: 36415; 80048; 80053; 80061; 81003; 81015; 82947; 83036; 83605; 83735; 83880; 84443; 85025; 85027; 85652; 86140; 87040; 87070; 87073; 87077; 87086; 87186; 87205; 87640; 87641; 93005; 99221; 99284; A9270-GY; A9579; G8978-GP-CK; G8979-GP-CH; G8981-GP-CJ; G8982-GP-CH; J0360; J0690; J0696; J0780; J1100; J1170; J1644; J1885; J2250; J2270; J2405; J2704; J3010; J3370; J3475; Q9967

== ENCOUNTER 2018-11-14 17:01 | Emergency (ER) | payer OTHER ==
--- OUTSIDE RECORDS SUMMARY | 2018-11-14 17:08 | XMS REPORT | Continuity of Care Document ---
:1960 External Reference #:[id number] Author Name Delmis Harris Care Team Providers Name Role Phone Roel Vences III, MD Primary Care Physician Unavailable Payers Date Identification Numbers Payment Provider Subscriber Effective: 2017 Policy Number: [id number] Medicaid Kenyatta Butcher Expires: 2017 Group Name: 1 1 [address] PayID: [id number] [place] [address] Advance Directives Description No Information Available Problems Description No Information Family History Description No Information Available Social History Type Date Description Comments Sex Unknown Marital Status 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 Steglatro 2 by mouth every 60tabs E11.69 Roel Diez 09/06/2018 5mg Tablets day Mine Vences Lisinopril 1 by mouth every 30tabs Roel Diez 01/29/2018 20mg Tablets bill Vences M.D. Blood Pressure Monitor bp machine for 1units I10 Roel Diez 12/26/2017 Digital home bp Mine Vences [facility] [place] Glipizide 1 by mouth once 60tabs Roel E. 10mg Tablets a day Mine Vences Metformin HCL 1 by mouth twice 60tabs Roel E. 500mg Tablets a day Mine Vences Hydrochlorothiazide 1 by mouth every 30tabs Roel Diez 25mg Tablets day Mine Vences Metoprolol Tartrate take 1 tablet by 60tabs Roel Diez 100mg Tablets mouth twice a Mine Vences day History Medications Steglatro 1 by mouth 30tabs E11.69 Roel Vences, 07/30/2018 - 5mg every day M.D. 09/06/2018 Tablets Cephalexin 1 tab by mouth 30tabs L03.116 Camilo Zarate 12/25/2017 - 500mg three times a MD Yi 01/29/2018 Tablets day for 10 days Tramadol HCL 1 tablet by 21tabs Camilo Zarate 12/20/2017 - 50mg mouth every 8 MD Yi 02/18/2018 Tablets hours as needed pain Percocet 1 tab by mouth 15tabs Camilo Zarate 11/23/2017 - 5-325mg every 8 hours MD Yi 01/28/2018 Tablets as needed pain Keflex take 1 tab by 30capkenyon Dior DKamlesh - 500mg mouth three Mine Cabrera 02/18/2018 Capsules times a day Lisinopril 1 by mouth 30tabs Gretchen Lockhart, - 10mg every day M.D. 01/29/2018 Tablets Amlodipine Besylate 1 by mouth 30tabs Roel Vences, - every day M.D. 11/05/2018 5mg Tablets Nystatin apply twice Unknown - daily until 11/05/2018 [id number] rash clears as Powder needed Immunizations Description No Information Available Vital Signs Date Vital Result Comment 11/05/2018 2:27pm Height 64 inches 5'4" Weight 221.38 lb Heart Rate 50 /min BP Systolic 164 mmHg BP Diastolic 77 mmHg Body Temperature 97.9 F O2 % BldC Oximetry 95 % BMI (Body Mass Index) 38.0 kg/m2 07/30/2018 3:33pm Height 65 inches 5'5" Weight 222.00 lb Heart Rate 69 /min BP Systolic Sitting 150 mmHg BP Diastolic Sitting 88 mmHg O2 % BldC Oximetry 92 % BMI (Body Mass Index) 36.9 kg/m2 02/27/2018 11:54am Height 65 inches 5'5" Weight 215.00 lb Heart Rate 66 /min BP Systolic Sitting 128 mmHg BP Diastolic Sitting 62 mmHg O2 % BldC Oximetry 97 % BMI (Body Mass Index) 35.8 kg/m2 02/19/2018 2:20pm Height 65 inches 5'5" Weight 212.00 lb Heart Rate 79 /min Respiratory Rate 15 /min Pain Level 0 BMI (Body Mass Index) 35.3 kg/m2 01/29/2018 3:52pm Weight 212.00 lb Heart Rate 60 /min BP Systolic Sitting 140 mmHg BP Diastolic Sitting 80 mmHg O2 % BldC Oximetry 94 % 01/17/2018 2:20pm Height 65 inches 5'5" Weight 214.00 lb Heart Rate 78 /min BP Systolic 132 mmHg BP Diastolic 72 mmHg Respiratory Rate 12 /min Pain Level 0 BMI (Body Mass Index) 35.6 kg/m2 01/03/2018 1:59pm Height 65 inches 5'5" Heart Rate 56 /min BP Systolic 120 mmHg BP Diastolic 82 mmHg Respiratory Rate 16 /min Body Temperature 97.2 F Pain Level 7 12/26/2017 10:55am Height 65 inches 5'5" Weight 214.00 lb Heart Rate 53 /min BP Systolic 163 mmHg BP Diastolic 76 mmHg Body Temperature 97.0 F O2 % BldC Oximetry 97 % BMI (Body Mass Index) 35.6 kg/m2 12/25/2017 11:33am Height 65 inches 5'5" Weight 218.00 lb Heart Rate 72 /min BP Systolic 150 mmHg BP Diastolic 82 mmHg Respiratory Rate 16 /min Body Temperature 97.1 F Pain Level 0 BMI (Body Mass Index) 36.3 kg/m2 2017 1:44pm Height 65 inches 5'5" Heart Rate 66 /min BP Systolic 148 mmHg BP Diastolic 82 mmHg Respiratory Rate 16 /min Body Temperature 97.6 F Pain Level 3 12/04/2017 10:18am Height 65 inches 5'5" Weight 218.00 lb Heart Rate 72 /min BP Systolic Sitting 158 mmHg BP Diastolic Sitting 80 mmHg Respiratory Rate 14 /min Body Temperature 97.2 F BMI (Body Mass Index) 36.3 kg/m2 11/26/2017 1:55pm Height 65 inches 5'5" Weight 215.00 lb BP Systolic 132 mmHg BP Diastolic 81 mmHg Respiratory Rate 15 /min Body Temperature 97.4 F Pain Level 3 BMI (Body Mass Index) 35.8 kg/m2 Results Test Date Facility Test Result H/L Range Note Laboratory test 11/05/2018 [facility] Hemoglobin A1c 6.3 5-7 finding Basic Metabolic 10/29/2018 [facility] Sodium 141 mmol/L N 135- [address] [place] [address] [phone] Chloride 104 mmol/L N 101-111 Co2 Carbon Dioxide 30 mmol/L N 22-32 Glucose 109 mg/dL High 70-100 Blood Urea Nitrogen 28 mg/dL High 6-24 Creatinine 1.09 mg/dL High 0.51-0.95 BUN/Creatinine Ratio 25.7 High 8-20 Calcium 9.7 mg/dL N 8.6-10.3 Egfr Non- 51.9 >60 Egfr 62.8 >60 1 Potassium 5.5 mmol/L High 3.5-5.0 Anion Gap 7 mmol/L N 2-11 Laboratory test 07/30/2018 [facility] Hemoglobin A1c 6.1 5-7 finding Basic Metabolic 07/23/2018 [facility] Sodium 142 mmol/L N 135- [address] [place] [address] [phone] Potassium 3.8 mmol/L N 3.5-5.0 Chloride 106 mmol/L N 101-111 Co2 Carbon Dioxide 30 mmol/L N 22-32 Anion Gap 6 mmol/L N 2-11 Glucose 105 mg/dL High 70-100 Blood Urea Nitrogen 23 mg/dL N 6-24 Creatinine 0.99 mg/dL High 0.51-0.95 BUN/Creatinine Ratio 23.2 High 8-20 Calcium 9.1 mg/dL N 8.6-10.3 Egfr Non- 58.0 >60 Egfr 70.2 >60 2 Laboratory test 01/29/2018 [facility] Hemoglobin A1c 7.0 5-7 finding Urine Microalbumin 12/26/2017 [facility] Ur Microalbumin 18.5 mg /L Random [address] (mg/L) [place] [address] [phone] Urine Creatinine 109.08 mg/dL Urine Microalbumin/Creatinine 16.9 ug/mg N <31 Basic Metabolic 12/04/2017 [facility] Sodium 138 mmol/L Low 139-[address] [place] [address] [phone] Potassium 4.2 mmol/L N 3.5-5.0 Chloride 102 mmol/L N 101-111 Co2 Carbon Dioxide 28 mmol/L N 22-32 Anion Gap 8 mmol/L N 2-11 Glucose 166 mg/dL High 70-100 Blood Urea Nitrogen 19 mg/dL N 6-24 Creatinine 0.90 mg/dL N 0.51-0.95 BUN/Creatinine Ratio 21.1 High 8-20 Calcium 9.2 mg/dL N 8.6-10.3 Egfr Non- 65.0 >60 Egfr 83.6 >60 3 Laboratory test 12/04/2017 [facility] Hemoglobin A1c 9.5 % High 4.0-5.[address] (Glyco HGB) [place] [address] [phone] Lipid Profile 12/04/2017 [facility] Triglycerides 185 5 (Trig/Chol/HDL) [address] mg/[place] [address] [phone] Cholesterol 221 mg/dL 6 HDL Cholesterol 36.9 mg/dL 7 LDL Cholesterol 147 mg/dL 8 1 Because ethnic data is not always readily available, this report includes an eGFR for both -Americans and non- Americans. The National Kidney Disease Education Program (NKDEP) does not endorse the use of the MDRD equation for patients that are not between the ages of 18 and 70, are , have extremes of body size, muscle mass, or nutritional status, or are non- or non-. According to the National Kidney Foundation, irrespective of diagnosis, the stage of the disease is based on the level of kidney function: Stage Description GFR(mL/min/1.73 m(2)) 1 Kidney damage with normal or decreased GFR 90 2 Kidney damage with mild decrease in GFR 60-89 3 Moderate decrease in GFR 30-59 4 Severe decrease in GFR 15-29 5 Kidney failure <15 (or dialysis) 2 Because ethnic data is not always readily available, this report includes an eGFR for both -Americans and non- Americans. The National Kidney Disease Education Program (NKDEP) does not endorse the use of the MDRD equation for patients that are not between the ages of 18 and 70, are , have extremes of body size, muscle mass, or nutritional status, or are non- or non-. According to the National Kidney Foundation, irrespective of diagnosis, the stage of the disease is based on the level of kidney function: Stage Description GFR(mL/min/1.73 m(2)) 1 Kidney damage with normal or decreased GFR 90 2 Kidney damage with mild decrease in GFR 60-89 3 Moderate decrease in GFR 30-59 4 Severe decrease in GFR 15-29 5 Kidney failure <15 (or dialysis) 3 Because ethnic data is not always readily available, this report includes an eGFR for both -Americans and non- Americans. The National Kidney Disease Education Program (NKDEP) does not endorse the use of the MDRD equation for patients that are not between the ages of 18 and 70, are , have extremes of body size, muscle mass, or nutritional status, or are non- or non-. According to the National Kidney Foundation, irrespective of diagnosis, the stage of the disease is based on the level of kidney function: Stage Description GFR(mL/min/1.73 m(2)) 1 Kidney damage with normal or decreased GFR 90 2 Kidney damage with mild decrease in GFR 60-89 3 Moderate decrease in GFR 30-59 4 Severe decrease in GFR 15-29 5 Kidney failure <15 (or dialysis) 4 Therapeutic target for the treatment of diabetes mellitus patients is <7% HBA1C, and in selective patients <6.0%. Please refer to [place] [employer] Association diabetic care guidelines for further information. 5 Desirable: <150 Borderline High: 150-199 High: 200-499 Very High: >500 6 Desirable: <200 Borderline High: 200-239 High: >239 7 Low: <40 Desirable: 40-60 High: >60 8 Desirable: <100 Near Optimal: 100-129 Borderline High: 130-159 High: 160-189 Very High: >189 Procedures Date Code Description Status 12/26/2017 [id number] Mammogram Completed 12/26/2017 [id number] Colonoscopy Completed 12/14/2017 33777 Debridement Skin,& sq Tissue Completed 11/23/2017 90764 Debridement Skin,& sq Tissue Completed 11/11/2017 27747 Negative Pressure Wound Therapy Less Than 50 Square CM Completed 11/11/2017 00544 Debridement Skin, Subcutaneous Tissue & Muscle Completed 11/07/2017 29666 Negative Pressure Wound Therapy Less Than 50 Square CM Completed 11/07/2017 41830 Debridement Skin, Subcutaneous Tissue & Muscle Completed 11/07/2017 40533 Debridement Skin, Subcutaneous Tissue & Muscle Completed 11/05/2017 07773 I&D Of Abscess Complicated Completed 11/05/2017 09845 I&D Of Abscess Complicated Completed Encounters Type Date Location Provider Dx Diagnosis Office Visit 07/30/2018 [facility] Internal Roel Diez E11.69 Type 2 diabetes 3:20p Wayne Vences M.D. mellitus with other [place] specified complication I10 Essential (primary) hypertension Office Visit 02/27/2018 [facility] Bartolo Diez R21 Rash and other 11:40a Wayne Vences M.D. nonspecific skin [place] eruption Office Visit 02/19/2018 [facility]opedic Camilo F S81.802D Unspecified open 2:15p Services Of MD Yi wound, left lower C.M.A. leg, subsequent encounter L02.416 Cutaneous abscess of left lower limb Office Visit 02/15/2018 11:15a [facility] L03.116 [place] [facility] [place], lower limb FACS E11.69 Type 2 diabetes mellitus with other specified complication S81.802D Unspecified open wound, left lower leg, subsequent encounter I87.2 Venous insufficiency (chronic) (peripheral) Office Visit 02/08/2018 11:30a [facility] L03.116 Cellulitis of left [place] [facility] [place] Owen, lower limb FACS E11.69 Type 2 diabetes mellitus with other specified complication S81.802D Unspecified open wound, left lower leg, subsequent encounter I87.2 Venous insufficiency (chronic) (peripheral) Office Visit 01/29/2018 3:40p [facility] Bartolo Diez I10 Essential ( primary) Wayne Vences M.D. hypertension [place] E11.69 Type 2 diabetes mellitus with other specified complication Office Visit 01/25/2018 11:30a [facility] L03.116 Cellulitis of left [facility] [place] [facility] [place] Owen, lower limb FACS E11.69 Type 2 diabetes mellitus with other specified complication L02.416 Cutaneous abscess of left lower limb S81.802D Unspecified open wound, left lower leg, subsequent encounter Office Visit 01/17/2018 Orthopedic Camilo Zarate S81.802D Unspecified open 1:45p Services Of MD Yi wound, left lower C.M.A. leg, subsequent encounter Office Visit 01/11/2018 [facility] S81.802D Unspecified open 11:30a [facility] [place] Owen, wound, left lower FACS leg, subsequent encounter Office Visit 01/04/2018 [facility] L03.116 Cellulitis of 11:30a [facility] [place] [facility] [place] Owen, left lower limb FACS E11.69 Type 2 diabetes mellitus with other specified complication L02.416 Cutaneous abscess of left lower limb S81.802D Unspecified open wound, left lower leg, subsequent encounter Office Visit 01/03/2018 2:00p Orthopedic Camilo Zarate L03.116 Cellulitis of Services Of MD Yi left lower limb C.M.A. L02.416 Cutaneous abscess of left lower limb Office Visit 12/28/2017 11:15a [facility] L03.116 Cellulitis of left [facility] [place] [facility] [place] Owen, lower limb FACS E11.69 Type 2 diabetes mellitus with other specified complication L02.416 Cutaneous abscess of left lower limb S81.802D Unspecified open wound, left lower leg, subsequent encounter Office Visit 12/26/2017 11:00a [facility] Internal Roel Diez L02.416 Cutaneous Medicine - Mine Vences abscess of left [place] lower limb E11.69 Type 2 diabetes mellitus with other specified complication I10 Essential (primary) hypertension E78.00 Pure hypercholesterolemia, unspecified Z68.35 Body mass index (BMI) 35.0-35.9, adult Office Visit 12/25/2017 11:30a Orthopedic Camilo Zarate L03.116 Cellulitis of Services Of MD Yi left lower limb C.M.A. L02.416 Cutaneous abscess of left lower limb E11.69 Type 2 diabetes mellitus with other specified complication E11.628 Type 2 diabetes mellitus with other skin complications Office Visit 12/21/2017 11:15a [facility] L03.116 Cellulitis of left [place] [facility] [place] Owen, lower limb FACS E11.69 Type 2 diabetes mellitus with other specified complication L02.416 Cutaneous abscess of left lower limb S81.802D Unspecified open wound, left lower leg, subsequent encounter Office Visit 2017 1:30p Orthopedic Camilo F L02.416 Cutaneous Services Of MD Yi abscess of left C.M.A. lower limb L03.116 Cellulitis of left lower limb E11.628 Type 2 diabetes mellitus with other skin complications S81.802D Unspecified open wound, left lower leg, subsequent encounter Office Visit 12/05/2017 [facility] Ax[facility] Lynne S81.802D Unspecified open 11:30a [facility] [place] [facility] [place] Tessa wound, left lower leg, subsequent encounter Office Visit 12/04/2017 [facility] Ovi Osorio L97.929 Non-prs chronic 10:30a For Infectious Mine Cabrera [facility] unsp prt of Diseases l low leg w unsp severity E11.65 Type 2 diabetes mellitus with hyperglycemia I10 Essential (primary) hypertension E66.01 Morbid (severe) obesity due to excess calories E11.622 Type 2 diabetes mellitus with other skin ulcer Office Visit 11/30/2017 10:00a [facility] L03.116 Cellulitis of [place] [facility] [place] Owen, left lower limb FACS Office Visit 11/26/2017 1:30p Orthopedic Camilo Zarate L03.116 Cellulitis of Services Of MD Yi left lower limb C.M.A. L02.416 Cutaneous abscess of left lower limb Office Visit 11/16/2017 [facility] E11.628 Type 2 diabetes 9:30a [place] [facility] [place] Owen, mellitus with other FACS skin complications Office Visit 11/14/2017 [facility] Ayden Carl, L03.116 Cellulitis of left 10:04a kiara Lombardo MD lower limb Hospitalists E11.9 Type 2 diabetes mellitus without complications E66.01 Morbid (severe) obesity due to excess calories I10 Essential (primary) hypertension Office Visit 11/13/2017 10:03a [facility] Ayden Carl L03.116 Cellulitis of kiara Lombardo MD left lower limb Hospitalists E11.9 Type 2 diabetes mellitus without complications E66.01 Morbid (severe) obesity due to excess calories I10 Essential (primary) hypertension Office Visit 11/12/2017 10:03a [facility] Ayden Carl, L03.116 Cellulitis of kiara Lombardo MD left lower limb Hospitalists E11.9 Type 2 diabetes mellitus without complications E66.01 Morbid (severe) obesity due to excess calories I10 Essential (primary) hypertension [facility]/11[facility] Cellulitis of kiara Lombardo MD left lower limb Hospitalists E11.9 Type 2 diabetes mellitus without complications E66.01 Morbid (severe) obesity due to excess calories I10 Essential (primary) hypertension [facility] L[facility].116 Cellulitis of 10:01a kiara Lombardo M.D. left lower limb Hospitalists E11.9 Type 2 diabetes mellitus without complications E66.01 Morbid (severe) obesity due to excess calories I10 Essential (primary) hypertension Office Visit 11/09/2017 [facility] Nya [place], L03.116 Cellulitis of 10:00a kiara Lombardo M.D. left lower limb Hospitalists E11.9 Type 2 diabetes mellitus without complications E66.01 Morbid (severe) obesity due to excess calories I10 Essential (primary) hypertension Office Visit 11/09/2017 10:09a [facility] Ovi Osorio L03.116 Cellulitis of For Alec Cabrera M.D. left lower limb Diseases L02.416 Cutaneous abscess of left lower limb M25.572 Pain in left ankle and joints of left foot E11.65 Type 2 diabetes mellitus with hyperglycemia Office Visit 11/08/2017 [facility] Nya [place], L03.116 Cellulitis of 10:00a kiara Lombardo M.D. left lower limb Hospitalists E11.9 Type 2 diabetes mellitus without complications I10 Essential (primary) hypertension E66.01 Morbid (severe) obesity due to excess calories Office Visit 11/07/2017 [facility] Nya [place], L03.116 Cellulitis of 9:59a kiara Lombardo M.D. left lower limb Hospitalists E11.9 Type 2 diabetes mellitus without complications I10 Essential (primary) hypertension E66.01 Morbid (severe) obesity due to excess calories Office Visit 11/06/2017 [facility] Nya [place], L03.116 Cellulitis of 9:59a kiara Lombardo M.D. left lower limb Hospitalists E11.9 Type 2 diabetes mellitus without complications I10 Essential (primary) hypertension E66.01 Morbid (severe) obesity due to excess calories Office [facility] L03.116 Cellulitis of 9:58a kiara Lombardo M.D. left lower limb Hospitalists E11.9 Type 2 diabetes mellitus without complications I10 Essential (primary) hypertension E66.01 Morbid (severe) obesity due to excess calories [facility]/04[facility]oc,kiara Gaffney D.OKamlesh left lower limb Hospitalists E11.9 Type 2 diabetes mellitus without complications I10 Essential (primary) hypertension E66.01 Morbid (severe) obesity due to excess calories Office Visit 11/04/2017 12:03p Orthopedic Camilo F L02.416 Cutaneous Services Of MD Yi abscess of left C.M.A. lower limb L03.116 Cellulitis of left lower limb Office Visit 11/03/2017 [facility] Assoc,kiara Gaffney D.OKamlesh left lower limb Hospitalists E11.9 Type 2 diabetes mellitus without complications I10 Essential (primary) hypertension E66.01 Morbid (severe) obesity due to excess calories Office Visit 11/02/2017 9:55a [facility] Beena L03.116 Cellulitis of Assoc,kiara Gaffney D.O. left lower limb Hospitalists E66.01 Morbid (severe) obesity due to excess calories E11.9 Type 2 diabetes mellitus without complications I10 Essential (primary) hypertension Office Visit 11/01/2017 1:19p [facility] Ovi Osorio L03.116 Cellulitis of For Alec Cabrera M.D. left lower limb Diseases M25.572 Pain in left ankle and joints of left foot E11.65 Type 2 diabetes mellitus with hyperglycemia Office Visit [facility] L03.116 Cellulitis of 9:45a kiara Lombardo M.D. left lower limb Hospitalists E11.9 Type 2 diabetes mellitus without complications I10 Essential (primary) hypertension E66.01 Morbid (severe) obesity due to excess calories Office Visit 10/31/2017 [facility] Nya Timo, L03.116 Cellulitis of 9:35a kiara Lombardo M.D. left lower limb Hospitalists E11.9 Type 2 diabetes mellitus without complications I10 Essential (primary) hypertension E66.01 Morbid (severe) obesity due to excess calories Office Visit 10/31/2017 1:11p [facility] Ovi Osorio L03.116 Cellulitis of For Alec Cabrera M.D. left lower limb Diseases E11.9 Type 2 diabetes mellitus without complications M25.572 Pain in left ankle and joints of left foot E66.9 Obesity, unspecified Office Visit 10/31/2017 12:01p Orthopedic Sara L03.116 Cellulitis of Services Of NADEEN Smith left lower limb Office Visit 10/30/2017 9:27a [facility] Kendra L03.116 Cellulitis of kiara Lombardo DO left lower limb Hospitalists E11.9 Type 2 diabetes mellitus without complications I10 Essential (primary) hypertension E66.01 Morbid (severe) obesity due to excess calories Plan of Treatment 11/05/2018 - Roel Vences M.D.E11.69 Type 2 diabetes mellitus with other specified complicationComments:Home sugars good; A1c today at goal atI10 Essential (primary) hypertensionComments:BPs high; pt advised to only check BP at rest. Continue diet, exercise efforts. Increase Amlodipine to 10 mg daily and call in home BPs on the new dose.E78.00 Pure hypercholesterolemia, unspecifiedComments:Diet Rx only
[2018-11-14 17:20] VITALS: BP 140/68
--- NOTE | 2018-11-14 17:36 | UC ---
Skin Complaint HPI - HPI Summary HPI Summary: 57-year-old female who has some bites on her body which she is afraid her cause from bedbugs. She has 1 area on her right forearm which is small, mildly red and bruised which she states had a small black scab which took her a while to remove but she was able to remove that. The patient helped a friend move a mattress a few days ago and she was concerned possibly the mattress had bedbugs and it however she only had exposure to it for approximately 5 minutes but was holding it against her chest as she moved. - History of Current Complaint Chief Complaint: UCSkin Time Seen by Provider: 11/14/18 17:09 Stated Complaint: SKIN COMPLAINT Hx Obtained From: Patient ?: No Onset/Duration: Gradual Onset Skin Exposure Onset/Duration: Days Ago Timing: Constant Onset Severity: Mild Current Severity: Mild Pain Intensity: 0 Location: Other - When I believe this tick bite is on her right forearm the other small areas appear to be insect bites on her back her left abdomen and left arm. Character: Pruritus - Minimal itching. Aggravating Factor(s): Nothing Alleviating Factor(s): Nothing Associated Signs & Symptoms: Positive: Negative Related History: Insect Bite/Sting - Patient does not know what caused the bites. - Allergy/Home Medications Allergies/Adverse Reactions: Allergies Allergy/AdvReac Type Severity Reaction Status Date / Time shellfish derived Allergy Vomiting Verified 11/14/18 17:20 PMH/Surg Hx/FS Hx/Imm Hx Previously Healthy: Yes Other History Of: Negative For: Anticoagulant Therapy - Surgical History Surgical History: Yes Surgery Procedure, Year, and Place: L leg surgery 2017 - Family History Known Family History: Positive: Unknown - [employer]. None have received medical evaluations - Social History Alcohol Use: None Substance Use Type: None Smoking Status (MU): Never Smoked Tobacco - Immunization History Most Recent Influenza Vaccination: never Most Recent Pneumonia Vaccination: never Review of Systems All Other Systems Reviewed And Are Negative: Yes Skin: Positive: Other - Several areas that appear to be bug bites on her left arm back and left abdomen and one that appears to be a tick bite on her right forearm. Is Patient Immunocompromised?: No Physical Exam Triage Information Reviewed: Yes Appearance: Well-Appearing, No Pain Distress, Well-Nourished Vital Signs: Initial Vital Signs Temp 98.2 F 11/14/18 17:17 Pulse 51 11/14/18 17:17 Resp 18 11/14/18 17:17 BP 140/68 11/14/18 17:17 Pulse Ox 99 11/14/18 17:17 Vital Signs Reviewed: Yes Musculoskeletal Exam: Normal Neurological Exam: Normal Psychological Exam: Normal Skin: Positive: Other - Several areas on the left forearm mid back and left abdomen that appear to be bug bites with no secondary skin infection. There is one that appears on her right forearm which appears to be more of a tick bite and when she describes that it took her a little effort to remove what was there I believe that his tick bite. Course/Dx - Course Course Of Treatment: Patient basically needed the reassurance these were not bedbug bites. I don't believe they are the not inflamed but they do appear to possibly be some sort of insect bite. The soledad on her right forearm and believes tick bite. I'm going to give her the prophylactic doxycycline and she is to follow-up with her primary care provider as needed if she develops any fever or chills, rashes or body aches. - Diagnoses Provider Diagnosis: Tick bite Discharge - Sign-Out/Discharge Documenting (check all that apply): Patient Departure All imaging exams completed and their final reports reviewed: No Studies - Discharge Plan Condition: Fair Disposition: HOME Prescriptions: DOXYcycline CAP(*) [DOXYcycline 100MG CAP(*)] 100 mg PO DAILY 1 Days #2 cap Patient Education Materials: Tick Bite (ED) Referrals: Roel Vences MD [Primary Care Provider] - Additional Instructions: Avoid scratching the areas. No dairy products or antacids or multivitamins 2 hours before you take doxycycline and 2 hours after you take the doxycycline however you want be sure and take it with food. Avoid scratching the other areas. Definite follow-up if the rash worsens. Follow-up with your primary care provider if you develop fever or chills body aches and joint aches or rashes in the next 2-4 weeks. - Billing Disposition and Condition Condition: FAIR Disposition: Home
== END 2018-11-14 17:45 | disposition home or self-care (01) ==
LOC: UCEAST 17:01
DX: S50.862A Insect bite (nonvenomous) of left forearm, initial encounter (principal); S30.861A Insect bite (nonvenomous) of abdominal wall, initial encounter; S20.469A Insect bite (nonvenomous) of unspecified back wall of thorax, initial encounter; W57.XXXA Bitten or stung by nonvenomous insect and other nonvenomous arthropods, initial encounter; Y92.9 Unspecified place or not applicable; Z91.013 Allergy to seafood
CPT/HCPCS: 99212; G0463